=== PATIENT | female | born 1960 | race Caucasian/White ===

== ENCOUNTER 2017-04-28 21:51 | Observation (INO) | payer BC ==
[~2017-04-28 21:51] MED LIST: METH5 PO; PREV15CA20 PO; ST JTAB PO
[2017-04-28 21:52] VITALS: BP 136/74; PULSE 80; RESP 18; TEMP 98.9; O2SAT 97
[2017-04-28] MEDS ORDERED: FLEC1TAB8 PO (22:03)
[2017-04-28] MEDS ORDERED: METH5 PO (22:03)
[2017-04-28] MEDS ORDERED: PREV15CA15 PO (22:03)
[2017-04-28 22:07] VITALS: PULSE 76; RESP 16; O2SAT 98
[2017-04-28] MEDS ORDERED: SODIUM CHLORIDE 0.9% FLUSH 10 ML FLUSH IVF PRN (22:15)
--- NOTE | 2017-04-28 22:29 | PD ---
HPI Chief Complaint: Chest Pain Time Seen by Provider: 22:04 Travel History International Travel<30 days: No Contact w/Intl Traveler<30days: No Traveled to known affect area: No History of Present Illness HPI Patient is a 56-year-old female with a history of palpitations PACs nonsustained V. tach presents the emergency department with evaluation of chest pain in the center of her chest radiating to her back since about 11 AM today. Patient states she has chest pain intermittently and was last stressed approximately 18 months ago. She is followed by Dr. Raymond. Patient states the pain is just aggravating cramping with some mild shortness of breath. She states she has a history of leukemia and breast cancer both of which been in remission since 2001. She denies any long trips history of blood clots. Denies any history of heart attacks. States pain is been fairly constant about 11 AM today. She is tried her flecainide which did not help her pain. PFSH Past Medical History Arthritis: No Heart Rhythm Problems: Yes (Mitral valve prolapse) Cancer: Yes (Breast cancer,Hodgkin Lymphoma) Cardiovascular Problems: Yes High Cholesterol: No Chemotherapy: Yes (2001 hodgkins lymphoma) Chest Pain: Yes (this admit) Congestive Heart Failure: No Cerebrovascular Accident: No Diabetes: No Patient Takes Glucophage: No Diminished Hearing: No Endocrine: Yes Gastrointestinal Disorders: Yes GERD: Yes (GERD) Genitourinary: Yes Hypertension: Yes Musculoskeletal: Yes Neurologic: Yes Psychiatric: No Reproductive: Yes (Total hysterectomy) Respiratory: No Immunizations Current: No Migraines: Yes Radiation Therapy: Yes (1997 breast cx) Seizures: No Sickle Cell Disease: No Thyroid Disease: Yes (Hyperthyroid) Menopausal: Yes Past Surgical History Abdominal Surgery: Yes (Gall bladder removal) AICD: No Appendectomy: Yes Arteriovenous Shunt: No Body Medical Devices: surgical clamps from breast surgery Cardiac Surgery: No Cholecystectomy: Yes Ear Surgery: No Endocrine Surgery: No Eye Surgery: No Gynecologic Surgery: Yes (Total hysterectomy) Hysterectomy: Yes Insulin Pump: No Joint Replacement: No Oral Surgery: No Pacemaker: No Thoracic Surgery: No Tonsillectomy: Yes Other Surgery: Yes (Lumpectomy,tosillectomy) Social History Alcohol Use: No Tobacco Use: No Substance Use: No Allergies-Medications (Allergen,Severity, Reaction): Coded Allergies: Codeine (Unverified Allergy, Intermediate, NASUSEA/VOMITING, 04/28/17) Adhesives (Verified Adverse Reaction, Unknown, RASH, 04/28/17) Reported Meds & Prescriptions Reported Meds & Active Scripts Active Reported Flecainide (Flecainide Acetate) 50 Mg Tab 50 Mg PO BID Tapazole (Methimazole) 5 Mg Tab 2.5 Mg PO DAILY Prevacid (Lansoprazole) 15 Mg Capdr 15 Mg PO DAILY Review of Systems Except as stated in HPI: all other systems reviewed are Neg Physical Exam Narrative GENERAL: Well-developed well-nourished no obvious distress SKIN: Focused skin assessment warm/dry. HEAD: Atraumatic. Normocephalic. EYES: Pupils equal and round. No scleral icterus. No injection or drainage. ENT: No nasal bleeding or discharge. Mucous membranes pink and moist. NECK: Trachea midline. No JVD. CARDIOVASCULAR: Regular rate and rhythm. No murmur appreciated. No gallops no rubs. 2+ bilateral equal pulses in all 4 extremities. RESPIRATORY: No accessory muscle use. Clear to auscultation. Breath sounds equal bilaterally. GASTROINTESTINAL: Abdomen soft, non-tender, nondistended. Hepatic and splenic margins not palpable. MUSCULOSKELETAL: No obvious deformities. No clubbing. No cyanosis. No edema. NEUROLOGICAL: Awake and alert. No obvious cranial nerve deficits. Motor grossly within normal limits. Normal speech. PSYCHIATRIC: Appropriate mood and affect; insight and judgment normal. Data Data Last Documented VS Vital Signs Date Time Temp Pulse Resp B/P Pulse Ox O2 Delivery O2 Flow Rate FiO2 04/28/17 22:59 81 16 116/67 98 Nasal Cannula 2 04/28/17 21:52 98.9 Orders Electrocardiogram (04/28/17 22:05) Ckmb (Isoenzyme) Profile (04/28/17 22:05) Complete Blood Count With Diff (04/28/17 22:05) Comprehensive Metabolic Panel (04/28/17 22:05) Magnesium (Mg) (04/28/17 22:05) Prothrombin Time / Inr (Pt) (04/28/17 22:05) Act Partial Throm Time (Ptt) (04/28/17 22:05) Troponin I (04/28/17 22:05) Chest, Single Ap (04/28/17 22:05) Ecg Monitoring (04/28/17 22:05) Iv Access Insert/Monitor (04/28/17 22:05) Oximetry (04/28/17 22:05) Oxygen Administration (04/28/17 22:05) Sodium Chloride 0.9% Flush (Ns Flush) (04/28/17 22:15) Aspirin Chew (Aspirin Chew) (04/28/17 22:30) Nitroglycerin Sl (Nitrostat Sl) (04/28/17 22:30) Admit Order (Ed Use Only) (04/29/17 ) Activity Bed Rest With Brp (04/29/17 00:26) Vital Signs (Adult) Q4H (04/29/17 00:26) Cardiac Rhythm .As Directed (04/29/17 00:26) Notify Dr: Other .PRN (04/29/17 00:26) Notify Parameters (04/29/17 00:26) Resp Oxygen Nasal Cannula (04/29/17 ) Ckmb (Isoenzyme) Profile (04/29/17 01:00) Ckmb (Isoenzyme) Profile (04/29/17 04:00) Troponin I (04/29/17 01:00) Troponin I (04/29/17 04:00) Electrocardiogram (04/29/17 01:00) Electrocardiogram (04/29/17 04:00) ^ Obtain (04/29/17 00:26) Sodium Chloride 0.9% Flush (Ns Flush) (04/29/17 00:30) Sodium Chloride 0.9% Flush (Ns Flush) (04/29/17 09:00) Mission Systems Engineer / Telemetry [id number].[id number] (04/29/17 00:26) Labs Laboratory Tests Test 04/28/17 22:15 White Blood Count 6.6 TH/MM3 Red Blood Count 4.59 MIL/MM3 Hemoglobin 13.1 GM/DL Hematocrit 39.5 % Mean Corpuscular Volume 86.0 FL Mean Corpuscular Hemoglobin 28.6 PG Mean Corpuscular Hemoglobin 33.3 % Concent Red Cell Distribution Width 12.9 % Platelet Count 178 TH/MM3 Mean Platelet Volume 8.7 FL Neutrophils (%) (Auto) 54.9 % Lymphocytes (%) (Auto) 34.3 % Monocytes (%) (Auto) 7.6 % Eosinophils (%) (Auto) 2.8 % Basophils (%) (Auto) 0.4 % Neutrophils # (Auto) 3.6 TH/MM3 Lymphocytes # (Auto) 2.3 TH/MM3 Monocytes # (Auto) 0.5 TH/MM3 Eosinophils # (Auto) 0.2 TH/MM3 Basophils # (Auto) 0.0 TH/MM3 CBC Comment DIFF FINAL Differential Comment Prothrombin Time 10.2 SEC Prothromb Time International 0.9 RATIO Ratio Activated Partial 28.5 SEC Thromboplast Time Sodium Level 141 MEQ/L Potassium Level 3.4 MEQ/L Chloride Level 105 MEQ/L Carbon Dioxide Level 26.0 MEQ/L Anion Gap 9 MEQ/L Blood Urea Nitrogen 18 MG/DL Creatinine 0.69 MG/DL Estimat Glomerular Filtration 88 ML/MIN Rate Random Glucose 110 MG/DL Calcium Level 8.6 MG/DL Magnesium Level 2.2 MG/DL Total Bilirubin 0.4 MG/DL Aspartate Amino Transf 28 U/L (AST/SGOT) Alanine Aminotransferase 31 U/L (ALT/SGPT) Alkaline Phosphatase 91 U/L Total Creatine Kinase 61 U/L Troponin I LESS THAN 0.02 NG/ML Total Protein 7.7 GM/DL Albumin 3.8 GM/DL MDM Medical Decision Making Medical Screen Exam Complete: Yes Emergency Medical Condition: Yes Interpretation(s) EKG shows normal sinus rhythm normal axis normal R-wave progression. Nonspecific T-wave abnormality in V2 V3. Nondiagnostic for STEMI. This is a borderline EKG. Differential Diagnosis ACS, AMI, palpitations, arrhythmia. Narrative Course Patient roomed in emergency department, she appears well and in no obvious distress. Given nitroglycerin and her chest discomfort was completely relieved. EKG troponin negative. Discussed with the patient that her stress test is out of date as her last one was in December 2015. Recommended observation chest pain center and she is agreeable. Chest pain-free upon admission. Diagnosis Primary Impression: Chest pain Admitting Information Admitting Physician Requests: Observation Condition: Stable Danny Mclain MD Apr 28, 2017 22:29
[2017-04-28 22:30] LABS: AUTOMATED NEUTROPHIL # 3.6 TH/MM3 (1.8-7.7); BASOPHIL % 0.4 % (0.0-2.0); EOSINOPHIL # 0.2 TH/MM3 (0-0.4); EOSINOPHIL % 2.8 % (0.0-4.0); HEMATOCRIT 39.5 % (35.0-46.0); HEMO FLAGS DIFF FINAL; LYMPH % 34.3 % (9.0-44.0); LYMPHOCYTE # 2.3 TH/MM3 (1.0-4.8); MEAN CORPUSCULAR HEMOGLOBIN 28.6 PG (27.0-34.0); MEAN CORPUSCULAR HGB CONC 33.3 % (32.0-36.0); MONO % 7.6 % (0.0-8.0); NEUT % 54.9 % (16.0-70.0); PLATELET COUNT 178 TH/MM3 (150-450); RED BLOOD COUNT 4.59 MIL/MM3 (4.00-5.30); RED CELL DISTRIBUTION WIDTH 12.9 % (11.6-17.2); WHITE BLOOD COUNT 6.6 TH/MM3 (4.0-11.0)
[2017-04-28] MEDS ORDERED: ASPIRIN 81 MG CHEW TAB CHEW ONE (22:30)
[2017-04-28] MEDS: NITROGLYCERIN 0.4 MG SL 25 TABS/BTL SL SCH ×3 (22:35→22:49)
[2017-04-28 22:39] LABS: APTT (PATIENT) 28.5 SEC (24.3-30.1); INTERNATIONAL NORMALIZED RATIO 0.9 RATIO; PROTHROMBIN TIME - PATIENT 10.2 SEC (9.8-11.6)
--- NOTE | 2017-04-28 22:51 | RADRPT ---
EXAM DATE/TIME: 04/28/2017 22:16 [facility] COMPARISON: CHEST SINGLE AP, December 16, 2014, 0:22. INDICATIONS : Chest pain and shortness of breath. MEDICAL HISTORY : Hypertension. Gastroesophageal reflux disease. Mitral Valve Prolapse SURGICAL HISTORY : None. ENCOUNTER: Initial ACUITY: 1 day PAIN SCORE: 6/10 LOCATION: chest FINDINGS: Single AP view of the chest. The lungs are clear. Cardiomediastinal silhouette within normal limits. No evidence of pleural effusion or pneumothorax. CONCLUSION: No acute cardiopulmonary disease identified. Yonatan Thompson MD on April 28, 2017 at 22:49 Board Certified Radiologist. This report was verified electronically.
[2017-04-28 22:59] VITALS: BP 116/67; PULSE 81; RESP 16; O2SAT 98
[2017-04-28 23:07] LABS: CHLORIDE 105 MEQ/L (98-107); POTASSIUM 3.4 MEQ/L (3.5-5.1); SODIUM (NA) 141 MEQ/L (136-145)
[2017-04-28 23:30] LABS: ALKALINE PHOSPHATASE 91 U/L (45-117); ALT (GPT) 31 U/L (10-53); ANION GAP 9 MEQ/L (5-15); AST (GOT) 28 U/L (15-37); BLOOD UREA NITROGEN 18 MG/DL (7-18); CREATINE KINASE 61 U/L (26-192); GLOMERULAR FILTRATION RATE 88 ML/MIN (>89); MAGNESIUM 2.2 MG/DL (1.5-2.5); TOTAL BILIRUBIN ADULT 0.4 MG/DL (0.2-1.0)
[2017-04-29] VITALS (9 sets, daily range): BP systolic 111–117; BP diastolic 62–70; PULSE 13–79; RESP 16–20; TEMP 98.4–98.6; O2SAT 95–96
[2017-04-29] MEDS ORDERED: SODIUM CHLORIDE 0.9% FLUSH 10 ML FLUSH IV FLUSH PRN (00:30)
[2017-04-29 01:53] LABS: CREATINE KINASE 50 U/L (26-192)
[2017-04-29 05:23] LABS: CREATINE KINASE 48 U/L (26-192)
[2017-04-29] MEDS ORDERED: ACETAMINOPHEN 500 MG CPLT PO PRN (07:45)
[2017-04-29] MEDS ORDERED: NITROGLYCERIN 0.4 MG SL 25 TABS/BTL SL PRN (07:45)
[2017-04-29] MEDS ORDERED: ONDANSETRON HCL 4 MG/2 ML VIAL IV PRN (07:45)
--- NOTE | 2017-04-29 08:49 | HHI.HP ---
[facility] Primary Care Physician Berny Sheikh MD Chief Complaint Chest pain and palpitations History of Present Illness 56-year-old female with history of breast cancer, Hodgkin's lymphoma, GERD, hyperthyroidism, and frequent PACs presents to emergency room for further evaluation of chest pain. Onset yesterday 2 PM. Location substernal. Characterized as stabbing and pinching pain. Pain initially intermittent accompanied with palpitations. Throughout the day discomfort and palpations increased in frequency and severity. No radiation of pain. Duration lasted most of yesterday and evening hours. No current chest discomfort. No known precipitating or relieving factors. States aspirin relieved pain "somewhat." Follows with Dr. Raymond and Dr. Feldman since December 2015 for frequent PACs. Recently started on Tambocor 9 days ago for increase in frequency of palpations. Review of Systems General: No fatigue,weakness, fever, chills, or recent illness. Has been in her general state of health. HEENT: Chronic intermittent vertigo due to reported inner ear. Currently following with an ENT as dizziness has returned. No POWER, no vision changes, no nasal congestion or drainage CV: As stated above. Denies any current chest pain, pressure, or palpitations. RESP: No SOB, cough, wheeze, or recent URI. GI: No nausea, vomiting, bowel changes, diarrhea, or constipation. : No dysuria, urgency, frequency. History of frequent UTIs, follows with urologist. EXT: No lower leg edema MS: No discomfort or change in ROM NEURO: No difficulty with balance, LOC, syncopal episodes, motor/sensory deficits. December 2015 near-syncopal event, seen here at [place]. At that time established with Dr. Ramyond, PSYCH: No anxiety, depression, or situational stress. Past Family Social History Allergies: Coded Allergies: Codeine (Unverified Allergy, Intermediate, NASUSEA/VOMITING, 04/28/17) Adhesives (Verified Adverse Reaction, Unknown, RASH, 04/28/17) Past Medical History Breast cancer-in remission since 1997, Hodgkin's lymphomain remission sent 2001 , GERD, mitral valve prolapse, migraines, hyperthyroidism, vertigo, frequent PACs, frequent urinary tract infections Past Surgical History Hysterectomy, appendectomy, cholecystectomy, lumpectomy Reported Medications Active Reported Flecainide (Flecainide Acetate) 50 Mg Tab 50 Mg PO BID Tapazole (Methimazole) 5 Mg Tab 2.5 Mg PO DAILY Omeprazole 20mg PO DAILY Active Ordered Medications Current Medications Medications (Trade) Dose Ordered Sig/Keiko Route Start Time Stop Time Status Last Admin (NS Flush) 2 ml UNSCH PRN IV FLUSH 04/29/17 00:30 (NS Flush) 2 ml BID IV FLUSH 04/29/17 09:00 (Tylenol) 500 mg Q4H PRN PO 04/29/17 07:45 (Zofran Inj) 4 mg Q6H PRN IV 04/29/17 07:45 (Nitrostat Sl) 0.4 mg Q5M PRN SL 04/29/17 07:45 (Aspirin) 325 mg DAILY PO 04/29/17 09:00 (Tambocor) 50 mg BID PO 04/29/17 09:00 (Tapazole) 2.5 mg DAILY PO 04/29/17 09:00 (Protonix) 20 mg DAILY PO 04/29/17 09:00 (Pill Splitter) 1 ea UNSCH PRN OTHER 04/29/17 08:15 Family History Noncontributory for early onset cardiovascular disease. Social History No known hypertension, diabetes, personal coronary artery disease, or hyperlipidemia. Lifelong nonsmoker. Denies any alcohol or illegal drug use. Endorses an active lifestyle. Past cardiac testing 01/12/2016 ETT-negative for stress-induced ischemia. After admission December [address] Raymond. Completed an ECHO and cartotid ultrasounds-reported to both be unremarkable. Drier Feeder is Dr. Raymond. EP blood bank technician is Dr. Feldman. Holter monitor4 months ago, found frequent PACs. Dr. Feldman ordered Tambocor 9 days ago for increasing PACs. Dr. Feldman has requested her to follow up with Dr. Raymond to repeat ECHO and Holter monitor. Seen Dr. Raymond last week and has appointment for repeat echocardiogram this coming Sunday. Physical Exam Vital Signs Vital Signs Date Time Temp Pulse Resp B/P Pulse Ox O2 Delivery O2 Flow Rate FiO2 04/29/17 08:35 98.6 74 16 112/70 96 04/29/17 04:40 13 04/29/17 04:00 98.4 70 20 111/63 96 04/29/17 02:15 73 04/29/17 02:01 98.5 69 18 117/67 96 04/28/17 22:59 81 16 116/67 98 Nasal Cannula 2 04/28/17 22:07 98 Nasal Cannula 2 04/28/17 22:07 76 16 98 Nasal Cannula 2 04/28/17 22:07 76 96 Room Air 04/28/17 21:52 98.9 80 18 136/74 97 Room Air Physical Exam GENERAL: Alert WN, WD, NAD, pleasant, female who appears Jumper than stated age. HEAD: NC, AT NECK: Supple, no masses CV: RRR, without murmur, rub, gallop, no JVD, S1-S2 no S3-S4. No carotid bruits. RESP: Clear lungs throughout bilateral, no crackles, wheeze, rhonchi, symmetrical chest rise, nonlabored, able to speak in full sentences ABD: Soft, NT, ND, no masses, positive bowel tones BACK: No CVAT EXT: Pulses +24, no dependent edema MS: Normal tone 4 extremities, nontender, no obvious deformities, full range of motion NEURO: CN II through CN XII grossly intact, motor strength 5/5 PSYCH: A+O 3, pleasant affect, appropriate speech, appropriate mood and affect , insight and judgment SKIN: Normal turgor, normal texture, no lesions, no rashes, even hair distribution, artificial nails Laboratory Laboratory Tests Test 04/28/17 04/29/17 04/29/17 22:15 01:15 04:10 White Blood Count 6.6 Red Blood Count 4.59 Hemoglobin 13.1 Hematocrit 39.5 Mean Corpuscular Volume 86.0 Mean Corpuscular Hemoglobin 28.6 Mean Corpuscular Hemoglobin 33.3 Concent Red Cell Distribution Width 12.9 Platelet Count 178 Mean Platelet Volume 8.7 Neutrophils (%) (Auto) 54.9 Lymphocytes (%) (Auto) 34.3 Monocytes (%) (Auto) 7.6 Eosinophils (%) (Auto) 2.8 Basophils (%) (Auto) 0.4 Neutrophils # (Auto) 3.6 Lymphocytes # (Auto) 2.3 Monocytes # (Auto) 0.5 Eosinophils # (Auto) 0.2 Basophils # (Auto) 0.0 CBC Comment DIFF FINAL Differential Comment Prothrombin Time 10.2 Prothromb Time International 0.9 Ratio Activated Partial 28.5 Thromboplast Time Sodium Level 141 Potassium Level 3.4 Chloride Level 105 Carbon Dioxide Level 26.0 Anion Gap 9 Blood Urea Nitrogen 18 Creatinine 0.69 Estimat Glomerular Filtration 88 Rate Random Glucose 110 Calcium Level 8.6 Magnesium Level 2.2 Total Bilirubin 0.4 Aspartate Amino Transf 28 (AST/SGOT) Alanine Aminotransferase 31 (ALT/SGPT) Alkaline Phosphatase 91 Total Creatine Kinase 61 50 48 Troponin I LESS THAN 0.02 LESS THAN 0.02 LESS THAN 0.02 Total Protein 7.7 Albumin 3.8 Result Diagram: 04/28/17221404/28/172214 Imaging Last Impressions Chest X-Ray 04/28/172204 Signed Impressions: Service Date/Time: Friday, April 28, 2017 22:16 - CONCLUSION: No acute cardiopulmonary disease identified. Yonatan Thompson MD Course EKG Normal sinus rhythm, normal axis, no ST or T-segment changes Assessment and Plan Assessment and Plan #1 Chest painadmitted to chest pain center. Ruled out with 3 sets of EKGs, cardiac enzymes, and monitored overnight. Will be seen and evaluated by Dr. Andre Cochran. Chest discomfort atypical and most likely will not complete an additional cardiac stress test. This will be determined by Dr. Andre Cochran. Patient agreeable to plan of care. #2 Arrhythmiacontinue cardiac monitoring, no cardiac arrhythmias noted on telemetry, continue Tambocor. #3 GERDcontinue omeprazole #4 Hyperthyroidismcontinue Tapazole 11:00 Seen and evaluated by Dr. Cochran. No further cardiac testing at this time. Instructed to follow up with Dr. Feldman and Dr. Raymond as previously instructed, keeping echocardiogram appointment this Sunday. Jovita Leavitt Apr 29, 2017 08:49
[2017-04-29] MEDS ORDERED: FLECAINIDE ACETATE 100 MG TAB PO SCH (09:00)
[2017-04-29] MEDS ORDERED: METHIMAZOLE 5 MG TAB PO SCH (09:00)
[2017-04-29] MEDS ORDERED: ASPIRIN 325 MG TAB PO SCH (09:00)
[2017-04-29] MEDS ORDERED: PANTOPRAZOLE SOD 20 MG DELAYED RELEASE TAB PO SCH (09:00)
[2017-04-29] MEDS ORDERED: SODIUM CHLORIDE 0.9% FLUSH 10 ML FLUSH IV FLUSH SCH (09:00)
[2017-04-29] MEDS: PILL SPLITTER OTHER PRN ×2 (09:48→11:04)
--- NOTE | 2017-04-29 11:46 | HHI.DCPOC ---
Discharge Care Plan Diagnosis: (1) Atypical chest pain (2) Personal history of cardiac arrhythmia (3) GERD (gastroesophageal reflux disease) Goals to Promote Your Health * To prevent worsening of your condition and complications * To maintain your health at the optimal level Directions to Meet Your Goals Take your medications as prescribed Follow your dietary instruction Follow activity as directed Keep your appointments as scheduled Take your immunizations and boosters as scheduled If your symptoms worsen call your PCP, if no PCP go to Urgent Care Center or Emergency Room Smoking is Dangerous to Your Health. Avoid second hand smoke Call the 24-hour hour crisis hotline for domestic abuse at Jovita Leavitt Apr 29, 2017 11:46
[2017-04-29] MEDS ORDERED: OMEP20TA PO (11:57)
--- NOTE | 2017-04-29 13:20 | EKG ---
Date Performed: 04/29/2017 Time Performed: 04:38:04 PTAGE: 56 years EKG: Sinus rhythm WITH FIRST DEGREE AV BLOCK NONSPECIFIC T-WAVE ABNORMALITY ABNORMAL ECG PREVIOUS TRACING : 04/29/2017 01.14 DOCTOR: Andre Cochran Interpretating Date/Time 04/29/2017 13:18:47
--- NOTE | 2017-04-29 13:24 | EKG ---
Date Performed: 04/29/2017 Time Performed: 01:14:06 PTAGE: 56 years EKG: Sinus rhythm NONSPECIFIC T-WAVE ABNORMALITY BORDERLINE ECG PREVIOUS TRACING : 04/28/2017 21.59 Since previous tracing, no significant change noted DOCTOR: Andre Cochran Interpretating Date/Time 04/29/2017 13:22:49
--- NOTE | 2017-04-29 14:50 | EKG ---
Date Performed: 04/28/2017 Time Performed: 21:59:58 PTAGE: 56 years EKG: Sinus rhythm NONSPECIFIC T-WAVE ABNORMALITY BORDERLINE ECG PREVIOUS TRACING : 01/11/2016 20.24 Since previous tracing, no significant change noted DOCTOR: Andre Cochran Interpretating Date/Time 04/29/2017 14:49:24
== END 2017-04-29 14:46 | disposition home or self-care (01) ==
LOC: NEPC 21:51 → NEDA 04-29 00:29 → NEPFCDU 04-29 02:01
DX: R07.89 Other chest pain (principal); I49.9 Cardiac arrhythmia, unspecified; K21.9 Gastro-esophageal reflux disease without esophagitis; E05.90 Thyrotoxicosis, unspecified without thyrotoxic crisis or storm; R00.2 Palpitations; R42 Dizziness and giddiness; I34.1 Nonrheumatic mitral (valve) prolapse; R06.02 Shortness of breath; I10 Essential (primary) hypertension; I47.2 Ventricular tachycardia; I44.0 Atrioventricular block, first degree; R94.31 Abnormal electrocardiogram [ECG] [EKG]; Z85.3 Personal history of malignant neoplasm of breast; Z85.71 Personal history of Hodgkin lymphoma; Z85.6 Personal history of leukemia; Z87.440 Personal history of urinary (tract) infections
CPT/HCPCS: 71010; 80053; 82550; 83735; 84484; 85025; 85610; 85730; 93005; 99285; G0378

== ENCOUNTER 2017-05-07 06:21 | Observation (INO) | payer BC ==
[~2017-05-07] VITALS: Ht 172.7 cm; Wt 77.0 kg
[2017-05-07] VITALS (10 sets, daily range): BP systolic 98–128; BP diastolic 59–77; PULSE 73–90; RESP 16–20; TEMP 97.6–98.5; O2SAT 95–99
[~2017-05-07 06:21] MED LIST changes: +FLEC1TAB8 PO; +OMEP20TA PO; -PREV15CA20 PO; -ST JTAB PO
[2017-05-07] MEDS ORDERED: IOHEXOL 350 MG/ML 10 ML VIAL (for RAD DIAG) IVCONTRAST ONE (06:22)
--- NOTE | 2017-05-07 07:17 | RADRPT ---
EXAM DATE/TIME: 05/07/2017 07:01 [facility] COMPARISON: CHEST SINGLE AP, April 28, 2017, 22:16. INDICATIONS : Chest pain. MEDICAL HISTORY : Lymphoma. Carcinoma, breast. SURGICAL HISTORY : Appendectomy. Cholecystectomy.Hysterectomy. ENCOUNTER: Initial ACUITY: 2 weeks PAIN SCORE: 7/10 LOCATION: center chest FINDINGS: A single view of the chest demonstrates the lungs to be symmetrically aerated without evidence of mas s, infiltrate or effusion. The cardiomediastinal contours are unremarkable. Osseous structures are intact. Surgical clips in the right axilla CONCLUSION: No acute disease. Cory Lin MD on May 07, 2017 at 7:15 Board Certified Radiologist. This report was verified electronically.
--- NOTE | 2017-05-07 07:48 | EKG ---
Date Performed: 05/07/2017 Time Performed: 06:37:40 PTAGE: 56 years EKG: Sinus rhythm NORMAL ECG PREVIOUS TRACING : 04/29/2017 04.38 No significant change from previous tracing noted. DOCTOR: Aleks De Dios Interpretating Date/Time 05/07/2017 07:46:40
[2017-05-07 08:01] LABS: AUTOMATED NEUTROPHIL # 3.2 TH/MM3 (1.8-7.7); BASOPHIL % 0.2 % (0.0-2.0); EOSINOPHIL # 0.2 TH/MM3 (0-0.4); EOSINOPHIL % 3.3 % (0.0-4.0); HEMATOCRIT 40.4 % (35.0-46.0); HEMO FLAGS DIFF FINAL; LYMPH % 37.8 % (9.0-44.0); LYMPHOCYTE # 2.4 TH/MM3 (1.0-4.8); MEAN CELL VOLUME 86.5 FL (80.0-100.0); MEAN CORPUSCULAR HGB CONC 33.6 % (32.0-36.0); MONO % 7.1 % (0.0-8.0); NEUT % 51.6 % (16.0-70.0); PLATELET COUNT 182 TH/MM3 (150-450); RED BLOOD COUNT 4.67 MIL/MM3 (4.00-5.30); RED CELL DISTRIBUTION WIDTH 13.1 % (11.6-17.2); WHITE BLOOD COUNT 6.2 TH/MM3 (4.0-11.0)
[2017-05-07 08:25] LABS: ANION GAP 8 MEQ/L (5-15); BICARBONATE 25.8 MEQ/L (21.0-32.0); BLOOD UREA NITROGEN 13 MG/DL (7-18); CHLORIDE 104 MEQ/L (98-107); GLOMERULAR FILTRATION RATE 85 ML/MIN (>89); POTASSIUM 3.7 MEQ/L (3.5-5.1); SODIUM (NA) 138 MEQ/L (136-145)
[2017-05-07 08:31] LABS: CREATINE KINASE 52 U/L (26-192)
[2017-05-07] MEDS ORDERED: MORPHINE SULFATE 4 MG/ML INJ IV PUSH ONE (09:00)
--- NOTE | 2017-05-07 10:09 | RADRPT ---
EXAM DATE/TIME: 05/07/2017 09:35 [facility] COMPARISON: No previous studies available for comparison. INDICATIONS : Chest pain with palpitations. IV CONTRAST: 75 cc Omnipaque 350 (iohexol) IV RADIATION DOSE: 7.32 CTDIvol (mGy) MEDICAL HISTORY : Hypertension. Carcinoma, breast. Mitral valve prolapse, Hodgkin's lymphoma SURGICAL HISTORY : Cholecystectomy. Appendectomy. ENCOUNTER: Initial ACUITY: 1 day PAIN SCALE: 0/10 LOCATION: Bilateral chest TECHNIQUE: Volumetric scanning was performed using a multi-row detector CT scanner. The data was post processed with a variety of visualization algorithms including full volume maximum intensity projection, multi -planar sliding thin slab reformation, curved planar reformation, and surface rendering techniques. Using automated exposure control and adjustment of the mA and/or kV according to patient size, radiat ion dose was kept as low as reasonably achievable to obtain optimal diagnostic quality images. DICOM format image data is available electronically for review and comparison. FINDINGS: Thoracic/abdominal aorta: The thoracic and abdominal aorta are normal in caliber and course. No dissection. No surrounding vishnu vinod. In-Flow vessels are patent. The celiac, SMA, JADON, and renal arteries are patent. Heart and mediastinum: The heart is normal in size. No pericardial effusion. No adenopathy. Pulmonary arteries are normal in caliber. Lung parenchyma: The lungs are clear without infiltrate or mass. Bilateral apical pleural thickening is symmetrical. N o appreciable bronchiectasis. Other structures: The gallbladder is surgically absent. The abdominal viscera otherwise unremarkable. CONCLUSION: 1. Aorta is unremarkable. 2. No acute intrathoracic or intra-abdominal abnormality. 3. Prior cholecystectomy. Dequan Quiroz Jr., MD on May 07, 2017 at 10:00 Board Certified Radiologist. This report was verified electronically.
--- NOTE | 2017-05-07 10:17 | PD ---
HPI Chief Complaint: Chest Pain Time Seen by Provider: 07:31 Travel History International Travel<30 days: No Contact w/Intl Traveler<30days: No Traveled to known affect area: No History of Present Illness HPI 56-year-old female came to the emergency room with her with history of left-sided chest pain that radiates to her left shoulder and to her back. Patient says this pain started at 5:30 in the morning. However she has had this pain intermittently for past few weeks. Seen by her senior resident care director Dr. Raymond who did an echocardiogram. Patient is waiting for the test result. Patient has been having frequent PVCs and PACs and was started on flecainide few days ago. She also sees Dr. Feldman who started her on flecanide. Currently her chest pain seems significant and she appeared to be in distress. Vital signs were acceptable. Patient is awake and answering questions appropriately. No aggravating or relieving factors identified. PFSH Past Medical History Narrative Medical List of her past medical, surgical, social and family history is reviewed from the nursing note. Arthritis: No Heart Rhythm Problems: Yes (Mitral valve prolapse) Cancer: Yes (Breast cancer,Hodgkin Lymphoma) Cardiovascular Problems: No High Cholesterol: No Chemotherapy: Yes (2001 hodgkins lymphoma) Chest Pain: Yes (this admit) Congestive Heart Failure: No Cerebrovascular Accident: No Diabetes: No Diminished Hearing: No Endocrine: Yes Gastrointestinal Disorders: Yes GERD: Yes (GERD) Genitourinary: Yes Hypertension: Yes Musculoskeletal: Yes Neurologic: Yes Psychiatric: No Reproductive: Yes (Total hysterectomy) Respiratory: No Immunizations Current: No Migraines: Yes Radiation Therapy: Yes (1997 breast cx right) Seizures: No Sickle Cell Disease: No Thyroid Disease: Yes (Hyperthyroid) Tetanus Vaccination: > 5 Years Influenza Vaccination: Yes Menopausal: Yes Past Surgical History Abdominal Surgery: Yes (Gall bladder removal) AICD: No Appendectomy: Yes Arteriovenous Shunt: No Body Medical Devices: surgical clamps from breast surgery Cardiac Surgery: No Cholecystectomy: Yes Ear Surgery: No Endocrine Surgery: No Eye Surgery: No Gynecologic Surgery: Yes (Total hysterectomy) Hysterectomy: Yes (TOTAL) Insulin Pump: No Joint Replacement: No Oral Surgery: No Pacemaker: No Thoracic Surgery: No Tonsillectomy: Yes (AND ADENOIDS) Other Surgery: Yes (R Lumpectomy with nodes,tosillectomy) Social History Alcohol Use: No Tobacco Use: No Substance Use: No Allergies-Medications (Allergen,Severity, Reaction): Coded Allergies: codeine (Unverified Allergy, Intermediate, NASUSEA/VOMITING, 05/07/17) adhesive (Unverified Adverse Reaction, Unknown, RASH, 05/07/17) Comments List of her allergies reviewed from the nursing note. Reported Meds & Prescriptions Reported Meds & Active Scripts Active Reported Omeprazole 20 Mg Tab 20 Mg PO DAILY Flecainide (Flecainide Acetate) 50 Mg Tab 50 Mg PO BID Tapazole (Methimazole) 5 Mg Tab 2.5 Mg PO DAILY Narrative Medication List of her home medications reviewed from the nursing note. Review of Systems Except as stated in HPI: all other systems reviewed are Neg Physical Exam Narrative GENERAL: Awake, alert, moderate distress SKIN: Focused skin assessment warm/dry. HEAD: Atraumatic. Normocephalic. EYES: Pupils equal and round. No scleral icterus. No injection or drainage. ENT: No nasal bleeding or discharge. Mucous membranes pink and moist. NECK: Trachea midline. No JVD. CARDIOVASCULAR: Regular rate and rhythm. No murmur appreciated. RESPIRATORY: No accessory muscle use. Clear to auscultation. Breath sounds equal bilaterally. GASTROINTESTINAL: Abdomen soft, non-tender, nondistended. Hepatic and splenic margins not palpable. MUSCULOSKELETAL: No obvious deformities. No clubbing. No cyanosis. No edema. NEUROLOGICAL: Awake and alert. No obvious cranial nerve deficits. Motor grossly within normal limits. Normal speech. PSYCHIATRIC: Appropriate mood and affect; insight and judgment normal. Data Data Last Documented VS Vital Signs Date Time Temp Pulse Resp B/P (MAP) Pulse Ox O2 Delivery O2 Flow Rate FiO2 05/07/17 09:33 74 16 98/63 (75) 99 Nasal Cannula 2.00 05/07/17 06:24 98.0 Orders Orders Electrocardiogram (05/07/17 06:44) Complete Blood Count With Diff (05/07/17 06:44) Basic Metabolic Panel (Bmp) (05/07/17 06:44) Ckmb (Isoenzyme) Profile (05/07/17 06:44) Troponin I (05/07/17 06:44) Chest, Single Ap (05/07/17 06:44) Iv Access Insert/Monitor (05/07/17 06:44) Ecg Monitoring (05/07/17 06:44) Oxygen Administration (05/07/17 06:44) Oximetry (05/07/17 06:44) Cta Thor Abd Aorta W Iv C W3d (05/07/17 ) Morphine Inj (Morphine Inj) (05/07/17 09:00) Iohexol 350 Inj (Omnipaque 350 Inj) (05/07/17 06:22) Admit Order (Ed Use Only) (05/07/17 11:27) Labs Laboratory Tests Test 05/07/17 07:15 White Blood Count 6.2 TH/MM3 Red Blood Count 4.67 MIL/MM3 Hemoglobin 13.6 GM/DL Hematocrit 40.4 % Mean Corpuscular Volume 86.5 FL Mean Corpuscular Hemoglobin 29.0 PG Mean Corpuscular Hemoglobin Concent 33.6 % Red Cell Distribution Width 13.1 % Platelet Count 182 TH/MM3 Mean Platelet Volume 9.3 FL Neutrophils (%) (Auto) 51.6 % Lymphocytes (%) (Auto) 37.8 % Monocytes (%) (Auto) 7.1 % Eosinophils (%) (Auto) 3.3 % Basophils (%) (Auto) 0.2 % Neutrophils # (Auto) 3.2 TH/MM3 Lymphocytes # (Auto) 2.4 TH/MM3 Monocytes # (Auto) 0.4 TH/MM3 Eosinophils # (Auto) 0.2 TH/MM3 Basophils # (Auto) 0.0 TH/MM3 CBC Comment DIFF FINAL Differential Comment Blood Urea Nitrogen 13 MG/DL Creatinine 0.71 MG/DL Random Glucose 84 MG/DL Calcium Level 8.6 MG/DL Sodium Level 138 MEQ/L Potassium Level 3.7 MEQ/L Chloride Level 104 MEQ/L Carbon Dioxide Level 25.8 MEQ/L Anion Gap 8 MEQ/L Estimat Glomerular Filtration Rate 85 ML/MIN Total Creatine Kinase 52 U/L Troponin I LESS THAN 0.02 NG/ML MDM Medical Decision Making Medical Screen Exam Complete: Yes Emergency Medical Condition: Yes Medical Record Reviewed: Yes Interpretation(s) Twelve-lead EKG was reviewed by me. Normal sinus rhythm, normal axis, nonspecific ST-T wave changes. Heart rate of 72 bpm. Differential Diagnosis Non-STEMI, ACS, PE, aortic dissection. Narrative Course 10:15 AM blood test results came back and within normal limit. I had ordered 4 mg of IV morphine for the pain but upon reassessment patient said her pain level has come down and she doesn't need it at this point. I discussed the case with her senior resident care director Dr. Raymond who has recommended to admit the patient overnight to medical floor under hospitalist service. I had ordered a CT thoracic aortogram which is negative. Patient will be admitted to hospitalist. Awaiting for the hospitalist to call back. 11:09 AM still awaiting for the hospitalist to call back for admission. Procedures EKG Prior to Arrival: No Physician Communication Physician Communication Dr. Raymond Diagnosis Primary Impression: Chest pain Qualified Codes: R07.9 - Chest pain, unspecified Admitting Information Admitting Physician Requests: Observation Scripts Atorvastatin (Lipitor) 20 Mg Tab 20 MG PO HS for Cholesterol Management, #30 TAB 0 Refills Prov: Arabella Cazares DO 05/08/[address] (Aspirin EC) 81 Mg Tabdr 81 MG PO DAILY for Blood Clot Prevention for 90 Days, #90 TAB 0 Refills Prov: Arabella Cazares DO 05/08/17 Annalise Gamble MD May 07, 2017 10:17
[2017-05-07] MEDS ORDERED: IOHEXOL 350 MG/ML 50 ML BTL (for Cath Lab) OTHER ONE (11:29)
[2017-05-07] MEDS ORDERED: ZOLPIDEM TARTRATE 5 MG TAB PO PRN (11:45)
[2017-05-07] MEDS ORDERED: ONDANSETRON HCL 4 MG/2 ML VIAL IVP PRN (11:45)
[2017-05-07] MEDS ORDERED: MORPHINE SULFATE 4 MG/ML INJ IV PRN ×3 (11:45)
[2017-05-07] MEDS ORDERED: NALOXONE HCL 0.4 MG/ML AMP IV PRN (11:45)
[2017-05-07] MEDS ORDERED: PROCHLORPERAZINE 25 MG SUPP RECTAL PRN (11:45)
[2017-05-07] MEDS ORDERED: BISACODYL 10 MG SUPP RECTAL PRN (11:45)
[2017-05-07] MEDS ORDERED: LACTULOSE SYRUP 20 GM/30 ML CUP PO PRN (11:45)
[2017-05-07] MEDS ORDERED: NITROGLYCERIN 0.4 MG SL 25 TABS/BTL SL PRN (11:45)
[2017-05-07] MEDS ORDERED: MAGNESIUM HYDROXIDE SUSP 30 ML CUP PO PRN (11:45)
[2017-05-07] MEDS ORDERED: SODIUM CHLORIDE 0.9% FLUSH 10 ML FLUSH IV FLUSH PRN ×2 (11:45)
[2017-05-07] MEDS ORDERED: traMADol HCL 50 MG TAB PO PRN ×2 (11:45)
[2017-05-07] MEDS ORDERED: SENNOSIDES 8.6 MG TAB PO PRN (11:45)
[2017-05-07] MEDS ORDERED: ACETAMINOPHEN 325 MG TAB PO PRN ×2 (11:45)
[2017-05-07 12:41] LABS: CREATINE KINASE 42 U/L (26-192)
[2017-05-07] MEDS ORDERED: PILL SPLITTER OTHER PRN (13:30)
[2017-05-07] MEDS ORDERED: ENOXAPARIN SODIUM 40 MG/0.4 ML SYRINGE SQ SCH (14:00)
--- NOTE | 2017-05-07 14:14 | MB ---
cc: ANTONIETA DOYLE M.D. DATE OF CONSULTATION: 05/07/2017 HISTORY OF PRESENT ILLNESS Sol is a very pleasant 56-year-old lady with history of V-tach, placed on flecainide by Dr. Amaro. She said she had a stress test about a year ago. I do not have the results but I recall there was no significant findings. She presents to the ER with complaint of severe chest pain, substernal chest area radiating to the infrascapular area, sharp, occurring at rest. Otherwise, denies any fever, chills, cough, GI or bleeding, PND, orthopnea, syncope or dizziness. She notes her palpitations are improved on flecainide but notes that her chest pain is associated with being on the flecainide. PAST MEDICAL HISTORY Per history of present illness. 1. She has a history of breast cancer. 2. Hodgkin's lymphoma. 3. GERD. 4. Hypertension. 5. Hysterectomy. 6. Hyperthyroidism. 7. Cholecystectomy. 8. Appendectomy. 9. Adenoidectomy. 10. Right lumpectomy. SOCIAL HISTORY Denies tobacco or alcohol use. ALLERGIES CODEINE AND ADHESIVES. MEDICATIONS Prior to admission: 1. Omeprazole 20 daily. 2. Flecainide 50 mg b.i.d. 3. Tapazole 5 mg daily. Medications in the hospital: 1. Tapazole 2.5 daily. 2. Aspirin 325 daily. 3. Flecainide 50 b.i.d. 4. Pantoprazole 20 daily. 5. Lovenox 40 subcu q.24 hours. PHYSICAL EXAMINATION VITAL SIGNS: Blood pressure 109/73, pulse 74, respiratory rate 20, temperature 98.0. GENERAL: She is alert and oriented x 3, in no acute distress. NECK: Supple. No JVD or bruits. CARDIOVASCULAR: Normal, S1, S2. No murmurs, rubs or gallops. LUNGS: Clear to auscultation bilaterally. ABDOMEN: Soft, nontender, nondistended with positive bowel sounds. EXTREMITIES: No lower extremity edema. LABORATORY DATA White count 6.2, hemoglobin 13.6, hematocrit 40.4, platelet count 182, troponin is less than 0.02 x2. Sodium 138, potassium 3.7, chloride 104, bicarb 25.8, BUN 13, creatinine 0.71. IMAGING STUDIES CTA of the chest is unremarkable. No dissection of the aorta. Chest x-ray showed no acute disease. Normal sinus rhythm and is normal. FINAL DIAGNOSES 1. Unstable angina. 2. [place] [employer] class IV angina. 3. History of V-tach. 4. History of lymphoma. 5. History of breast cancer. 6. Suspect she has probably had radiation to the chest. DISCUSSION 1. This patient has severe chest pain at rest which is new onset. Therefore, I do think left heart catheterization is medically necessary due to new onset severe substernal chest pain, [place] [employer] class IV angina, unstable angina, history of V-tach, history of probable radiation to the chest, multiple cardiac risk factors for significant coronary disease. The patient is undecided. I have explained to her the risks of the cath or PCI is 5-10% chance of , stroke, heart attack, bleeding, need for bypass surgery and need for surgery and need for dialysis, need for blood transfusion, bleeding, infection, anaphylaxis and arrhythmia. The patient understands, she also notes that she is not able to lie flat due to vertigo. If this is truly the case would either need to use conscious sedation and/or possibly to perform the procedure while the patient is intubated under general anesthesia, which I have explained to the patient, again she is undecided. We will put her on the schedule, keep her n.p.o. after midnight except for medications. Continue aspirin and flecainide. She is on subcu Lovenox for DVT prophylaxis. MD SONJA Irvin/CHARLIE /1:21 PM /1:51 PM
[2017-05-07] MEDS: SODIUM CHLOR 0.9% 1000 ML INJ 1,000 ML IV SCH ×2 (15:09→21:22)
[2017-05-07] MEDS: PANTOPRAZOLE SOD 20 MG DELAYED RELEASE TAB PO SCH (15:10)
--- NOTE | 2017-05-07 16:42 | HHI.HP ---
[facility] Service [facility] Primary Care Physician Berny Sheikh MD Admission Diagnosis chest pain, rule out ACS Diagnoses: (1) Vertigo, benign positional Diagnosis: Secondary (2) Chest pain Diagnosis: Principal (3) Personal history of cardiac arrhythmia Diagnosis: Secondary (4) Atypical chest pain Diagnosis: Secondary (5) GERD (gastroesophageal reflux disease) Diagnosis: Secondary (6) Hyperthyroidism Diagnosis: Secondary (7) Near syncope Diagnosis: Secondary (8) Headache Diagnosis: Secondary Chief Complaint: chest pain Travel History International Travel<30 Days: No Contact w/Intl Traveler <30 Da: No Traveled to Known Affected Are: No History of Present Illness The patient is a very pleasant 56-year-old lady with history of V-tach, for which she has been placed on flecainide by Dr. Amaro. She said she had a stress test about a year ago. Per chart review there were no significant findings of the stress test. She presents to the ER with complaint of severe chest pain, substernal chest area with radiating to the infrascapular area, sharp, occurring at rest. Otherwise, the patient denies any fever, chills, cough, GI or bleeding, PND, orthopnea, syncope or dizziness. She notes her palpitations are improved on flecainide but notes that her chest pain is associated with being on the flecainide. Patient appears to be quite anxious also at this time. Review of Systems Constitutional: DENIES: Fatigue, Fever, Weight gain, Weight loss, Chills Endocrine: DENIES: Heat/cold intolerance, Polydipsia Eyes: DENIES: Blurred vision, Diplopia, Eye inflammation, Eye pain Ears, nose, mouth, throat: COMPLAINS OF: Vertigo, DENIES: Hearing loss, Nasal discharge, Oral lesions, Throat pain, Hoarseness Respiratory: DENIES: Apneas, Cough, Snoring, Wheezing, Hemoptysis, Sputum production Cardiovascular: COMPLAINS OF: Chest pain, DENIES: Palpitations, Syncope, Dyspnea on Exertion, PND, Lower Extremity Edema Gastrointestinal: DENIES: Abdominal pain, Black stools, Bloody stools, Constipation, Diarrhea, Nausea Genitourinary: DENIES: Abnormal vaginal bleeding Musculoskeletal: DENIES: Joint pain, Muscle aches, Stiffness, Joint Swelling Integumentary: DENIES: Abnormal pigmentation, Pruritus Hematologic/lymphatic: DENIES: Bruising, Lymphadenopathy Immunologic/allergic: DENIES: Eczema, Urticaria Neurologic: DENIES: Abnormal gait, Headache, Localized weakness, Paresthesias, Speech Problems Psychiatric: COMPLAINS OF: Anxiety, DENIES: Confusion, Mood changes, Depression , Hallucinations, Agitation, Suicidal Ideation, Homicidal Ideation Past Family Social History Past Medical History 1. She has a history of breast cancer. 2. Hodgkin's lymphoma. 3. GERD. 4. Hypertension. 5. Hysterectomy. 6. Hyperthyroidism. 7. Cholecystectomy. 8. Appendectomy. 9. Adenoidectomy. 10. Right lumpectomy. Arthritis: No Heart Rhythm Problems: Yes (Mitral valve prolapse) Cancer: Yes (Breast cancer,Hodgkin Lymphoma) Cardiovascular Problems: No High Cholesterol: No Chemotherapy: Yes (2001 hodgkins lymphoma) Chest Pain: Yes (this admit) Congestive Heart Failure: No Cerebrovascular Accident: No Diabetes: No Diminished Hearing: No Endocrine: Yes Gastrointestinal Disorders: Yes GERD: Yes (GERD) Genitourinary: Yes Hypertension: Yes Musculoskeletal: Yes Neurologic: Yes Psychiatric: No Reproductive: Yes (Total hysterectomy) Respiratory: No Immunizations Current: No Migraines: Yes Radiation Therapy: Yes (1997 breast cx right) Seizures: No Sickle Cell Disease: No Thyroid Disease: Yes (Hyperthyroid) Tetanus Vaccination: > 5 Years Influenza Vaccination: Yes Menopausal: Yes Past Surgical History Abdominal Surgery: Yes (Gall bladder removal) AICD: No Appendectomy: Yes Arteriovenous Shunt: No Body Medical Devices: surgical clamps from breast surgery Cardiac Surgery: No Cholecystectomy: Yes Ear Surgery: No Endocrine Surgery: No Eye Surgery: No Gynecologic Surgery: Yes (Total hysterectomy) Hysterectomy: Yes (TOTAL) Insulin Pump: No Joint Replacement: No Oral Surgery: No Pacemaker: No Thoracic Surgery: No Tonsillectomy: Yes (AND ADENOIDS) Other Surgery: Yes (R Lumpectomy with nodes,tosillectomy) 1. She has a history of breast cancer. 2. Hodgkin's lymphoma. 3. GERD. 4. Hypertension. 5. Hysterectomy. 6. Hyperthyroidism. 7. Cholecystectomy. 8. Appendectomy. 9. Adenoidectomy. 10. Right lumpectomy. Reported Medications Reported Meds & Active Scripts Active Reported Omeprazole 20 Mg Tab 20 Mg PO DAILY Flecainide (Flecainide Acetate) 50 Mg Tab 50 Mg PO BID Tapazole (Methimazole) 5 Mg Tab 2.5 Mg PO DAILY Allergies: Coded Allergies: codeine (Unverified Allergy, Intermediate, NASUSEA/VOMITING, 05/07/17) adhesive (Unverified Adverse Reaction, Unknown, RASH, 05/07/17) Active Ordered Medications Current Medications Morphine Sulfate (Morphine Inj) 4 mg ONCE ONCE IV PUSH ; Start 05/07/17 at 09: 00; Stop 05/07/17 at 09:01; Status DC Iohexol (Omnipaque 350 Inj) 75 ml STK-MED ONCE IVCONTRAST Last administered on 05/07/17 06:22; Start 05/07/17 at 06:22; Stop 05/07/17 at 09:50; Status DC Flecainide Acetate (Tambocor) 50 mg BID PO ; Start 05/07/17 at 21:00 Methimazole (Tapazole) 2.5 mg DAILY PO ; Start 05/08/17 at 09:00 Pantoprazole Sodium (Protonix) 20 mg DAILY PO Last administered on 05/07/17 15 :10; Start 05/07/17 at 14:00 Sodium Chloride 1,000 ml @ 100 mls/hr Q10H IV Last administered on 05/07/17 15:09; Start 05/07/17 at 11:33 Sodium Chloride (NS Flush) 2 ml UNSCH PRN IV FLUSH FLUSH AFTER USING IV ACCESS ; Start 05/07/17 at 11:45 Sodium Chloride (NS Flush) 2 ml BID IV FLUSH ; Start 05/07/17 at 21:00 Acetaminophen (Tylenol) 650 mg Q4H PRN PO TEMP > 100.4; Start 05/07/17 at 11:45 Ondansetron HCl (Zofran Inj) 4 mg Q6H PRN IVP NAUSEA OR VOMITING; Start at 11:45 Prochlorperazine (Compazine Supp) 25 mg Q12H PRN RECTAL NAUSEA OR VOMITING; Start 05/07/17 at 11:45 Zolpidem Tartrate (Ambien) 5 mg HS PRN PO INSOMNIA; Start 05/07/17 at 11:45 Enoxaparin Sodium (Lovenox Inj) 40 mg Q24H SQ Last administered on 05/07/17t 15 :10; Start 05/07/17 at 14:00 Acetaminophen (Tylenol) 650 mg Q6H PRN PO PAIN SCALE 1 TO 2; Start 05/07/17 at 11:45 Morphine Sulfate (Morphine Inj) 2 mg Q3H PRN IV Pain 3-5; if unable to take PO ; Start 05/07/17 at 11:45 Morphine Sulfate (Morphine Inj) 4 mg Q3H PRN IV Pain 6-10;if unable to take PO ; Start 05/07/17 at 11:45 Morphine Sulfate (Morphine Inj) 4 mg Q3H PRN IV BREAKTHROUGH PAIN; Start at 11:45 Tramadol HCl (Ultram) 50 mg Q4H PRN PO PAIN SCALE 3 TO 5; Start 05/07/17 at 11: 45 Tramadol HCl (Ultram) 100 mg Q4H PRN PO PAIN SCALE 6 TO 10; Start 05/07/17 at 11:45 Naloxone HCl (Narcan Inj) 0.4 mg UNSCH PRN IV SEE LABEL COMMENTS; Start at 11:45 Senna/Docusate Sodium (Anika-Colace) 1 tab BID PO ; Start 05/07/17 at 21:00 Magnesium Hydroxide (Milk Of Magnesia Liq) 30 ml Q12H PRN PO MILD - MODERATE CONSTIPATION; Start 05/07/17 at 11:45 Sennosides (Senokot) 17.2 mg Q12H PRN PO MODERATE - SEVERE CONSTIPATION; Start 05/07/17 at 11:45 Bisacodyl (Dulcolax Supp) 10 mg DAILY PRN RECTAL SEVERE CONSITIPATION; Start at 11:45 Lactulose (Lactulose Liq) 30 ml DAILY PRN PO SEVERE CONSITIPATION; Start at 11:45 Sodium Chloride (NS Flush) 2 ml BID IV FLUSH ; Start 05/07/17 at 21:00; Status UNV Sodium Chloride (NS Flush) 2 ml UNSCH PRN IV FLUSH FLUSH AFTER USING IV ACCESS ; Start 05/07/17 at 11:45; Status UNV Aspirin (Aspirin) 325 mg DAILY PO ; Start 05/08/17 at 09:00 Nitroglycerin (Nitrostat Sl) 0.4 mg Q5M PRN SL ANGINA; Start 05/07/17 at 11:45 Miscellaneous (Pill Splitter) 1 ea UNSCH PRN OTHER SEE LABEL COMMENTS; Start at 13:30 Family History Some hypertension in the family there is cancers Social History Denies any tobacco alcohol or illicits Physical Exam Vital Signs Vital Signs Date Time Temp Pulse Resp B/P (MAP) Pulse Ox O2 Delivery O2 Flow Rate FiO2 05/07/17 15:57 98.1 74 19 100/63 (75) 96 05/07/17 15:19 05/07/17 14:57 79 18 118/73 (88) 98 Room Air 05/07/17 12:10 74 20 109/73 (85) 98 Room Air 05/07/17 11:53 98 21 05/07/17 09:33 74 16 98/63 (75) 99 Nasal Cannula 2.00 05/07/17 07:24 73 16 115/69 (84) 99 Nasal Cannula 2.00 05/07/17 07:00 100 Nasal Cannula 2.00 05/07/17 06:24 98.0 84 16 128/77 (94) 98 Room Air Physical Exam GENERAL: This is a well-nourished, well-developed patient, in no apparent distress. SKIN: No rashes, ecchymoses or lesions. Cool and dry. HEAD: Atraumatic. Normocephalic. No temporal or scalp tenderness. EYES: Pupils equal round and reactive. Extraocular motions intact. No scleral icterus. No injection or drainage. ENT: Nose without bleeding, purulent drainage or septal hematoma. Throat without erythema, tonsillar hypertrophy or exudate. Uvula midline. Airway patent. Tongue is midline NECK: Trachea midline. No JVD or lymphadenopathy. Supple, nontender, no meningeal signs. CARDIOVASCULAR: Regular rate and rhythm without murmurs, gallops, or rubs. S1- S2 no S3 or S4 no heave or thrill or rub or gallop RESPIRATORY: Clear to auscultation. Breath sounds equal bilaterally. No wheezes , rales, or rhonchi. GASTROINTESTINAL: Abdomen soft, non-tender, nondistended. No hepato-splenomegaly , or palpable masses. No guarding. MUSCULOSKELETAL: Extremities without clubbing, cyanosis, or edema. No joint tenderness, effusion, or edema noted. No calf tenderness. Negative Homans sign bilaterally. NEUROLOGICAL: Awake and alert. Cranial nerves II through XII intact. Motor and sensory grossly within normal limits. Five out of 5 muscle strength in all muscle groups. Normal speech. Insight and judgment are good Mood and behavior appropriate Laboratory Laboratory Tests Test 05/07/17 07:15 05/07/17 12:00 White Blood Count 6.2 Red Blood Count 4.67 Hemoglobin 13.6 Hematocrit 40.4 Mean Corpuscular Volume 86.5 Mean Corpuscular Hemoglobin 29.0 Mean Corpuscular Hemoglobin Concent 33.6 Red Cell Distribution Width 13.1 Platelet Count 182 Mean Platelet Volume 9.3 Neutrophils (%) (Auto) 51.6 Lymphocytes (%) (Auto) 37.8 Monocytes (%) (Auto) 7.1 Eosinophils (%) (Auto) 3.3 Basophils (%) (Auto) 0.2 Neutrophils # (Auto) 3.2 Lymphocytes # (Auto) 2.4 Monocytes # (Auto) 0.4 Eosinophils # (Auto) 0.2 Basophils # (Auto) 0.0 CBC Comment DIFF FINAL Differential Comment Blood Urea Nitrogen 13 Creatinine 0.71 Random Glucose 84 Calcium Level 8.6 Sodium Level 138 Potassium Level 3.7 Chloride Level 104 Carbon Dioxide Level 25.8 Anion Gap 8 Estimat Glomerular Filtration Rate 85 Total Creatine Kinase 52 42 Troponin I LESS THAN 0.02 LESS THAN 0.02 Result Diagram: 05/07/1771405/07/17714 Caprini VTE Risk Assessment Caprini VTE Risk Assessment: Mod/High Risk (score >= 2) Caprini Risk Assessment Model Point Value = 1 Point Value = 2 Point Value = 3 Point Value = 5 Age 41-60 Minor surgery BMI > 25 kg/m2 Swollen legs Varicose veins or History of unexplained or recurrent spontaneous Oral contraceptives or hormone replacement Sepsis (< 1 month) Serious lung disease, including pneumonia (< 1 month) Abnormal pulmonary function Acute myocardial infarction Congestive heart failure (< 1 month) History of inflammatory bowel disease Medical patient at bed rest Age 61-74 Arthroscopic surgery Major open surgery (> 45 min) Laparoscopic surgery (> 45 min) Malignancy Confined to bed (> 72 hours) Immobilizing plaster cast Central venous access Age >= 75 History of VTE Family history of VTE Factor V Leiden Prothrombin [id number] Lupus anticoagulant Anticardiolipin antibodies Elevated serum homocysteine Heparin-induced thrombocytopenia Other congenital or acquired thrombophilia Stroke (< 1 month) Elective arthroplasty Hip, pelvis, or leg fracture Acute spinal cord injury (< 1 month) Prophylaxis Regimen Total Risk Factor Score Risk Level Prophylaxis Regimen 0-1 Low Early ambulation 2 Moderate Order ONE of the following: *Sequential Compression Device (SCD) *Heparin 5000 units SQ BID 3-4 Higher Order ONE of the following medications: *Heparin 5000 units SQ TID *Enoxaparin/Lovenox 40 mg SQ daily (WT < 150 kg, CrCl > 30 mL/min) *Enoxaparin/Lovenox 30 mg SQ daily (WT < 150 kg, CrCl > 10-29 mL/min) *Enoxaparin/Lovenox 30 mg SQ BID (WT < 150 kg, CrCl > 30 mL/min) AND/OR *Sequential Compression Device (SCD) 5 or more Highest Order ONE of the following medications: *Heparin 5000 units SQ TID (Preferred with Epidurals) *Enoxaparin/Lovenox 40 mg SQ daily (WT < 150 kg, CrCl > 30 mL/min) *Enoxaparin/Lovenox 30 mg SQ daily (WT < 150 kg, CrCl > 10-29 mL/min) *Enoxaparin/Lovenox 30 mg SQ BID (WT < 150 kg, CrCl > 30 mL/min) AND *Sequential Compression Device (SCD) Assessment and Plan Problem List: (1) Near syncope ICD Code: R55 - Syncope and collapse Status: Acute (2) Vertigo, benign positional ICD Code: H81.10 - Benign paroxysmal vertigo, unspecified ear (3) Personal history of cardiac arrhythmia ICD Code: Z86.79 - Personal history of other diseases of the circulatory system Status: Acute (4) Atypical chest pain ICD Code: R07.89 - Other chest pain Status: Acute (5) GERD (gastroesophageal reflux disease) ICD Code: K21.9 - Gastro-esophageal reflux disease without esophagitis Status: Chronic (6) Hyperthyroidism ICD Code: E05.90 - Thyrotoxicosis, unspecified without thyrotoxic crisis or storm Status: Chronic (7) Headache ICD Code: R51 - Headache Status: Acute (8) Chest pain ICD Code: R07.9 - Chest pain, unspecified Status: Acute Assessment and Plan 1. Unstable angina. Atypical chest pain trend troponins Lovenox and labs 2. [place] [employer] class IV angina. 3. History of V-tach. 4. History of lymphoma. Stable 5. History of breast cancer. Stable 6. Suspect she has probably had radiation to the chest. Has history of hyperthyroidism on current medications resume that History of GERD on PPI The V. tach flecainide Patient has history of vertigo. Which scares her to lay flat. Patient was scheduled to undergo a cardiac catheterization tomorrow as long as she agrees. Will defer any other decisions after that. Code Status Full code Discussed Condition With ER physician as well as patient and RN Problem Qualifiers (1) Chest pain: Qualified Codes: R07.9 - Chest pain, unspecified Eddie Rao DO May 07, 2017 16:42
[2017-05-07 18:51] LABS: CREATINE KINASE 39 U/L (26-192)
[2017-05-07] MEDS ORDERED: SODIUM CHLORIDE 0.9% FLUSH 10 ML FLUSH IV FLUSH SCH (21:00)
[2017-05-07] MEDS: SODIUM CHLORIDE 0.9% FLUSH 10 ML FLUSH IV FLUSH SCH (21:00)
[2017-05-07] MEDS: DOCUSATE SODIUM 50 MG/SENNA 8.6 MG TAB PO SCH (21:22)
[2017-05-07] MEDS: FLECAINIDE ACETATE 100 MG TAB PO SCH (21:22)
[2017-05-07 22:43] LABS: BACTERIA, URINE RARE /hpf; BLOOD, URINE NEG (NEG); COMMENT (UR) CULTURE INDICATED; CULTURE IF INDICATED CULTURE INDICATED; GLUCOSE,URINE NEG (NEG); KETONE, URINE NEG (NEG); NITRITE,URINE NEG (NEG); SQUAMOUS EPITHELIAL CELL URINE 7 /hpf (0-5); TRANSITIONAL EPI CELLS, URINE 2 /hpf; URINE COLOR YELLOW (YELLW/STRAW)
[2017-05-08] VITALS: PULSE 72
[2017-05-08 00:54] LABS: MAGNESIUM 2.2 MG/DL (1.5-2.5)
[2017-05-08 01:01] LABS: CREATINE KINASE 43 U/L (26-192)
[2017-05-08 03:31] VITALS: BP 121/88; PULSE 80; RESP 18; TEMP 99; O2SAT 96
[2017-05-08 04:00] VITALS: PULSE 72
[2017-05-08] MEDS: SODIUM CHLOR 0.9% 1000 ML INJ 1,000 ML IV SCH (06:30)
[2017-05-08 07:45] LABS: PROTHROMBIN TIME - PATIENT 10.7 SEC (9.8-11.6)
[2017-05-08 07:49] LABS: AUTOMATED NEUTROPHIL # 2.5 TH/MM3 (1.8-7.7); BASOPHIL % 0.3 % (0.0-2.0); EOSINOPHIL # 0.1 TH/MM3 (0-0.4); HEMATOCRIT 36.9 % (35.0-46.0); HEMO FLAGS DIFF FINAL; LYMPH % 38.8 % (9.0-44.0); LYMPHOCYTE # 1.9 TH/MM3 (1.0-4.8); MEAN CORPUSCULAR HEMOGLOBIN 28.6 PG (27.0-34.0); MEAN CORPUSCULAR HGB CONC 33.3 % (32.0-36.0); MONO % 6.8 % (0.0-8.0); NEUT % 52.1 % (16.0-70.0); PLATELET COUNT 173 TH/MM3 (150-450); RED BLOOD COUNT 4.29 MIL/MM3 (4.00-5.30); RED CELL DISTRIBUTION WIDTH 12.9 % (11.6-17.2); WHITE BLOOD COUNT 4.8 TH/MM3 (4.0-11.0)
[2017-05-08 07:52] VITALS: BP 113/63; PULSE 74; RESP 20; TEMP 98.2; O2SAT 95
[2017-05-08 08:01] LABS: ALT (GPT) 27 U/L (10-53); ANION GAP 7 MEQ/L (5-15); AST (GOT) 24 U/L (15-37); BICARBONATE 25.7 MEQ/L (21.0-32.0); BLOOD UREA NITROGEN 13 MG/DL (7-18); CHLORIDE 109 MEQ/L (98-107); GLOMERULAR FILTRATION RATE 85 ML/MIN (>89); MAGNESIUM 2.1 MG/DL (1.5-2.5); POTASSIUM 3.8 MEQ/L (3.5-5.1); SODIUM (NA) 142 MEQ/L (136-145)
[2017-05-08 08:10] LABS: ALKALINE PHOSPHATASE 82 U/L (45-117); FREE T4 1.19 NG/DL (0.76-1.46); HDL CHOLESTEROL 36.9 MG/DL (40.0-60.0); LDL CHOLESTEROL 104 MG/DL (0-99); TOTAL BILIRUBIN ADULT 0.5 MG/DL (0.2-1.0)
[2017-05-08] MEDS: FLECAINIDE ACETATE 100 MG TAB PO SCH (09:00)
[2017-05-08] MEDS ORDERED: METHIMAZOLE 5 MG TAB PO SCH (09:00)
[2017-05-08] MEDS ORDERED: ASPIRIN 325 MG TAB PO SCH (09:00)
[2017-05-08] MEDS: SODIUM CHLORIDE 0.9% FLUSH 10 ML FLUSH IV FLUSH SCH (09:00)
[2017-05-08] MEDS: DOCUSATE SODIUM 50 MG/SENNA 8.6 MG TAB PO SCH (09:00)
[2017-05-08] MEDS: PANTOPRAZOLE SOD 20 MG DELAYED RELEASE TAB PO SCH (09:52)
[2017-05-08] MEDS ORDERED: HEPARIN-NS/PF INJ 1,000 ML ONE (11:17)
--- NOTE | 2017-05-08 12:06 | CATHPROC ---
[facility] Report Study Information Study Number Admission Scheduled Start Study Start [id number] May 07 2017 11:28AM 05/08/2017 May 08 2017 10:54AM [facility] Cardiac Catheterization Admit Source Facility Department Other [facility] Physician and Clinical Staff Initial Charli Brooks Refrigerator Tester Renuka Wetzel,RN Recorder Renuka Shelyb,RT(R) Scrub Christian Kemp RCIS(BS) Procedures Performed Procedure Location (Site) Vessel Name Coronary Angiograms LCA Left Coronary Coronary Angiograms RCA Right Coronary L Heart Cath Wire insertion Fem Art (right) Femoral Art Equipment Time Scientist Electronics Description Size Mfg Part Number Used/Scraped TRANSDUCER, TRUWAVE [id number] 11:17 COBB DUCKWORTH * Used W/STOCKCOCK *[id number] *[id number] *[id number] 11:17 MEDLINE INDUSTRIES PACK, CCL CUSTOM * Used *[id number] 11:17 AM Analytics PACER PEN, SKIN DUAL W/ RULER * Used *[id number] 11:17 Life360 WIRE, 3MMJ .035 180CM 180CM Used *[id number] 11:17 NAMIC MANIFOLD, 4 PORT * Used *[id number] 11:17 NYCOMED OMNIPAQUE, 350 MG, 150ML 150ML [id number] 11:17 ARELLANO MEDICAL BLANKET,WARM AIR CCL * Used *[id number] 11:17 TERUMO MEDICAL SHEATH, FR4 TERUMO (10CM) FR 4 Used *[id number] History: Current Medications Medication Dosage/Unit Route Frequency Last Date/Time Taken ASA LOVENOX Prilosec History: Allergies Allergy Reaction Adhesives RASH codeine NASUSEA/VOMITING adhesive RASH History: Risk Factors Family History of Hypertension Dyslipidemia Previous [place] Previous Heart Failure Premature CAD Yes Yes No No No Prior Valve Prior PCI Prior CABG Surgery No No No Cerebrovascular Peripheral Artery Chronic Lung On Dialysis Diabetes Disease Disease Disease No No No No No History: Symptoms/Diagnosis Selection Items Angina-unstable Chest pain History: Stress Tests Stress or Imaging Studies Performed No History: Arrhythmias Selection Items Non-sustained VT History: Other Disease Selection Items Cancer Gerd HTN History: Other Current Smoker No Labs Hgb (g/dl) Hct (%) RBC (MIL/MM3) WBC (l/cumm) Platelets (thousands) 11.60-17.00 35.00-51.00 4.00-5.90 4.00-11.00 150.00-450.00 13.6 40.4 4.6 6.2 182 Glucose (mg/dl) BUN (mg/dl) Creatinine (mg/dl) BUN:Creatinine (1:x) 74.00-106.00 7.00-18.00 0.50-1.30 10.00-20.00 84 13 0.7 18.6 Na (meq/l) K (meq/l) Cl (meq/l) CO2 (mmol/L) Ca (mg/dl) 136.00-145.00 3.50-5.10 98.00-107.00 21.00-32.00 8.50-10.10 138 3.8 104 25.8 8.6 PT (sec) INR (PTT:PT) 9.80-11.60 0.90-1.10 10.7 1 Troponin I (ng/ml) CPK (u/l) CPK-MB (ng/ML) 0.02-0.05 26.00-308.00 0.50-3.60 0.02 43 Not Drawn Medication Medication Total Dose (Bolus/Oral) Medication Total Dosage/Unit 1% XYLOCAINE 20 mL Medications (Bolus/Oral) Medication Time Given Dosage/Unit Administered By Reason 1% XYLOCAINE 05/08/2017 11:48:43 AM 20 mL Charli Raymond 20 mL 1% XYLOCAINE given in lab by Charli Raymond in Right Groin via Subcutaneous. Ordered by Charli Henley. Medication (Drip) Medication Time Given Dosage/Unit Concentration/Unit Diluent (ml) Solution IV Solutions 05/08/2017 11:14:55 AM 0 mL (IV) 500 NaCl .9 Patient arrived on IV Solutions given by Charli Raymond in Left Antecubital via Peripheral IV. Pump /Drip Flow = 100 ml/hr using NaCl .9. Ordered by Charli Raymond. Initial Case Assessment Cardiovascular HR Rhythm NIBP Chest Pain 84 sr 147/86 0 Edema Present Skin color Skin None Normal Warm Dry Circulatory - Right Pulses Dorsalis Pedis Femoral 2 3 Scale (0,1,2,3,4,d) Circulatory - Left Pulses Dorsalis Pedis Femoral 2 3 Scale (0,1,2,3,4,d) Neurological State Oriented to time-place- Alert Moves all extremities person Respiration - General Respiration Rate SpO2 (%) O2 (lpm) (B/min) 18 99 0 Final Case Assessment Cardiovascular HR Rhythm NIBP Chest Pain 85 reg 150/92 0 Edema Present Skin color Skin None Normal Warm Circulatory - Right Pulses Dorsalis Pedis Femoral 2 3 Scale (0,1,2,3,4,d) Circulatory - Left Pulses Dorsalis Pedis Femoral 2 3 Scale (0,1,2,3,4,d) Circulatory - Lower Extremities Color Lower Right Color Lower Left Normal Normal Neurological State Oriented to time-place- Alert Moves all extremities person Respiration - General Respiration Rate SpO2 (%) (B/min) 15 98 Chronological Log Time Study Chronological Log 11:14:36 Patient arrived via Bed. 11:14:37 Patient Name, D.O.B, / Armband Verified By R.N. 11:14:38 Consent signed by the physician and the patient and verified by the [employer] staff. 11:14:38 Pre-op and post- op instructions given; patient acknowledges understanding of instructions. 11:14:39 Verbal Stimulation=2 Physical Stimulation=2 Airway=2 Respiration=2 TOTAL=8. (0=absent, 1=li mited, 2=present) 11:14:47 Patient has been NPO for Less than 6Hrs. 11:14:48 Skin Breakdown-none present per patient. 11:14:49 Patient Warmer Placed on the Table. 11:14:54 A # 20 IV was noted in the Antecubital (left). Grade = 0 Patient arrived on IV Solutions given by Charli Raymond in Left Antecubital via Peripheral IV . Pump/Drip Flow = 100 11:14:55 ml/hr using NaCl .9. Ordered by Charli Raymond. 11:14:56 History and physical on the chart or being dictated. Assessment: Initial Case, HR=84 BPM, Rhythm=sr, VGRK=847/86 mmhg, Chest Pain=0, Edema=None, Col or=Normal, Skin = Warm, Dry Right Pulses: Antonio Ped=2, Femoral=3 11:14:57 Left Pulses: Antonio Ped=2, Femoral=3 Neurological: State=Alert, Ox3, [place] Respiration: Resp=18 B/min, SpO2=99 %, O2=0 lpm Vitals capture started with the following parameters, Patient=Adult, Interval=5 min, Initial Pr ojkcqj=682 mmHg, 11:18:25 Deflation Rate=5 mmHg, Cuff placed on Left Leg 11:18:57 HR=80 bpm, IWWW=504/86 mmhg, SpO2=99.0 %, Resp=13 B/min, Gan=2 11:20:50 Right groin prepped with 2% chlorhexidine, and with a 3 min. waiting time. 11:23:54 HR=92 bpm, BLIU=449/97 mmhg, SpO2=98.0 %, Resp=19 B/min, Gan=2 11:28:50 MD paged 11:28:59 HR=87 bpm, LUID=028/77 mmhg, SpO2=99.0 %, Resp=24 B/min, Pain=0, Wilner=10, Gan=2 11:29:33 Pressure channel 1 zeroed. 11:32:06 Reference ECG taken 11:33:56 HR=80 bpm, LHLQ=666/89 mmhg, SpO2=98.0 %, Resp=18 B/min, Pain=0, Wilner=10, Gan=2 11:38:55 HR=83 bpm, JEGC=617/92 mmhg, Resp=6 B/min, Pain=0, Wilner=10, Gan=2 11:43:56 HR=79 bpm, RLLB=285/88 mmhg, SpO2=96.0 %, Resp=14 B/min, Pain=0, Wilner=10, Gan=2 11:44:58 MD arrived. Time Out. Correct patient, correct procedure,correct physician, power injector not loaded with contrast with surgical 11:48:11 team present. Time Out Concurred by MD, individual staff in procedure 11:48:41 Case Start 20 mL 1% XYLOCAINE given in lab by Charli Raymond in Right Groin via Subcutaneous. Ordered by Mandi, 11:48:43 Charli. 11:48:55 HR=89 bpm, ZWGJ=794/92 mmhg, SpO2=98.0 %, Resp=19 B/min, Pain=0, Wilner=10, Gan=2 11:54:00 Access site was Right Femoral Artery. 11:54:01 HR=85 bpm, KLQH=109/91 mmhg, SpO2=97.0 %, Resp=13 B/min, Pain=0, Wilner=10, Gan=2 11:54:03 A wire was inserted via Fem Art (right). 11:54:28 A SHEATH, FR4 TERUMO (10CM) FR 4 was advanced into the Fem Art (right) using the Percutaneo us technique. A JR 4.0 INFINITI CATHETER FR 4 was advanced over a wire. OMNIPAQUE, 350 MG, 150ML 150ML was us ed for 11:55:09 injections. Recorded Pressure: LV, HR=86, Condition=Condition 1 11:55:54 (Left Ventricle) LV 158/2/8 Recorded Pressure: LV, Ao, HR=88, Condition=Condition 1 11:56:16 (Left Ventricle) LV 152/3/7, (Aorta) Ao 148/81/111 11:56:35 The RCA was injected and visualized at various angles. OMNIPAQUE, 350 MG, 150ML 150ML used . Recorded Pressure: Ao, HR=88, Condition=Condition 1 11:56:44 (Aorta) Ao 146/86/111 11:56:56 Catheter was removed A JL 4.0 INFINITI CATHETER FR 4 was advanced over a wire. OMNIPAQUE, 350 MG, 150ML 150ML was us ed for 11:57:11 injections. 11:58:18 The LCA was injected and visualized at various angles. OMNIPAQUE, 350 MG, 150ML 150ML used . 11:59:02 HR=88 bpm, JOKK=317/92 mmhg, SpO2=97.0 %, Resp=16 B/min, Pain=0, Wilner=10, Gan=2 11:59:53 Case End Assessment: Final Case, HR=85 BPM, Rhythm=reg, XLQX=270/92 mmhg, Chest Pain=0, Edema=None, Col or=Normal, Skin = Warm Right Pulses: Antonio Ped=2, Femoral=3 Left Pulses: Antonio Ped=2, Femoral=3 12:01:48 Lower Right Extremities: Color=Normal Lower Left Extremities: Color=Normal Neurological: State=Alert, Ox3, [place] Respiration: Resp=15 B/min, SpO2=98 % 12:02:20 Catheter(s) removed without difficulty 12:02:23 Sheath(s) left in place, will be removed in Holding Area 12:02:26 Sterile dressing applied to site 12:02:26 No case complications noted. 12:02:28 Cine recording checked. 12:02:30 Bedside Report will be given. 12:02:33 Contrast Scanned 12:02:35 A Left Heart Cath was performed. 12:02:36 Patient moved to stretcher 12:02:42 Clinical correlaton risk stratification. 12:04:48 HR=79 bpm, TRPK=008/84 mmhg, SpO2=96.0 %, Resp=14 B/min, Pain=0, Wilner=10, Gan=2 End Study - Contrast Media Used In Study Contrast Total Opened (mL) Total Used (mL) Total Wasted (mL) Omnipaque 40 40 0 End Study - Maximum Contrast Load Max Contrast Load (mL) 550.0 End Study - Radiation Exposure Fluoro Time (minutes) 1.2 End Study - Patient Disposition Complications Transferred To No Outpatient Bed
--- NOTE | 2017-05-08 12:06 | HHI.PR ---
Subjective Remarks Patient seen at 0745hrs. NOT FINISHED. Objective Vitals Vital Signs Date Time Temp Pulse Resp B/P (MAP) Pulse Ox O2 Delivery O2 Flow Rate FiO2 05/08/17 07:52 98.2 74 20 113/63 (80) 95 05/08/17 04:00 72 05/08/17 03:31 99.0 80 18 121/88 (99) 96 05/08/17 00:00 72 05/07/17 23:47 98.5 80 18 106/59 (75) 95 05/07/17 21:53 97.6 80 18 119/71 (87) 96 05/07/17 20:00 90 05/07/17 15:57 98.1 74 19 100/63 (75) 96 05/07/17 15:19 05/07/17 14:57 79 18 118/73 (88) 98 Room Air 05/07/17 12:10 74 20 109/73 (85) 98 Room Air I/O 05/07/17 05/07/17 05/07/17 05/08/17 05/08/17 05/08/17 07:00 15:00 23:00 07:00 15:00 23:00 Intake Total 300 ml 700 ml Balance 300 ml 700 ml Intake Oral 300 ml 100 ml IV Total 600 ml # Voids 1 Result Diagram: 05/08/17 0640 05/08/17 0640 A/P Problem List: (1) Near syncope ICD Code: R55 - Syncope and collapse Status: Acute (2) Vertigo, benign positional ICD Code: H81.10 - Benign paroxysmal vertigo, unspecified ear (3) Personal history of cardiac arrhythmia ICD Code: Z86.79 - Personal history of other diseases of the circulatory system Status: Acute (4) Atypical chest pain ICD Code: R07.89 - Other chest pain Status: Acute (5) GERD (gastroesophageal reflux disease) ICD Code: K21.9 - Gastro-esophageal reflux disease without esophagitis Status: Chronic (6) Hyperthyroidism ICD Code: E05.90 - Thyrotoxicosis, unspecified without thyrotoxic crisis or storm Status: Chronic (7) Headache ICD Code: R51 - Headache Status: Acute (8) Chest pain ICD Code: R07.9 - Chest pain, unspecified Status: Acute Problem Qualifiers (1) Chest pain: Qualified Codes: R07.9 - Chest pain, unspecified Charity Banegas PA-C May 08, 2017 12:05 pm
[2017-05-08] MEDS ORDERED: MISC INFORMATION XX ONE (12:15)
[2017-05-08] MEDS ORDERED: SODIUM CHLORIDE 0.9% FLUSH 10 ML FLUSH PRN (12:15)
--- NOTE | 2017-05-08 12:26 | MA ---
cc: ANTONIETA DOYLE M.D. DATE 05/08/2017 PROCEDURE PERFORMED Left heart catheterization, left ventriculography, coronary angiography. INDICATIONS Unstable angina, [place] [employer] class IV angina, history of V-tach on flecainide followed by Dr. Feldman. No prior cardiac catheterization. Admitted to the ER yesterday due to [place] [employer] Class IV angina. PROCEDURAL STATEMENT The patient was brought to the cardiac catheterization laboratory, prepped and draped in the usual sterile fashion. 10 cc's of 1% lidocaine was used to locally anesthetize the right common femoral artery. A 4[place] sheath placed in the right common femoral artery. A 4[place] JR-4, JL-4 catheter was used to perform left and right coronary angiogram and left ventriculography. FINDINGS LV pressure is 160/3=7, EF of 60%. The right coronary artery is dominant with no significant disease angiographically. The left main coronary artery has no significant disease angiographically. The left circumflex vessel has no significant disease angiographically. The first obtuse marginal vessel is a medium to large size vessel, tortuous and bifurcates distally with no significant obstructive disease. The LAD is transapical. There is no significant obstructive disease. The first diagonal artery is a small vessel with a 20% stenosis in the proximal segment. LAD is transapical. CONCLUSION 1. Angiographically mild one-vessel coronary disease in a right-dominant system as detailed above. 2. Normal LV systolic function with ejection fraction of 65%. 3. History of V-tach. 4. Recommend follow up with Dr. Feldman for further evaluation and management of arrhythmia. 5. MD SONJA Irvin/SANDRA /12:02 PM /12:16 PM
[2017-05-08] MEDS ORDERED: BACITRACIN OINT 0.9 GM PKT TOP ONE (12:30)
[2017-05-08] MEDS ORDERED: ASPI81TA11 PO (13:04)
--- NOTE | 2017-05-08 13:09 | HHI.PR ---
Subjective Remarks Follow up for chest pain. Patient underwent cardiac cath. No significant CAD except mild one vessel disease. Cardiology cleared for discharge. Objective Vitals Vital Signs Date Time Temp Pulse Resp B/P (MAP) Pulse Ox O2 Delivery O2 Flow Rate FiO2 05/08/17 12:19 100 Room Air 05/08/17 07:52 98.2 74 20 113/63 (80) 95 05/08/17 04:00 72 05/08/17 03:31 99.0 80 18 121/88 (99) 96 05/08/17 00:00 72 05/07/17 23:47 98.5 80 18 106/59 (75) 95 05/07/17 21:53 97.6 80 18 119/71 (87) 96 05/07/17 20:00 90 05/07/17 15:57 98.1 74 19 100/63 (75) 96 05/07/17 15:19 05/07/17 14:57 79 18 118/73 (88) 98 Room Air I/O 05/07/17 05/07/17 05/07/17 05/08/17 05/08/17 05/08/17 07:00 15:00 23:00 07:00 15:00 23:00 Intake Total 300 ml 700 ml Balance 300 ml 700 ml Intake Oral 300 ml 100 ml IV Total 600 ml # Voids 1 Result Diagram: 05/08/17 0640 05/08/17 0640 Imaging Last Impressions Chest X-Ray 05/07/17 0644 Signed Impressions: Service Date/Time: Sunday, May 07, 2017 07:01 - CONCLUSION: No acute disease. Cory Lin MD Aorta CTA 05/07/17 0000 Signed Impressions: Service Date/Time: Sunday, May 07, 2017 09:35 - CONCLUSION: 1. Aorta is unremarkable. 2. No acute intrathoracic or intra-abdominal abnormality. 3. Prior cholecystectomy. Dequan Quiroz Jr., MD Objective Remarks GENERAL: AOX3, NAD. SKIN: Warm and dry. HEAD: Normocephalic. EYES: No scleral icterus. No injection or drainage. NECK: Supple, trachea midline. No JVD or lymphadenopathy. CARDIOVASCULAR: Regular rate and rhythm without murmurs, gallops, or rubs. RESPIRATORY: Breath sounds equal bilaterally. No accessory muscle use. GASTROINTESTINAL: Abdomen soft, non-tender, nondistended. MUSCULOSKELETAL: No cyanosis, or edema. BACK: Nontender without obvious deformity. No CVA tenderness. Procedures cardiac cath 05/08/2017 1. Angiographically mild one-vessel coronary disease in a right-dominant system as detailed above. 2. Normal LV systolic function with ejection fraction of 65%. 3. History of V-tach. 4. Recommend follow up with Dr. Feldman for further evaluation and management of arrhythmia. A/P Problem List: (1) Near syncope ICD Code: R55 - Syncope and collapse Status: Acute (2) Vertigo, benign positional ICD Code: H81.10 - Benign paroxysmal vertigo, unspecified ear (3) Personal history of cardiac arrhythmia ICD Code: Z86.79 - Personal history of other diseases of the circulatory system Status: Acute (4) Atypical chest pain ICD Code: R07.89 - Other chest pain Status: Acute (5) GERD (gastroesophageal reflux disease) ICD Code: K21.9 - Gastro-esophageal reflux disease without esophagitis Status: Chronic (6) Hyperthyroidism ICD Code: E05.90 - Thyrotoxicosis, unspecified without thyrotoxic crisis or storm Status: Chronic (7) Headache ICD Code: R51 - Headache Status: Acute (8) Chest pain ICD Code: R07.9 - Chest pain, unspecified Status: Acute Assessment and Plan Ms. Izaguirre is a pleasant 56 year old female with a history of PVC, PACs currently on Flecainide by Dr. Feldman who was admitted to the hospital on 2016 due to chest pain radiating to her back. CTA did not show any evidence of aortic dissection. Patient underwent cardiac cath on 05/08/2017. Cath was largely unremarkable. Patient was cleared for discharge by cardiology. - History of Breast cancer s/p radiation - History of Hodgkin's lymphoma - History of PVC/PAC - Chest pain - substernal with radiation to the back. CTA negative for Aortic dissection. - s/p cath. No significant CAD. - Discussed with patient regarding Aspirin and Lipitor. - Encouraged patient to discuss with Dr. Feldman regarding Flecainide and possibly an EP study in near future. - Will discharge patient. Discharge patient to home Condition on discharge: Improved Heart healthy Diet as tolerated Ad Patsy activity Rx written: - Aspirin 81mg Qday. - Lipitor 20mg QHS. Follow-up with primary care physician within 1-2 weeks and Cardiology (Dr. Feldman ) within one week. Problem Qualifiers (1) Chest pain: Qualified Codes: R07.9 - Chest pain, unspecified Arabella Cazares DO May 08, 2017 13:09
[2017-05-08] MEDS ORDERED: LIPI20TA PO (13:24)
--- NOTE | 2017-05-08 13:40 | EKG ---
Date Performed: 05/07/2017 Time Performed: 11:57:19 PTAGE: 56 years EKG: Sinus rhythm NORMAL ECG Compared to prior tracing no significant change PREVIOUS TRACING DOCTOR: Michaelle Pryor Interpretating Date/Time 05/08/2017 13:38:13
--- NOTE | 2017-05-08 13:41 | EKG ---
Date Performed: 05/07/2017 Time Performed: 17:46:11 PTAGE: 56 years EKG: Sinus rhythm NORMAL ECG Compared to prior tracing no significant change PREVIOUS TRACING : 05/07/2017 11.57 DOCTOR: Michaelle Pryor Interpretating Date/Time 05/08/2017 13:38:24
--- NOTE | 2017-05-08 13:41 | EKG ---
Date Performed: 05/07/2017 Time Performed: 23:40:28 PTAGE: 56 years EKG: Sinus rhythm NONSPECIFIC T-WAVE ABNORMALITY BORDERLINE ECG Compared to prior tracing no significant change PREVIOUS TRACING : 05/07/2017 17.46 DOCTOR: Michaelle Pryor Interpretating Date/Time 05/08/2017 13:38:33
--- NOTE | 2017-05-08 13:54 | OTSOAPIP ---
PATIENT UNDERGOING CARDIAC CATHETER PROCEDURE. Therapist: Greta Leonard OTR/L Signature on file
[2017-05-08 17:22] LABS: HEMOGLOBIN A1b 1.6 %; HEMOGLOBIN Ao 85.5 %; HEMOGLOBIN LA1C 1.8 %; HEMOGLOBIN P3 3.8 %
[2017-05-08] MEDS ORDERED: SODIUM CHLORIDE 0.9% FLUSH 10 ML FLUSH SCH (21:00)
== END 2017-05-08 16:15 | disposition home or self-care (01) ==
LOC: NEPC 06:21 → NEDA 11:28 → NEPHCDU 15:34 → HCIS 05-08 11:36 → OBSVTOIN 05-08 12:07 → INTOOBSV 05-08 12:07
PROVIDERS: ADMIT Hospitalist; ATTEND Hospitalist
DX: I25.110 Atherosclerotic heart disease of native coronary artery with unstable angina pectoris (principal); R55 Syncope and collapse; H81.10 Benign paroxysmal vertigo, unspecified ear; I10 Essential (primary) hypertension; E05.90 Thyrotoxicosis, unspecified without thyrotoxic crisis or storm; I34.1 Nonrheumatic mitral (valve) prolapse; K21.9 Gastro-esophageal reflux disease without esophagitis; Z79.82 Long term (current) use of aspirin; Z79.899 Other long term (current) drug therapy; Z85.71 Personal history of Hodgkin lymphoma; Z86.79 Personal history of other diseases of the circulatory system; Z92.3 Personal history of irradiation; Z85.3 Personal history of malignant neoplasm of breast
CPT/HCPCS: 71010; 71275; 74174; 80048; 80053; 80061; 81001; 82550; 83036; 83735; 84100; 84439; 84443; 84484; 85025; 85610; 87086; 93005; 93454; 96360; 96361; 96372; 99285; C1769; C1893; G0378; J1644; J1650; J7030; Q9967

== ENCOUNTER 2017-05-21 04:43 | Observation (INO) | payer BC ==
[~2017-05-21] VITALS: Ht 180.3 cm; Wt 75.0 kg
[2017-05-21] VITALS (9 sets, daily range): BP systolic 108–119; BP diastolic 58–68; PULSE 75–86; RESP 15–20; TEMP 98.3–98.8; O2SAT 96–97
[~2017-05-21 04:43] MED LIST changes: +ASPI81TA11 PO; +LIPI20TA PO
--- NOTE | 2017-05-21 05:27 | PD ---
HPI Chief Complaint: Cardiac Complaint Time Seen by Provider: 05:13 Travel History International Travel<30 days: No Contact w/Intl Traveler<30days: No Traveled to known affect area: No History of Present Illness HPI The patient is a 56 year old female who presents to the [facility] emergency department with a history of awakening from sound sleep between 1 and 2 AM with the sensation that her heart was beating fast and hard. She reports that she had a sensation of something being in her throat. She reports that she had a pulling sensation down her chest. She reports that her pulse was as high as 104. She reports that she has been diagnosed with PACs and PVCs on a 3 week long playground monitor that was done by her plastics production machine operator, Dr. Raymond. She reports that she also recently underwent cardiac catheterization on May 07 to rule out coronary artery disease. She reports that no significant blockages were noted. The patient reports that she is taking a baby aspirin daily. She reports that she does have a history of hyperthyroid disorder, however she is on methimazole and her last thyroid laboratory study was reportedly normal. She reports that 2 months ago when she continued to have recurrences of palpitation she was started on flecainide by her plastics production machine operator. She reports having associated lightheaded sensation. She reports that she had been on a beta rena, however she was not able to tolerate this well as she normally has a blood pressure that is a systolic in the low 100s. She denies having any chest pain. She denies having any recent fevers, cough, congestion. She denies having any neck pain, shortness of breath, abdominal pain, vomiting, diarrhea, urinary symptoms, or neurologic symptoms. [facility] Past Medical History Narrative Medical The patient's past medical history is significant for right breast cancer status post lumpectomy followed by chemotherapy and radiation therapy, history of non-Hodgkin's lymphoma status post chemotherapy in 2001, history of hyperthyroid disorder, PVCs and PACs, acid reflux, mitral valve prolapse. Arthritis: No Heart Rhythm Problems: Yes (HX OF VTACH) Cancer: Yes (BREAST CANCER 1997, HODGKINS LYMPHOMA 2001) Cardiac Catheterization: Yes (2016) Cardiovascular Problems: Yes (PAC, MITRAL VALVE PROLASPE) High Cholesterol: No Chemotherapy: Yes Chest Pain: Yes (CHEST PAIN) Congestive Heart Failure: No Cerebrovascular Accident: No Diabetes: No Diminished Hearing: No Endocrine: Yes Gastrointestinal Disorders: Yes GERD: Yes (GERD) Genitourinary: Yes Headaches: No Hypertension: No Musculoskeletal: Yes (BAD BACK, LEFT KNEE SURGERY ) Neurologic: No Psychiatric: No Reproductive: Yes (TOTAL HYSTERECTOMY) Respiratory: No Immunizations Current: No Migraines: Yes Radiation Therapy: Yes Seizures: No Sickle Cell Disease: No Thyroid Disease: Yes (HYPERTHYROID) Menopausal: Yes Past Surgical History Narrative Surgical The patient's past surgical history is significant for a right breast lumpectomy , left knee arthroscopy, hysterectomy, cholecystectomy, appendectomy, tonsillectomy. Abdominal Surgery: Yes (Gall bladder removal) AICD: No Appendectomy: Yes Arteriovenous Shunt: No Body Medical Devices: surgical clamps from breast surgery Cardiac Surgery: No Cholecystectomy: Yes Ear Surgery: No Endocrine Surgery: No Eye Surgery: No Gynecologic Surgery: Yes (Total hysterectomy) Hysterectomy: Yes (TOTAL) Insulin Pump: No Joint Replacement: No Oral Surgery: No Pacemaker: No Thoracic Surgery: No Tonsillectomy: Yes (AND ADENOIDS) Other Surgery: Yes (R Lumpectomy with nodes,tosillectomy) Social History Alcohol Use: No Tobacco Use: No Substance Use: No Allergies-Medications (Allergen,Severity, Reaction): Coded Allergies: codeine (Unverified Allergy, Intermediate, NASUSEA/VOMITING, 05/21/17) adhesive (Unverified Adverse Reaction, Unknown, RASH, 05/21/17) Reported Meds & Prescriptions Reported Meds & Active Scripts Active Aspirin EC (Aspirin) 81 Mg Tabdr 81 Mg PO DAILY 90 Days Reported Omeprazole 20 Mg Tab 20 Mg PO DAILY Flecainide (Flecainide Acetate) 50 Mg Tab 50 Mg PO BID Tapazole (Methimazole) 5 Mg Tab 2.5 Mg PO DAILY Review of Systems Except as stated in HPI: all other systems reviewed are Neg General / Constitutional: No: Fever Eyes: No: Visual changes HENT: No: Headaches Cardiovascular: Positive: Palpitations, Tachycardia, No: Chest Pain or Discomfort Respiratory: No: Shortness of Breath Gastrointestinal: No: Abdominal Pain Genitourinary: No: Dysuria Musculoskeletal: No: Pain Skin: No Rash Neurologic: No: Weakness Psychiatric: No: Depression Endocrine: No: Polydipsia Hematologic/Lymphatic: No: Easy Bruising Physical Exam Narrative General: The patient is a well-developed well-nourished female in no acute distress. Head and Neck exam: Head is normocephalic atraumatic. Eyes: EOMI, pupils are equal round and reactive to light. Nose: Midline septum with pink mucous membranes Mouth: Dentition unremarkable. Moist mucus membranes. Posterior oropharynx is not erythematous. No tonsillar hypertrophy. Uvula midline. Airway patent. Neck: No palpable lymphadenopathy. No nuchal rigidity. No thyromegaly. Cardiovascular: Regular rate and rhythm without murmurs, gallops, or rubs. No pulse deficit to the extremities and simultaneous auscultation and palpation of her radial artery. Lungs: Clear to auscultation bilaterally. No wheezes, rhonchi, or rales. Abdomen: Soft, without tenderness to palpation in all 4 quadrants of the abdomen. No guarding, rebound, or rigidity. Normal bowel sounds are audible. No tenderness on palpation of McBurney's point. Extremities: No clubbing, cyanosis, or edema. 2+ pulses in all 4 extremities. No calf tenderness on palpation. Back: No costovertebral angle tenderness to palpation. Neurologic Exam: Grossly nonfocal. Skin Exam: No rash noted. Intact skin that is warm and dry. Data Data Last Documented VS Vital Signs Date Time Temp Pulse Resp B/P (MAP) Pulse Ox O2 Delivery O2 Flow Rate FiO2 05/21/17 07:12 83 15 118/68 (85) 96 Room Air 05/21/17 05:22 2.00 Orders Orders Electrocardiogram (05/21/17 05:18) Complete Blood Count With Diff (05/21/17 05:18) Comprehensive Metabolic Panel (05/21/17 05:18) Creatine Kinase (Cpk) (05/21/17 05:18) Ckmb (Isoenzyme) Profile (05/21/17 05:18) Troponin I (05/21/17 05:18) B-Type Natriuretic Peptide (05/21/17 05:18) Prothrombin Time / Inr (Pt) (05/21/17 05:18) Act Partial Throm Time (Ptt) (05/21/17 05:18) Lipase (05/21/17 05:18) Urinalysis - C+S If Indicated (05/21/17 05:18) Magnesium (Mg) (05/21/17 05:18) Thyroid Stimulating Hormone (05/21/17 05:18) Chest, Single Ap (05/21/17 05:18) Iv Access Insert/Monitor (05/21/17 05:18) Ecg Monitoring (05/21/17 05:18) Oximetry (05/21/17 05:18) Sodium Chlorid 0.9% 500 Ml Inj (Ns 500 M (05/21/17 05:30) Consult Cardiology (05/21/17 ) Admit Order (Ed Use Only) (05/21/17 07:22) Labs Laboratory Tests Test 05/21/17 05:31 White Blood Count 5.6 TH/MM3 Red Blood Count 4.29 MIL/MM3 Hemoglobin 12.3 GM/DL Hematocrit 36.9 % Mean Corpuscular Volume 86.0 FL Mean Corpuscular Hemoglobin 28.6 PG Mean Corpuscular Hemoglobin Concent 33.3 % Red Cell Distribution Width 13.1 % Platelet Count 184 TH/MM3 Mean Platelet Volume 9.6 FL Neutrophils (%) (Auto) 45.2 % Lymphocytes (%) (Auto) 42.0 % Monocytes (%) (Auto) 8.4 % Eosinophils (%) (Auto) 4.1 % Basophils (%) (Auto) 0.3 % Neutrophils # (Auto) 2.5 TH/MM3 Lymphocytes # (Auto) 2.3 TH/MM3 Monocytes # (Auto) 0.5 TH/MM3 Eosinophils # (Auto) 0.2 TH/MM3 Basophils # (Auto) 0.0 TH/MM3 CBC Comment DIFF FINAL Differential Comment Prothrombin Time 10.2 SEC Prothromb Time International Ratio 0.9 RATIO Activated Partial Thromboplast Time 27.9 SEC Blood Urea Nitrogen 20 MG/DL Creatinine 0.88 MG/DL Random Glucose 98 MG/DL Total Protein 7.6 GM/DL Albumin 3.7 GM/DL Calcium Level 8.8 MG/DL Magnesium Level 2.1 MG/DL Alkaline Phosphatase 93 U/L Aspartate Amino Transf (AST/SGOT) 23 U/L Alanine Aminotransferase (ALT/SGPT) 30 U/L Total Bilirubin 0.3 MG/DL Sodium Level 140 MEQ/L Potassium Level 3.5 MEQ/L Chloride Level 106 MEQ/L Carbon Dioxide Level 26.4 MEQ/L Anion Gap 8 MEQ/L Estimat Glomerular Filtration Rate 66 ML/MIN Total Creatine Kinase 87 U/L Troponin I LESS THAN 0.02 NG/ML B-Type Natriuretic Peptide 4 PG/ML Lipase 294 U/L Thyroid Stimulating Hormone 3rd Gen 3.290 uIU/ML MDM Medical Decision Making Medical Screen Exam Complete: Yes Emergency Medical Condition: Yes Medical Record Reviewed: Yes Interpretation(s) Last Impressions Chest X-Ray 05/21/17 0518 Signed Impressions: Service Date/Time: Sunday, May 21, 2017 05:52 - CONCLUSION: No evidence of acute cardiopulmonary disease. Michael Escalona MD Differential Diagnosis Cardiac arrhythmia such as ventricular tachycardia, versus SVT, versus atrial fibrillation, versus atrial flutter Narrative Course During the course of the patients emergency department visit, the patients history, examination, and differential diagnosis were reviewed with the patient. The patient had IV access obtained and blood work sent for analysis. The patient is on a playground monitor with oximetry and blood pressure monitoring. An ECG was done. The patient's ECG shows a sinus rhythm, heart rate is 82, QRS duration is 91 ms, QTC [address] segment elevation or depression. The patient was initially provided normal saline a 5 normal liter bolus times one. The patients laboratory studies were reviewed and remarkable for a magnesium within normal limits, TSH within normal limits. CBC, CMP unremarkable. Her initial of cardiac enzymes are within normal limits, BNP within normal limits. Radiology studies were reviewed and remarkable for a chest x-ray that shows no acute cardiopulmonary disease. According to Dr. Raymond's previous notes, the patient has had a history of ventricular tachycardia. The patient's case was discussed with Dr. Raymond, the patient's plastics production machine operator at 6:55 AM. He did request that the patient be admitted to the hospitalist service and not a consultation be placed to him. The patients results were discussed with the patient, including the plan of care. I explained that further testing and/ or monitoring is indicated based on the patients history, examination, and/ or laboratory findings. Therefore, I recommended admission for additional evaluation. The patient expressed understanding and was agreeable with this plan. The patient was admitted to the hospital in stable condition and [facility] Physician Communication Physician Communication The patient's case was discussed with Dr. Raymond as mentioned above in the ED course. The patient's case was discussed with Dr. Castro who did agree to [facility] and [facility]. Diagnosis Primary Impression: Palpitations Additional Impression: History of ventricular tachycardia Admitting Information Admitting Physician Requests: Observation Nia Hassan MD May 21, 2017 05:27
[2017-05-21] MEDS ORDERED: SODIUM CHLORID 0.9% 500 ML INJ 500 ML IV ONE (05:30)
[2017-05-21 05:49] LABS: AUTOMATED NEUTROPHIL # 2.5 TH/MM3 (1.8-7.7); BASOPHIL % 0.3 % (0.0-2.0); EOSINOPHIL # 0.2 TH/MM3 (0-0.4); EOSINOPHIL % 4.1 % (0.0-4.0); HEMATOCRIT 36.9 % (35.0-46.0); HEMO FLAGS DIFF FINAL; LYMPHOCYTE # 2.3 TH/MM3 (1.0-4.8); MEAN CORPUSCULAR HEMOGLOBIN 28.6 PG (27.0-34.0); MEAN CORPUSCULAR HGB CONC 33.3 % (32.0-36.0); MONO % 8.4 % (0.0-8.0); NEUT % 45.2 % (16.0-70.0); PLATELET COUNT 184 TH/MM3 (150-450); RED BLOOD COUNT 4.29 MIL/MM3 (4.00-5.30); RED CELL DISTRIBUTION WIDTH 13.1 % (11.6-17.2); WHITE BLOOD COUNT 5.6 TH/MM3 (4.0-11.0)
--- NOTE | 2017-05-21 05:56 | RADRPT ---
EXAM DATE/TIME: 05/21/2017 05:52 [facility] COMPARISON: CHEST SINGLE AP, May 07, 2017, 7:01. INDICATIONS : Shortness of breath. MEDICAL HISTORY : None. SURGICAL HISTORY : Heart cath ENCOUNTER: Initial ACUITY: 1 day PAIN SCORE: 0/10 LOCATION: Bilateral chest FINDINGS: A single view of the chest demonstrates the lungs to be symmetrically aerated without evidence of mas s, infiltrate or effusion. Mild scarring again seen at the apices. The cardiomediastinal contours are unremarkable. Osseous structures are intact. CONCLUSION: No evidence of acute cardiopulmonary disease. Michael Escalona MD on May 21, 2017 at 5:54 Board Certified Radiologist. This report was verified electronically.
[2017-05-21 05:57] LABS: APTT (PATIENT) 27.9 SEC (24.3-30.1); INTERNATIONAL NORMALIZED RATIO 0.9 RATIO; PROTHROMBIN TIME - PATIENT 10.2 SEC (9.8-11.6)
[2017-05-21 06:18] LABS: ALT (GPT) 30 U/L (10-53); ANION GAP 8 MEQ/L (5-15); AST (GOT) 23 U/L (15-37); BICARBONATE 26.4 MEQ/L (21.0-32.0); BLOOD UREA NITROGEN 20 MG/DL (7-18); CHLORIDE 106 MEQ/L (98-107); GLOMERULAR FILTRATION RATE 66 ML/MIN (>89); MAGNESIUM 2.1 MG/DL (1.5-2.5); POTASSIUM 3.5 MEQ/L (3.5-5.1); SODIUM (NA) 140 MEQ/L (136-145)
[2017-05-21 06:28] LABS: ALKALINE PHOSPHATASE 93 U/L (45-117); TOTAL BILIRUBIN ADULT 0.3 MG/DL (0.2-1.0)
[2017-05-21 06:29] LABS: CREATINE KINASE 87 U/L (26-192)
[2017-05-21] MEDS ORDERED: SODIUM CHLORIDE 0.9% FLUSH 10 ML FLUSH IV FLUSH PRN (07:45)
[2017-05-21] MEDS ORDERED: LACTULOSE SYRUP 20 GM/30 ML CUP PO PRN (07:45)
[2017-05-21] MEDS ORDERED: NALOXONE HCL 0.4 MG/ML AMP IV PRN (07:45)
[2017-05-21] MEDS ORDERED: SENNOSIDES 8.6 MG TAB PO PRN (07:45)
[2017-05-21] MEDS ORDERED: MAGNESIUM HYDROXIDE SUSP 30 ML CUP PO PRN (07:45)
[2017-05-21] MEDS ORDERED: BISACODYL 10 MG SUPP RECTAL PRN (07:45)
[2017-05-21 08:00] LABS: BACTERIA, URINE MOD /hpf; BLOOD, URINE NEG (NEG); COMMENT (UR) CULTURE INDICATED; CULTURE IF INDICATED CULTURE INDICATED; GLUCOSE,URINE NEG (NEG); KETONE, URINE NEG (NEG); NITRITE,URINE NEG (NEG); PH, URINE 6.5 (5.0-8.5); SQUAMOUS EPITHELIAL CELL URINE 4 /hpf (0-5); URINE COLOR LIGHT-YELLOW (YELLW/STRAW)
[2017-05-21] MEDS ORDERED: PILL SPLITTER OTHER PRN (08:00)
[2017-05-21] MEDS: SODIUM CHLORIDE 0.9% FLUSH 10 ML FLUSH IV FLUSH SCH ×2 (09:00→20:38)
[2017-05-21] MEDS: DOCUSATE SODIUM 50 MG/SENNA 8.6 MG TAB PO SCH ×2 (09:00→20:38)
--- NOTE | 2017-05-21 09:06 | HHI.HP ---
HPI Service [facility] Primary Care Physician Berny Sheikh MD Admission Diagnosis Palpitations, h/o V tach Diagnoses: Travel History International Travel<30 Days: No Contact w/Intl Traveler <30 Da: No Traveled to Known Affected Are: No History of Present Illness 56-year-old female with mild coronary artery disease with catheterization , history of palpitations, PVCs, PACs, GERD, who presents with acute onset "pulling" chest discomfort around 2 AM, with palpitations, lightheadedness. This resolved upon presentation to the ER, however she is still very concerned about chest pain. She denies any additional associated symptoms. She reports feeling fine yesterday. Denies any nausea, vomiting, night sweats, weight loss. She reports that her GERD is well controlled. She denies any difficulty swallowing. Review of Systems Except as stated in HPI: all other systems reviewed are Neg Past Family Social History Past Medical History History of breast cancer with chemotherapy, radiation to right breast. Hodgkin's lymphoma in 2000 GERD Hypertension Hypothyroidism Mitral valve prolapse History of PACs and PVCs. Treated with flecainide. CAD. Cardiac catheterization 05/08/17 with mild one-vessel coronary artery disease in right dominant system. Normal ejection fraction 65% at that time. Past Surgical History Hysterectomy Appendectomy Adenoidectomy Cholecystectomy Right breast lumpectomy Reported Medications Reported Meds & Active Scripts Active Aspirin EC (Aspirin) 81 Mg Tabdr 81 Mg PO DAILY 90 Days Reported Omeprazole 20 Mg Tab 20 Mg PO DAILY Flecainide (Flecainide Acetate) 50 Mg Tab 50 Mg PO BID Tapazole (Methimazole) 5 Mg Tab 2.5 Mg PO DAILY Allergies: Coded Allergies: codeine (Unverified Allergy, Intermediate, NASUSEA/VOMITING, 05/21/17) adhesive (Unverified Adverse Reaction, Unknown, RASH, 05/21/17) Family History Mother from pancreatic cancer at age 70. Father with hypertension. Social History Nonsmoker. Nondrinker. Denies any illicit drugs. Physical Exam Vital Signs Vital Signs Date Time Temp Pulse Resp B/P (MAP) Pulse Ox O2 Delivery O2 Flow Rate FiO2 05/21/17 07:12 83 15 118/68 (85) 96 Room Air 05/21/17 05:22 96 Nasal Cannula 2.00 Physical Exam GENERAL: This is a well-nourished, well-developed patient, in no apparent distress. SKIN: No rashes, ecchymoses or lesions. Cool and dry. HEAD: Atraumatic. Normocephalic. No temporal or scalp tenderness. EYES: Pupils equal round and reactive. Extraocular motions intact. No scleral icterus. No injection or drainage. ENT: Nose without bleeding, purulent drainage or septal hematoma. Throat without erythema, tonsillar hypertrophy or exudate. Uvula midline. Airway patent. NECK: Trachea midline. No JVD or lymphadenopathy. Supple, nontender, no meningeal signs. CARDIOVASCULAR: Regular rate and rhythm without murmurs, gallops, or rubs. RESPIRATORY: Clear to auscultation. Breath sounds equal bilaterally. No wheezes , rales, or rhonchi. GASTROINTESTINAL: Abdomen soft, non-tender, nondistended. No hepato-splenomegaly , or palpable masses. No guarding. MUSCULOSKELETAL: Extremities without clubbing, cyanosis, or edema. No joint tenderness, effusion, or edema noted. No calf tenderness. Negative Homans sign bilaterally. NEUROLOGICAL: Awake and alert. Cranial nerves II through XII intact. Motor and sensory grossly within normal limits. Five out of 5 muscle strength in all muscle groups. Normal speech. Laboratory Laboratory Tests Test 05/21/17 05:31 05/21/17 07:30 White Blood Count 5.6 Red Blood Count 4.29 Hemoglobin 12.3 Hematocrit 36.9 Mean Corpuscular Volume 86.0 Mean Corpuscular Hemoglobin 28.6 Mean Corpuscular Hemoglobin Concent 33.3 Red Cell Distribution Width 13.1 Platelet Count 184 Mean Platelet Volume 9.6 Neutrophils (%) (Auto) 45.2 Lymphocytes (%) (Auto) 42.0 Monocytes (%) (Auto) 8.4 Eosinophils (%) (Auto) 4.1 Basophils (%) (Auto) 0.3 Neutrophils # (Auto) 2.5 Lymphocytes # (Auto) 2.3 Monocytes # (Auto) 0.5 Eosinophils # (Auto) 0.2 Basophils # (Auto) 0.0 CBC Comment DIFF FINAL Differential Comment Prothrombin Time 10.2 Prothromb Time International Ratio 0.9 Activated Partial Thromboplast Time 27.9 Blood Urea Nitrogen 20 Creatinine 0.88 Random Glucose 98 Total Protein 7.6 Albumin 3.7 Calcium Level 8.8 Magnesium Level 2.1 Alkaline Phosphatase 93 Aspartate Amino Transf (AST/SGOT) 23 Alanine Aminotransferase (ALT/SGPT) 30 Total Bilirubin 0.3 Sodium Level 140 Potassium Level 3.5 Chloride Level 106 Carbon Dioxide Level 26.4 Anion Gap 8 Estimat Glomerular Filtration Rate 66 Total Creatine Kinase 87 Troponin I LESS THAN 0.02 B-Type Natriuretic Peptide 4 Lipase 294 Thyroid Stimulating Hormone 3rd Gen 3.290 Urine Color LIGHT-YELLOW Urine Turbidity HAZY Urine pH 6.5 Urine Specific Plessis 1.011 Urine Protein NEG Urine Glucose (UA) NEG Urine Ketones NEG Urine Occult Blood NEG Urine Nitrite NEG Urine Bilirubin NEG Urine Urobilinogen LESS THAN 2.0 Urine Leukocyte Esterase LARGE Urine RBC 1 Urine WBC 35 Urine Squamous Epithelial Cells 4 Urine Bacteria MOD Microscopic Urinalysis Comment CULTURE INDICATED Date/Time Source Procedure Growth Status 05/21/17 07:30 Urine Clean Catch Urine Culture Pending Received Result Diagram: 05/21/17 0531 05/21/17 0531 Caprini VTE Risk Assessment Caprini VTE Risk Assessment: No/Low Risk (score <= 1) Caprini Risk Assessment Model Point Value = 1 Point Value = 2 Point Value = 3 Point Value = 5 Age 41-60 Minor surgery BMI > 25 kg/m2 Swollen legs Varicose veins or History of unexplained or recurrent spontaneous Oral contraceptives or hormone replacement Sepsis (< 1 month) Serious lung disease, including pneumonia (< 1 month) Abnormal pulmonary function Acute myocardial infarction Congestive heart failure (< 1 month) History of inflammatory bowel disease Medical patient at bed rest Age 61-74 Arthroscopic surgery Major open surgery (> 45 min) Laparoscopic surgery (> 45 min) Malignancy Confined to bed (> 72 hours) Immobilizing plaster cast Central venous access Age >= 75 History of VTE Family history of VTE Factor V Leiden Prothrombin [id number] Lupus anticoagulant Anticardiolipin antibodies Elevated serum homocysteine Heparin-induced thrombocytopenia Other congenital or acquired thrombophilia Stroke (< 1 month) Elective arthroplasty Hip, pelvis, or leg fracture Acute spinal cord injury (< 1 month) Prophylaxis Regimen Total Risk Factor Score Risk Level Prophylaxis Regimen 0-1 Low Early ambulation 2 Moderate Order ONE of the following: *Sequential Compression Device (SCD) *Heparin 5000 units SQ BID 3-4 Higher Order ONE of the following medications: *Heparin 5000 units SQ TID *Enoxaparin/Lovenox 40 mg SQ daily (WT < 150 kg, CrCl > 30 mL/min) *Enoxaparin/Lovenox 30 mg SQ daily (WT < 150 kg, CrCl > 10-29 mL/min) *Enoxaparin/Lovenox 30 mg SQ BID (WT < 150 kg, CrCl > 30 mL/min) AND/OR *Sequential Compression Device (SCD) 5 or more Highest Order ONE of the following medications: *Heparin 5000 units SQ TID (Preferred with Epidurals) *Enoxaparin/Lovenox 40 mg SQ daily (WT < 150 kg, CrCl > 30 mL/min) *Enoxaparin/Lovenox 30 mg SQ daily (WT < 150 kg, CrCl > 10-29 mL/min) *Enoxaparin/Lovenox 30 mg SQ BID (WT < 150 kg, CrCl > 30 mL/min) AND *Sequential Compression Device (SCD) Assessment and Plan Assessment and Plan //Chest pain //Cardiac arrhythmia //Mild CAD -Admit to observation. Magnesium 2.1. Calcium 8.8. Potassium 3.5. -Place on telemetry. -Trend EKGs and troponins. -Chest x-ray personally interpreted on admission with no acute abnormalities. -Continue aspirin. Continue flecainide. -Cardiology consulted. //Possible sleep apnea. Waking up with chest pain and tachycardia in the middle night. After all this is over, patient should have workup for sleep apnea as an outpatient. //History of ventricular tachycardia, PVCs. //GERD. Chronic. Continue PPI. -Patient has follow-up scheduled with gastric urology as outpatient to rule out esophageal cause of atypical chest pain. //Hypertension. Chronic. Blood pressure acceptable on admission. Continue to monitor. //Hypothyroidism. Chronic. TSH reviewed 3.29. Continue methimazole. //History of lymphoma, breast cancer stable. //DVT prophylaxis. Low risk. Patient is ambulatory. Discussed Condition With Patient, nurse, ED physician. Sunny Castro MD May 21, 2017 09:06
[2017-05-21] MEDS: ASPIRIN EC 81 MG TABEC PO SCH (10:39)
[2017-05-21] MEDS: FLECAINIDE ACETATE 100 MG TAB PO SCH ×2 (10:39→20:38)
[2017-05-21] MEDS: METHIMAZOLE 5 MG TAB PO SCH (10:39)
[2017-05-21] MEDS: PANTOPRAZOLE SOD 20 MG DELAYED RELEASE TAB PO SCH (10:39)
[2017-05-21 12:20] LABS: CREATINE KINASE 75 U/L (26-192)
[2017-05-21 15:19] LABS: FREE T4 1.27 NG/DL (0.76-1.46)
[2017-05-21 15:24] LABS: CREATINE KINASE 74 U/L (26-192)
--- NOTE | 2017-05-21 20:02 | EKG ---
Date Performed: 05/21/2017 Time Performed: 04:50:59 PTAGE: 56 years EKG: Sinus rhythm WITH FIRST DEGREE AV BLOCK NONSPECIFIC T-WAVE ABNORMALITY ABNORMAL ECG PREVIOUS TRACING : 05/07/2017 23.40 DOCTOR: Claudia Baldwin Interpretating Date/Time 05/21/2017 19:59:36
[2017-05-22 00:10] VITALS: BP 122/66; PULSE 70; RESP 18; TEMP 98.6; O2SAT 97
[2017-05-22 03:59] VITALS: BP 125/67; PULSE 68; RESP 17; TEMP 98.5; O2SAT 97
[2017-05-22 06:41] LABS: AUTOMATED NEUTROPHIL # 3.1 TH/MM3 (1.8-7.7); BASOPHIL % 0.3 % (0.0-2.0); EOSINOPHIL # 0.2 TH/MM3 (0-0.4); EOSINOPHIL % 3.2 % (0.0-4.0); HEMATOCRIT 37.7 % (35.0-46.0); HEMO FLAGS DIFF FINAL; LYMPH % 37.9 % (9.0-44.0); LYMPHOCYTE # 2.3 TH/MM3 (1.0-4.8); MEAN CELL VOLUME 86.6 FL (80.0-100.0); MEAN CORPUSCULAR HEMOGLOBIN 29.1 PG (27.0-34.0); MEAN CORPUSCULAR HGB CONC 33.6 % (32.0-36.0); MONO % 7.1 % (0.0-8.0); NEUT % 51.5 % (16.0-70.0); PLATELET COUNT 177 TH/MM3 (150-450); RED BLOOD COUNT 4.35 MIL/MM3 (4.00-5.30); RED CELL DISTRIBUTION WIDTH 13.2 % (11.6-17.2)
[2017-05-22 07:13] LABS: BICARBONATE 27.6 MEQ/L (21.0-32.0); POTASSIUM 3.9 MEQ/L (3.5-5.1)
[2017-05-22 07:28] VITALS: PULSE 67
[2017-05-22 08:05] VITALS: BP 111/63; PULSE 75; RESP 16; TEMP 97.9; O2SAT 95
[2017-05-22] MEDS: ASPIRIN EC 81 MG TABEC PO SCH (08:20)
[2017-05-22] MEDS: SODIUM CHLORIDE 0.9% FLUSH 10 ML FLUSH IV FLUSH SCH (08:22)
[2017-05-22] MEDS: PANTOPRAZOLE SOD 20 MG DELAYED RELEASE TAB PO SCH (08:22)
[2017-05-22] MEDS: DOCUSATE SODIUM 50 MG/SENNA 8.6 MG TAB PO SCH (08:22)
[2017-05-22] MEDS: FLECAINIDE ACETATE 100 MG TAB PO SCH (08:22)
[2017-05-22] MEDS: METHIMAZOLE 5 MG TAB PO SCH (09:13)
[2017-05-22 11:30] VITALS: PULSE 80
[2017-05-22 11:46] VITALS: BP 109/60; PULSE 80; RESP 16; TEMP 98; O2SAT 96
--- NOTE | 2017-05-22 13:44 | EKG ---
Date Performed: 05/21/2017 Time Performed: 14:03:08 PTAGE: 56 years EKG: Sinus rhythm NONSPECIFIC T-WAVE ABNORMALITY BORDERLINE ECG Compared to prior tracing no significant change PREVIOUS TRACING : 05/21/2017 04.50 DOCTOR: Albaro Erwin Interpretating Date/Time 05/22/2017 13:43:33
--- NOTE | 2017-05-22 15:56 | PD.CARD.PN ---
Subjective Subjective Remarks alert in nad Objective Vital Signs / I&O Vital Signs Date Time Temp Pulse Resp B/P (MAP) Pulse Ox O2 Delivery O2 Flow Rate FiO2 05/22/17 11:46 98.0 80 16 109/60 (76) 96 05/22/17 11:30 80 05/22/17 08:05 97.9 75 16 111/63 (79) 95 05/22/17 07:28 67 05/22/17 03:59 98.5 68 17 125/67 (86) 97 05/22/17 00:10 98.6 70 18 122/66 (84) 97 05/21/17 23:00 81 05/21/17 20:05 98.8 76 18 112/60 (77) 96 05/21/17 16:09 80 I/O 05/21/17 05/21/17 05/21/17 05/22/17 05/22/17 05/22/17 06:59 14:59 22:59 06:59 14:59 22:59 Intake Total 500 ml Balance 500 ml Intake IV Total 500 ml Laboratory GENERAL: SKIN: Warm and dry. HEAD: Normocephalic. EYES: No scleral icterus. No injection or drainage. NECK: Supple, trachea midline. No JVD or lymphadenopathy. CARDIOVASCULAR: Regular rate and rhythm without murmurs, gallops, or rubs. RESPIRATORY: Breath sounds equal bilaterally. No accessory muscle use. GASTROINTESTINAL: Abdomen soft, non-tender, nondistended. MUSCULOSKELETAL: No cyanosis, or edema. BACK: Nontender without obvious deformity. No CVA tenderness. Laboratory Tests Test 05/22/17 05:40 White Blood Count 6.0 TH/MM3 Red Blood Count 4.35 MIL/MM3 Hemoglobin 12.7 GM/DL Hematocrit 37.7 % Mean Corpuscular Volume 86.6 FL Mean Corpuscular Hemoglobin 29.1 PG Mean Corpuscular Hemoglobin Concent 33.6 % Red Cell Distribution Width 13.2 % Platelet Count 177 TH/MM3 Mean Platelet Volume 8.7 FL Neutrophils (%) (Auto) 51.5 % Lymphocytes (%) (Auto) 37.9 % Monocytes (%) (Auto) 7.1 % Eosinophils (%) (Auto) 3.2 % Basophils (%) (Auto) 0.3 % Neutrophils # (Auto) 3.1 TH/MM3 Lymphocytes # (Auto) 2.3 TH/MM3 Monocytes # (Auto) 0.4 TH/MM3 Eosinophils # (Auto) 0.2 TH/MM3 Basophils # (Auto) 0.0 TH/MM3 CBC Comment DIFF FINAL Differential Comment Blood Urea Nitrogen 12 MG/DL Creatinine 0.72 MG/DL Random Glucose 89 MG/DL Calcium Level 8.8 MG/DL Sodium Level 139 MEQ/L Potassium Level 3.9 MEQ/L Chloride Level 104 MEQ/L Carbon Dioxide Level 27.6 MEQ/L Anion Gap 7 MEQ/L Estimat Glomerular Filtration Rate 84 ML/MIN Assessment and Plan Problem List: (1) Palpitations ICD Codes: R00.2 - Palpitations Status: Acute (2) History of ventricular tachycardia ICD Codes: Z86.79 - Personal history of other diseases of the circulatory system Status: Acute (3) Near syncope ICD Codes: R55 - Syncope and collapse Status: Acute Assessment and Plan 1.) Palpitations - f/u rec Dr Feldman, continue flecainide per Charli Rodriguez MD May 22, 2017 15:56
--- NOTE | 2017-05-31 13:05 | MB ---
cc: CHARLI DOYLE M.D. DATE OF CONSULTATION 05/21/2017 HISTORY Sol is a very pleasant 61-year-old lady with history of mild coronary artery disease by recent cath, a history of V-tach followed by Dr. Feldman on flecainide who presents with chief complaint of palpitations that woke her up around 3 or 4 o'clock this morning. It lasted about a half hour. Currently she is resting in no acute distress. Denies any fevers, chills, cough, GI or bleeding, paroxysmal nocturnal dyspnea, orthopnea, syncope or dizziness although she did feel lightheaded with palpitations. The palpitations lasted for about a half an hour. PAST MEDICAL HISTORY Is per the history of present illness. 1. History of breast cancer in 1997. 2. Hodgkin's lymphoma 2001. 3. Mitral valve prolapse. 4. History of chest pain. 5. Gastroesophageal reflux disease. 6. Left knee surgery. 7. Total hysterectomy. 8. Hypothyroidism. 9. Cholecystectomy. 10. Appendectomy. 11. Tonsillectomy. 12. Adenoidectomy. SOCIAL HISTORY She denies tobacco or alcohol use. ALLERGIES CODEINE AND ADHESIVES. MEDICATIONS Prior to admission: 1. Aspirin 81 mg daily. 2. Omeprazole. 3. Flecainide. 4. Tapazole. Medications in the hospital: 1. Aspirin 81 mg daily. 2. Flecainide 50 milligrams twice a day. 3. Tapazole 2.5 milligrams daily. 4. Pantoprazole 20 milligrams daily. PHYSICAL EXAMINATION VITAL SIGNS: Blood pressure 110/67, respiratory rate 18, pulse 80, temperature 98.3, sats 97% on room air. GENERAL: She is alert and oriented times three in no acute distress. NECK: Supple. No JVD or bruit. CARDIOVASCULAR: Normal S1-S2. No murmurs, rubs, or gallops. LUNGS: Clear to auscultation bilaterally. ABDOMEN: Soft, nontender, nondistended with positive bowel sounds. EXTREMITIES: No lower extremity edema. LABORATORY DATA White count 5.6, hemoglobin 12.3, hematocrit 36.9, platelet count 184. Troponin is less than 0.2 x2. Sodium 140, potassium 3.5, chloride 106, bicarbonate 26.4, BUN 28, creatinine 0.88. LFTs normal. TSH is 3.90. INR is 0.9. IMAGING Chest x-ray no evidence of acute cardiopulmonary disease. EKG normal sinus rhythm at 82 beats per minute. The corrected QT interval is 440 milliseconds. There are nonspecific ST-T wave changes mostly due to baseline moderate artifact. She has a first-degree A-V block. She has the following diagnoses. DIAGNOSES 1. History V-tach. 2. Palpitations. 3. Near-syncope. 4. Coronary disease. DISCUSSION At this point in time I am going to consult Dr. Feldman to review possible readjustment of her antiarrhythmic medication. Continue aspirin 81 mg a day. Continue telemetry monitoring. Replete electrolytes p.r.n. Charli Doyle MD AWC/genesis /12:51 PM /12:56 PM
== END 2017-05-22 16:00 | disposition home or self-care (01) ==
LOC: NEPE 04:43 → NEDA 07:23 → NEPFCDU 08:28
PROVIDERS: ADMIT Internal Medicine; ATTEND Internal Medicine
DX: R00.2 Palpitations (principal); R55 Syncope and collapse; I25.10 Atherosclerotic heart disease of native coronary artery without angina pectoris; I10 Essential (primary) hypertension; E03.9 Hypothyroidism, unspecified; I34.1 Nonrheumatic mitral (valve) prolapse; I49.3 Ventricular premature depolarization; K21.9 Gastro-esophageal reflux disease without esophagitis; Z79.82 Long term (current) use of aspirin; Z86.79 Personal history of other diseases of the circulatory system; Z85.71 Personal history of Hodgkin lymphoma; Z85.3 Personal history of malignant neoplasm of breast; Z92.21 Personal history of antineoplastic chemotherapy
CPT/HCPCS: 71010; 80048; 80053; 81001; 82550; 83690; 83735; 83880; 84439; 84443; 84480; 84484; 85025; 85610; 85730; 87086; 93005; 99285; G0378; J7040

== ENCOUNTER 2017-10-11 23:34 | Emergency (ER) | payer BC ==
[~2017-10-11] VITALS: Ht 180.3 cm; Wt 70.0 kg
[~2017-10-11 23:34] MED LIST changes: -ASPI81TA11 PO; +ASPI81TA23 PO; -LIPI20TA PO; -OMEP20TA PO; +OMEP20TA93 PO
[2017-10-11 23:43] VITALS: BP 107/63; PULSE 82; RESP 16; TEMP 98.4; O2SAT 98
[2017-10-11] MEDS ORDERED: ATOR20TA15 PO (23:50)
[2017-10-11] MEDS ORDERED: SODIUM CHLOR 0.9% 1000 ML INJ 1,000 ML IV SCH (23:58)
[2017-10-12] MEDS ORDERED: HYDROmorphone HCL PF 1 MG/ML VIAL IVS ONE
[2017-10-12] MEDS ORDERED: FAMOTIDINE 20 MG/2 ML VIAL IV PUSH ONE
[2017-10-12] MEDS ORDERED: SODIUM CHLORIDE 0.9% FLUSH 10 ML FLUSH IV FLUSH PRN
[2017-10-12] MEDS ORDERED: ONDANSETRON HCL 4 MG/2 ML VIAL IVP ONE
[2017-10-12] MEDS ORDERED: HYDROmorphone HCL PF 2 MG/ML VIAL IV PUSH ONE ×2 (00:15→02:00)
[2017-10-12 00:34] LABS: AUTOMATED NEUTROPHIL # 3.9 TH/MM3 (1.8-7.7); BASOPHIL % 0.2 % (0.0-2.0); EOSINOPHIL % 0.1 % (0.0-4.0); HEMATOCRIT 39.7 % (35.0-46.0); HEMOGLOBIN 13.8 GM/DL (11.6-15.3); LYMPH % 20.2 % (9.0-44.0); LYMPHOCYTE # 1.1 TH/MM3 (1.0-4.8); MEAN CELL VOLUME 83.5 FL (80.0-100.0); MEAN CORPUSCULAR HGB CONC 34.7 % (32.0-36.0); MEAN PLATELET VOLUME 9.3 FL (7.0-11.0); MONO % 6.9 % (0.0-8.0); MONOCYTE # 0.4 TH/MM3 (0-0.9); NEUT % 72.6 % (16.0-70.0); PLATELET COUNT 158 TH/MM3 (150-450); RED BLOOD COUNT 4.75 MIL/MM3 (4.00-5.30); RED CELL DISTRIBUTION WIDTH 13.2 % (11.6-17.2); WHITE BLOOD COUNT 5.3 TH/MM3 (4.0-11.0)
[2017-10-12 01:07] LABS: ALBUMIN 3.7 GM/DL (3.4-5.0); ALT (GPT) 46 U/L (10-53); AST (GOT) 99 U/L (15-37); BICARBONATE 24.8 MEQ/L (21.0-32.0); BLOOD UREA NITROGEN 20 MG/DL (7-18); CALCIUM 8.5 MG/DL (8.5-10.1); CHLORIDE 106 MEQ/L (98-107); CREATININE 0.67 MG/DL (0.50-1.00); GLOMERULAR FILTRATION RATE 91 ML/MIN (>89); GLUCOSE,RANDOM 104 MG/DL (74-106); LIPASE 145 U/L (73-393); SODIUM (NA) 138 MEQ/L (136-145)
[2017-10-12 01:09] LABS: ALKALINE PHOSPHATASE 110 U/L (45-117); TOTAL BILIRUBIN ADULT 0.9 MG/DL (0.2-1.0); TOTAL PROTEIN 7.7 GM/DL (6.4-8.2)
[2017-10-12] MEDS ORDERED: IOHEXOL 350 MG/ML 10 ML VIAL (for RAD DIAG) IVCONTRAST ONE (01:37)
--- NOTE | 2017-10-12 02:10 | RADRPT ---
EXAM DATE/TIME: 10/12/2017 01:30 [facility] COMPARISON: CT ABDOMEN & PELVIS W CONTRAST, August 18, 2015, 21:32. INDICATIONS : Abdominal pain with nausea. IV CONTRAST: 100 cc Omnipaque 350 (iohexol) IV ORAL CONTRAST: No oral contrast ingested. RADIATION DOSE: 6.64 CTDIvol (mGy) MEDICAL HISTORY : Gastroesophageal reflux disease. Carcinoma, breast. Lymphoma. SURGICAL HISTORY : Hysterectomy. Cholecystectomy. ENCOUNTER: Initial ACUITY: 1 day PAIN SCALE: 8/10 LOCATION: abdomen TECHNIQUE: Volumetric scanning of the abdomen and pelvis was performed. Using automated exposure control and ad justment of the mA and/or kV according to patient size, radiation dose was kept as low as reasonably achievable to obtain optimal diagnostic quality images. DICOM format image data is available electro nically for review and comparison. FINDINGS: LOWER CHEST: The visualized lower lungs are clear. There appears to be postoperative change in the medial right br east. LIVER: There is intrahepatic and extrahepatic biliary duct dilatation with the common bile that measuring up to 1 cm. The patient is status post cholecystectomy. SPLEEN: Normal size without lesion. PANCREAS: There is persistent mild dilatation of the pancreatic duct. KIDNEYS: Normal in size and shape. There is no mass, stone or hydronephrosis. ADRENAL GLANDS: Within normal limits. VASCULAR: There is no aortic aneurysm. BOWEL/MESENTERY: There is persistent hazy density seen in the mesentery. There are some prominent lymph nodes in the l eft mid abdomen mesentery measuring up to 1.5 cm. This appears slightly more prominent on the current exam. ABDOMINAL WALL: Within normal limits. RETROPERITONEUM: There is no lymphadenopathy. BLADDER: No wall thickening or mass. REPRODUCTIVE: The patient is status post hysterectomy. INGUINAL: There is no lymphadenopathy or hernia. MUSCULOSKELETAL: There is a stable small focal sclerosis at the inferior right ilium likely related to bone island giv en the stability. CONCLUSION: 1. Biliary duct dilatation likely secondary to a reservoir from on cholecystectomy. 2. Minimal hazy density in the mesentery with some prominent lymph nodes in the left mid abdomen. The most prominent lymph node is slightly larger on the current exam. Michael Jara MD on October 12, 2017 at 2:02 Board Certified Radiologist. This report was verified electronically.
[2017-10-12 03:00] VITALS: BP 102/59; PULSE 100; RESP 14; O2SAT 96
[2017-10-12] MEDS ORDERED: POTASSIUM CHLORIDE 20 MEQ CONTROLLED RELEASE TAB PO ONE (03:15)
[2017-10-12] MEDS ORDERED: PROT40TA PO (03:21)
[2017-10-12] MEDS ORDERED: CARA1TAB6 PO (03:21)
[2017-10-12] MEDS ORDERED: TRAM50 PO (03:21)
--- NOTE | 2017-10-12 03:21 | PD ---
HPI . Abdominal pain Chief Complaint: Abdominal Pain Time Seen by Provider: 23:57 Travel History International Travel<30 days: No Contact w/Intl Traveler<30days: No Traveled to known affect area: No History of Present Illness HPI 57-year-old female with a history of chronic recurrent pancreatitis, brought in by ambulance complaining of epigastric pain consistent with prior exacerbation of pancreatitis. Patient notes pain is sharp, with a dull underlying component , does not radiate into the back. Patient notes worsening of pain upon palpation of epigastrium. Patient denies any devyn chest pain, shortness of breath, or change in exercise tolerance lately. Patient denies fever chills sweats, notes nausea but denies vomiting, has no diarrhea or stearrhea. No significant travel history, no idiosyncratic food intake. 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) Cancer: Yes (BREAST CANCER 1997, HODGKINS LYMPHOMA 2001) Cardiac Catheterization: Yes (2016) Cardiovascular Problems: Yes (PVC, Mitral Valve Prolapse) High Cholesterol: No Chemotherapy: Yes (2001) Chest Pain: Yes (CHEST PAIN) Congestive Heart Failure: No Cerebrovascular Accident: No Diabetes: No Diminished Hearing: No Endocrine: Yes Gastrointestinal Disorders: Yes GERD: Yes (GERD) Genitourinary: Yes Headaches: No Hypertension: No Musculoskeletal: Yes (BAD BACK, LEFT KNEE SURGERY ) Neurologic: No Psychiatric: No Reproductive: Yes (TOTAL HYSTERECTOMY) Respiratory: No Immunizations Current: No Migraines: Yes Radiation Therapy: Yes Seizures: No Sickle Cell Disease: No Thyroid Disease: Yes (HYPERTHYROID) Tetanus Vaccination: < 5 Years Influenza Vaccination: No ?: Not Menopausal: Yes Past Surgical History Abdominal Surgery: Yes (Gall bladder removal) AICD: No Appendectomy: Yes Arteriovenous Shunt: No Body Medical Devices: surgical clamps from breast surgery Cardiac Surgery: No Cholecystectomy: Yes Ear Surgery: No Endocrine Surgery: No Eye Surgery: No Gynecologic Surgery: Yes (Total hysterectomy) Hysterectomy: Yes Insulin Pump: No Joint Replacement: No Oral Surgery: No Pacemaker: No Thoracic Surgery: No Tonsillectomy: Yes (AND ADENOIDS) Other Surgery: Yes (Lumpectomy with nodes) Social History Alcohol Use: No Tobacco Use: No Substance Use: No Allergies-Medications (Allergen,Severity, Reaction): Coded Allergies: codeine (Unverified Allergy, Intermediate, NASUSEA/VOMITING, 05/21/17) adhesive (Unverified Adverse Reaction, Unknown, RASH, 05/21/17) Reported Meds & Prescriptions Reported Meds & Active Scripts Active Aspirin EC (Aspirin) 81 Mg Tabdr 81 Mg PO DAILY 90 Days Reported Atorvastatin (Atorvastatin Calcium) 20 Mg Tab 20 Mg PO HS Omeprazole 20 Mg Tab 20 Mg PO DAILY Flecainide (Flecainide Acetate) 50 Mg Tab 50 Mg PO BID Tapazole (Methimazole) 5 Mg Tab 2.5 Mg PO DAILY Narrative Medication Allergies and medications reviewed Review of Systems Except as stated in HPI: all other systems reviewed are Neg General / Constitutional: No: Fever Eyes: No: Visual changes HENT: No: Headaches Cardiovascular: No: Chest Pain or Discomfort Respiratory: No: Shortness of Breath Gastrointestinal: Positive: Nausea, Abdominal Pain, No: Vomiting, Diarrhea, Hematemesis, Hematochezia, Constipation Genitourinary: No: Dysuria Musculoskeletal: No: Pain Skin: No Rash Neurologic: No: Weakness Psychiatric: No: Depression Endocrine: No: Polydipsia Hematologic/Lymphatic: No: Easy Bruising Physical Exam Narrative GENERAL: Awake and alert oriented 3 uncomfortable appearing no acute distress SKIN: Warm and dry. Color is sallow, no diaphoresis cyanosis or pallor HEAD: Atraumatic. Normocephalic. EYES: Pupils equal and round. No scleral icterus. No injection or drainage. ENT: No nasal bleeding or discharge. Mucous membranes pink and moist. NECK: Trachea midline. No JVD. Supple full range of motion CARDIOVASCULAR: Regular rate and rhythm. S1-S2 no murmurs rubs or gallops RESPIRATORY: No accessory muscle use. Clear to auscultation. Breath sounds equal bilaterally. GASTROINTESTINAL: Abdomen soft, tender mid epigastrium, no rebound or guarding no organomegaly appreciated, nondistended. Hepatic and splenic margins not palpable. MUSCULOSKELETAL: Extremities without clubbing, cyanosis, or edema. No obvious deformities. NEUROLOGICAL: Awake and alert. No obvious cranial nerve deficits. Motor grossly within normal limits. Five out of 5 muscle strength in the arms and legs. Normal speech. PSYCHIATRIC: Appropriate mood and affect; insight and judgment normal. Data Data Last Documented VS Vital Signs Date Time Temp Pulse Resp B/P (MAP) Pulse Ox O2 Delivery O2 Flow Rate FiO2 1/26/18 03:00 100 14 102/59 (73) 96 Room Air 10/11/17 23:43 98.4 Orders Orders Complete Blood Count With Diff (10/11/17 23:58) Comprehensive Metabolic Panel (10/11/17 23:58) Lipase (10/11/17 23:58) Lactic Acid (10/11/17 23:58) Urinalysis - C+S If Indicated (10/11/17 23:58) Ct Abd/Pel W Iv Contrast(Rout) (10/11/17 23:58) Iv Access Insert/Monitor (10/11/17 23:58) Ecg Monitoring (10/11/17 23:58) Oximetry (10/11/17 23:58) Ondansetron Inj (Zofran Inj) (10/12/17 00:00) Sodium Chlor 0.9% 1000 Ml Inj (Ns 1000 M (10/11/17 23:58) Sodium Chloride 0.9% Flush (Ns Flush) (10/12/17 00:00) Famotidine Inj (Pepcid Inj) (10/12/17 00:00) Hydromorphone Pf Inj (Dilaudid Pf Inj) (10/12/17 00:15) Iohexol 350 Inj (Omnipaque 350 Inj) (10/12/17 01:37) Hydromorphone Pf Inj (Dilaudid Pf Inj) (10/12/17 02:00) Potassium Chloride (Kcl) (10/12/17 03:15) Magnesium (Mg) (10/12/17 03:08) Labs Laboratory Tests Test 10/12/17 00:05 10/12/17 00:20 White Blood Count 5.3 TH/MM3 Red Blood Count 4.75 MIL/MM3 Hemoglobin 13.8 GM/DL Hematocrit 39.7 % Mean Corpuscular Volume 83.5 FL Mean Corpuscular Hemoglobin 29.0 PG Mean Corpuscular Hemoglobin Concent 34.7 % Red Cell Distribution Width 13.2 % Platelet Count 158 TH/MM3 Mean Platelet Volume 9.3 FL Neutrophils (%) (Auto) 72.6 % Lymphocytes (%) (Auto) 20.2 % Monocytes (%) (Auto) 6.9 % Eosinophils (%) (Auto) 0.1 % Basophils (%) (Auto) 0.2 % Neutrophils # (Auto) 3.9 TH/MM3 Lymphocytes # (Auto) 1.1 TH/MM3 Monocytes # (Auto) 0.4 TH/MM3 Eosinophils # (Auto) 0.0 TH/MM3 Basophils # (Auto) 0.0 TH/MM3 CBC Comment DIFF FINAL Differential Comment Blood Urea Nitrogen 20 MG/DL Creatinine 0.67 MG/DL Random Glucose 104 MG/DL Total Protein 7.7 GM/DL Albumin 3.7 GM/DL Calcium Level 8.5 MG/DL Alkaline Phosphatase 110 U/L Aspartate Amino Transf (AST/SGOT) 99 U/L Alanine Aminotransferase (ALT/SGPT) 46 U/L Total Bilirubin 0.9 MG/DL Sodium Level 138 MEQ/L Potassium Level 3.4 MEQ/L Chloride Level 106 MEQ/L Carbon Dioxide Level 24.8 MEQ/L Anion Gap 7 MEQ/L Estimat Glomerular Filtration Rate 91 ML/MIN Lipase 145 U/L Lactic Acid Level 0.7 mmol/L MDM Medical Decision Making Medical Screen Exam Complete: Yes Emergency Medical Condition: Yes Medical Record Reviewed: Yes Differential Diagnosis Pancreatitis, duodenitis, gastritis, choledocholithiasis Narrative Course Patient's laboratory examinations reviewed, no significant abnormalities CT abdomen and pelvis reviewed, patient has slight duodenal thickening, slight inflammation about head of pancreas/distal duodenum, as well as mesentery at the omentum superior to the tail of the pancreas. Chronically dilated common bile duct status post cholecystectomy as well as a dilated pancreatic duct seen on prior examination. Patient received pain medications, H2 blockers, and IV fluids. Patient interval improvement Care plan developed, patient to be discharged with pain medications, clear liquid diet, follow-up with PMD and gastroenterology. Diagnosis Primary Impression: Abdominal pain Qualified Codes: R10.13 - Epigastric pain Additional Impression: Duodenitis Patient Instructions: Abdominal Pain (ED), Duodenitis (ED), General Instructions Additional Instructions: Protonix 40 mg daily. Carafate 1 g orally 4 times daily. Ultram 50 mg every 8 hours as needed for pain. Follow-up with your doctor, recommend gastroenterology referral for possible upper endoscopy. Return for worsening Scripts Tramadol (Ultram) 50 Mg Tab 50 MG PO Q8H Y for PAIN, #30 TAB 0 Refills Prov: Jose Manuel Borja MD 10/12/17 Sucralfate (Carafate) 1 Gram Tab 1 GM PO QID for Ulcer Prevention, #120 TAB 0 Refills On empty stomach Prov: Jose Manuel Borja MD 10/12/17 Pantoprazole (Protonix) 40 Mg Tab 40 MG PO DAILY for Ulcer Prevention, #30 TAB 0 Refills Prov: Jose Manuel Borja MD 10/12/17 Disposition: 01 DISCHARGE HOME Condition: Stable Jose Manuel Borja MD Oct 12, 2017 03:21
[2017-10-12 03:24] LABS: MAGNESIUM 1.8 MG/DL (1.5-2.5)
== END 2017-10-12 04:01 | disposition home or self-care (01) ==
LOC: NEPE 23:34
DX: K86.1 Other chronic pancreatitis (principal); K29.80 Duodenitis without bleeding; K21.9 Gastro-esophageal reflux disease without esophagitis; E05.90 Thyrotoxicosis, unspecified without thyrotoxic crisis or storm; Z85.3 Personal history of malignant neoplasm of breast; Z85.71 Personal history of Hodgkin lymphoma; Z88.5 Allergy status to narcotic agent; Z90.49 Acquired absence of other specified parts of digestive tract; Z90.710 Acquired absence of both cervix and uterus
CPT/HCPCS: 74177; 80053; 83605; 83690; 83735; 85025; 96361; 96374; 96375; 96376; 99285; J1170; J2405; J7030; Q9967

== ENCOUNTER 2017-11-08 22:19 | Observation (INO) | payer BC ==
[~2017-11-08] VITALS: Ht 180.3 cm; Wt 69.0 kg
[2017-11-08 22:19] VITALS: BP 134/70; PULSE 94; RESP 16; TEMP 98.7; O2SAT 97
[~2017-11-08 22:19] MED LIST changes: +ATOR20TA15 PO; +CARA1TAB6 PO; +PROT40TA PO; +TRAM50 PO
[2017-11-08] MEDS ORDERED: ALPR0.5T3 PO (22:37)
--- NOTE | 2017-11-08 22:44 | PD ---
HPI Chief Complaint: Chest Pain Time Seen by Provider: 22:30 Travel History International Travel<30 days: No Contact w/Intl Traveler<30days: No Traveled to known affect area: No History of Present Illness HPI 57-year-old female who reports a history of hypothyroidism presents for evaluation of chest pain. Symptoms started at 3 PM when she was standing in the garage. She describes it as a pressure in the left side of her chest that radiates into the back, left shoulder and neck. Pain is worse with deep inspiration. She reports that she has had dyspnea for months but denies any acute dyspnea today. Denies any diaphoresis, nausea or vomiting, cough or congestion, abdominal pain, fevers or chills. She does report that she had a cardiac ablation performed at [facility] by Dr. melendez 3 weeks ago. She reports that her vp software support is Dr. Raymond. She reports that she had a cardiac catheterization in [address] Raymond. She took a baby aspirin today. She has no other complaints at this time. 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) Cancer: Yes (BREAST CANCER 1997, HODGKINS LYMPHOMA 2001) Cardiac Catheterization: Yes (APR 2017, ABLATION SEP 2017) Cardiovascular Problems: Yes (PVC, Mitral Valve Prolapse) High Cholesterol: No Chemotherapy: Yes (2001) Chest Pain: Yes (CHEST PAIN) Congestive Heart Failure: No Cerebrovascular Accident: No Diabetes: No Diminished Hearing: No Endocrine: Yes Gastrointestinal Disorders: Yes GERD: Yes (GERD) Genitourinary: Yes Headaches: No Hypertension: No Musculoskeletal: Yes (BAD BACK, LEFT KNEE SURGERY ) Neurologic: No Psychiatric: No Reproductive: Yes (TOTAL HYSTERECTOMY) Respiratory: No Immunizations Current: Yes Migraines: Yes Radiation Therapy: Yes Seizures: No Sickle Cell Disease: No Thyroid Disease: Yes (HYPERTHYROID) Menopausal: Yes Past Surgical History Abdominal Surgery: Yes (Gall bladder removal) AICD: No Appendectomy: Yes Arteriovenous Shunt: No Body Medical Devices: surgical clamps from breast surgery Cardiac Surgery: No Cholecystectomy: Yes Ear Surgery: No Endocrine Surgery: No Eye Surgery: No Gynecologic Surgery: Yes (Total hysterectomy) Hysterectomy: Yes Insulin Pump: No Joint Replacement: No Oral Surgery: No Pacemaker: No Thoracic Surgery: No Tonsillectomy: Yes (AND ADENOIDS) Other Surgery: Yes (Lumpectomy with nodes) Social History Alcohol Use: No Tobacco Use: No Substance Use: No Allergies-Medications (Allergen,Severity, Reaction): Coded Allergies: codeine (Unverified Allergy, Intermediate, NASUSEA/VOMITING, 11/08/17) adhesive (Unverified Adverse Reaction, Unknown, RASH, 11/08/17) Reported Meds & Prescriptions Reported Meds & Active Scripts Active Ultram (Tramadol HCl) 50 Mg Tab 50 Mg PO Q8H PRN Protonix (Pantoprazole Sodium) 40 Mg Tab 40 Mg PO DAILY Aspirin EC (Aspirin) 81 Mg Tabdr 81 Mg PO DAILY 90 Days Reported Alprazolam 0.5 Mg Tab 0.5 Mg PO Q6H PRN Flecainide (Flecainide Acetate) 50 Mg Tab 50 Mg PO BID Tapazole (Methimazole) 5 Mg Tab 2.5 Mg PO DAILY Review of Systems Except as stated in HPI: all other systems reviewed are Neg Physical Exam Narrative GENERAL: Pleasant well-developed well-nourished female in no acute distress SKIN: Warm and dry. HEAD: Atraumatic. Normocephalic. EYES: Pupils equal and round. No scleral icterus. No injection or drainage. ENT: No nasal bleeding or discharge. Mucous membranes pink and moist. NECK: Trachea midline. No JVD. CARDIOVASCULAR: Regular rate and rhythm. No murmur appreciated. RESPIRATORY: No accessory muscle use. Clear to auscultation. Breath sounds equal bilaterally. GASTROINTESTINAL: Abdomen soft, non-tender, nondistended. Hepatic and splenic margins not palpable. MUSCULOSKELETAL: No obvious deformities. No clubbing. No cyanosis. No edema. NEUROLOGICAL: Awake and alert. No obvious cranial nerve deficits. Motor grossly within normal limits. Normal speech. PSYCHIATRIC: Appropriate mood and affect; insight and judgment normal. Data Data Last Documented VS Vital Signs Date Time Temp Pulse Resp B/P (MAP) Pulse Ox O2 Delivery O2 Flow Rate FiO2 11/09/17 00:30 72 18 93/57 (69) 97 Room Air 11/08/17 22:19 98.7 Orders Orders Electrocardiogram (11/08/17 22:37) Basic Metabolic Panel (Bmp) (11/08/17 22:37) Ckmb (Isoenzyme) Profile (11/08/17 22:37) Complete Blood Count With Diff (11/08/17 22:37) D-Dimer (11/08/17 22:37) Magnesium (Mg) (11/08/17 22:37) Prothrombin Time / Inr (Pt) (11/08/17 22:37) Act Partial Throm Time (Ptt) (11/08/17 22:37) Troponin I (11/08/17 22:37) Chest, Single Ap (11/08/17 22:37) Ecg Monitoring (11/08/17 22:37) Bilateral Bp Monitoring (11/08/17 22:37) Iv Access Insert/Monitor (11/08/17 22:37) Oximetry (11/08/17 22:37) Oxygen Administration (11/08/17 22:37) Aspirin Chew (Aspirin Chew) (11/08/17 22:45) Sodium Chloride 0.9% Flush (Ns Flush) (11/08/17 22:45) Nitroglycerin Sl (Nitrostat Sl) (11/08/17 22:45) Lorazepam Inj (Ativan Inj) (11/08/17 23:00) Troponin I (11/09/17 01:30) Admit Order (Ed Use Only) (11/09/17 02:13) Labs Laboratory Tests Test 11/08/17 22:41 11/09/17 01:35 White Blood Count 6.8 TH/MM3 Red Blood Count 4.30 MIL/MM3 Hemoglobin 12.5 GM/DL Hematocrit 37.0 % Mean Corpuscular Volume 86.1 FL Mean Corpuscular Hemoglobin 29.1 PG Mean Corpuscular Hemoglobin Concent 33.9 % Red Cell Distribution Width 13.8 % Platelet Count 170 TH/MM3 Mean Platelet Volume 8.6 FL Neutrophils (%) (Auto) 58.0 % Lymphocytes (%) (Auto) 32.1 % Monocytes (%) (Auto) 7.0 % Eosinophils (%) (Auto) 2.6 % Basophils (%) (Auto) 0.3 % Neutrophils # (Auto) 3.9 TH/MM3 Lymphocytes # (Auto) 2.2 TH/MM3 Monocytes # (Auto) 0.5 TH/MM3 Eosinophils # (Auto) 0.2 TH/MM3 Basophils # (Auto) 0.0 TH/MM3 CBC Comment DIFF FINAL Differential Comment Prothrombin Time 10.3 SEC Prothromb Time International Ratio 1.0 RATIO Activated Partial Thromboplast Time 26.8 SEC D-Dimer Quantitative (PE/DVT) 0.29 MG/L FEU Blood Urea Nitrogen 16 MG/DL Creatinine 0.73 MG/DL Random Glucose 107 MG/DL Calcium Level 8.9 MG/DL Magnesium Level 2.1 MG/DL Sodium Level 140 MEQ/L Potassium Level 4.1 MEQ/L Chloride Level 107 MEQ/L Carbon Dioxide Level 28.0 MEQ/L Anion Gap 5 MEQ/L Estimat Glomerular Filtration Rate 82 ML/MIN Total Creatine Kinase 77 U/L Troponin I LESS THAN 0.02 NG/ML LESS THAN 0.02 NG/ML MDM Medical Decision Making Medical Screen Exam Complete: Yes Emergency Medical Condition: Yes Medical Record Reviewed: Yes Differential Diagnosis Angina, acute coronary syndrome, pneumothorax, pulmonary embolism, pericarditis , myocarditis Narrative Course The patient was placed on ECG monitoring pulse oximetry. Twelve-lead EKG was obtained revealing sinus rhythm. The patient be given 243 mg of aspirin. She will be given sublingual nitroglycerin. Lab work, chest x-ray has been ordered. At the end of My shift the patient was signed out To Dr. Fernández pending lab work and imaging studies. Toro Ibarra Nov 08, 2017 22:44
[2017-11-08] MEDS ORDERED: SODIUM CHLORIDE 0.9% FLUSH 10 ML FLUSH IVF PRN (22:45)
[2017-11-08] MEDS ORDERED: ASPIRIN 81 MG CHEW TAB PO ONE (22:45)
[2017-11-08 22:46] VITALS: RESP 18; O2SAT 97
[2017-11-08 22:47] VITALS: BP 126/79; PULSE 86; RESP 18; O2SAT 97
[2017-11-08] MEDS: NITROGLYCERIN 0.4 MG SL 25 TABS/BTL SL SCH ×3 (22:48→23:02)
[2017-11-08 22:56] LABS: AUTOMATED NEUTROPHIL # 3.9 TH/MM3 (1.8-7.7); BASOPHIL % 0.3 % (0.0-2.0); EOSINOPHIL # 0.2 TH/MM3 (0-0.4); EOSINOPHIL % 2.6 % (0.0-4.0); HEMOGLOBIN 12.5 GM/DL (11.6-15.3); LYMPH % 32.1 % (9.0-44.0); LYMPHOCYTE # 2.2 TH/MM3 (1.0-4.8); MEAN CELL VOLUME 86.1 FL (80.0-100.0); MEAN CORPUSCULAR HEMOGLOBIN 29.1 PG (27.0-34.0); MEAN CORPUSCULAR HGB CONC 33.9 % (32.0-36.0); MEAN PLATELET VOLUME 8.6 FL (7.0-11.0); MONOCYTE # 0.5 TH/MM3 (0-0.9); PLATELET COUNT 170 TH/MM3 (150-450); RED CELL DISTRIBUTION WIDTH 13.8 % (11.6-17.2); WHITE BLOOD COUNT 6.8 TH/MM3 (4.0-11.0)
--- NOTE | 2017-11-08 22:57 | RADRPT ---
EXAM DATE/TIME: 11/08/2017 22:39 [facility] COMPARISON: CHEST SINGLE AP, May 21, 2017, 5:52. INDICATIONS : Upper anterior chest, neck and left arm MEDICAL HISTORY : Gastroesophageal reflux disease. Carcinoma, breast. Lymphoma. SURGICAL HISTORY : Cholecystectomy. Hysterectomy. ENCOUNTER: Initial ACUITY: 1 day PAIN SCORE: 10/10 LOCATION: chest FINDINGS: No new focal pleural or parenchymal opacities. The cardiomediastinal contours are unremarkable. Osse ous structures are intact. CONCLUSION: 1. No acute abnormality or significant interval change. Spenser Antonio MD on November 08, 2017 at 22:55 Board Certified Radiologist. This report was verified electronically.
[2017-11-08] MEDS ORDERED: LORazepam 2 MG/ML VIAL IV PUSH ONE (23:00)
[2017-11-08 23:16] LABS: PROTHROMBIN TIME - PATIENT 10.3 SEC (9.8-11.6)
[2017-11-08 23:19] LABS: D-DIMER 0.29 MG/L FEU (0.00-0.50)
[2017-11-08 23:30] VITALS: BP 88/52; PULSE 82; RESP 18; O2SAT 97
[2017-11-08 23:41] LABS: BLOOD UREA NITROGEN 16 MG/DL (7-18); CALCIUM 8.9 MG/DL (8.5-10.1); CHLORIDE 107 MEQ/L (98-107); CREATININE 0.73 MG/DL (0.50-1.00); GLOMERULAR FILTRATION RATE 82 ML/MIN (>89); GLUCOSE,RANDOM 107 MG/DL (74-106); SODIUM (NA) 140 MEQ/L (136-145)
[2017-11-08 23:49] LABS: MAGNESIUM 2.1 MG/DL (1.5-2.5); TROPONIN I LESS THAN 0.02 NG/ML (0.02-0.05)
[2017-11-09] VITALS (8 sets, daily range): BP systolic 93–119; BP diastolic 57–70; PULSE 70–94; RESP 18–20; TEMP 97.8–97.9; O2SAT 96–99
[2017-11-09] MEDS ORDERED: SODIUM CHLORIDE 0.9% FLUSH 10 ML FLUSH IV FLUSH PRN (02:15)
[2017-11-09 05:26] LABS: TROPONIN I LESS THAN 0.02 NG/ML (0.02-0.05)
[2017-11-09] MEDS ORDERED: MORPHINE SULFATE 2 MG/ML INJ IV PUSH ONE (06:30)
[2017-11-09] MEDS ORDERED: ONDANSETRON HCL 4 MG/2 ML VIAL IV PUSH PRN (07:45)
[2017-11-09] MEDS ORDERED: ACETAMINOPHEN 500 MG CPLT PO PRN (07:45)
[2017-11-09] MEDS ORDERED: NITROGLYCERIN 0.4 MG SL 25 TABS/BTL SL PRN (07:45)
--- NOTE | 2017-11-09 08:42 | HHI.HP ---
[facility] Primary Care Physician Berny Sheikh MD Chief Complaint Chest pain History of Present Illness 57 year old female with history of recent ablation 10/17/[address] Feldman present to ER for further evaluation of chest pain. Onset 3 PM, nonexertional. Location generalized. Characterized pressure. Radiation left shoulder. Associated symptoms include hurt with Inspiration. Denied nausea, vomiting or diaphoresis. Duration constant. No known precipitating or relieving factors. Denies similar pain in the past. Endorses recent cardiac ablation 10/17/[address] Feldman. Reporting ablation completed due to continued frequent PACs. Awaiting a referral to an EP specializist in [place], [place] for additional cardiac ablation. Continues to have chest discomfort as stated, however also reports epigastric pain immediately after receiving morphine. Reports discomfort reminds her of discomfort she felt when having pancreatitis. Review of Systems General: No fatigue,weakness, fever, chills, recent illness in the past 4-6 weeks. Recent cardiac ablation. HEENT: No POWER, no vision changes, no nasal congestion or drainage, no dysphasia CV: Continues to have chest pain as stated above, made worse with inspiration. Denied any feelings of palpitations or dizziness during onset of chest discomfort. RESP: No SOB, cough, wheeze, or recent URI. Deep breaths makes pain worse. GI: Epigastric pain after receiving morphine. Pain constant. No nausea, vomiting , bowel changes, diarrhea, constipation, or distention. Endorses 20 pounds weight loss since April 2017, reports "poor appetite since heart problems began." Appetite improving since cardiac ablation 3 weeks ago. : No dysuria, urgency, frequency EXT: No lower leg edema, no paraesthesias MS: No discomfort or change in ROM NEURO: No difficulty with balance, LOC, motor/sensory deficits PSYCH: History anxiety, xanax prn reports rarely uses. No depression SKIN: No rashes, no concerning lesions Past Family Social History Allergies: Coded Allergies: codeine (Unverified Allergy, Intermediate, NASUSEA/VOMITING, 11/08/17) adhesive (Unverified Adverse Reaction, Unknown, RASH, 11/08/17) Past Medical History Breast cancer (remission since 1997), Hodgkin's lymphoma (remission 2001), mitral valve prolapse, GERD, hyperthyroidism, chronic back pain, migraines, vertigo Past Surgical History Hysterectomy, cholecystectomy and appendectomy, lumpectomy Reported Medications Reported Meds & Active Scripts Active Ultram (Tramadol HCl) 50 Mg Tab 50 Mg PO Q8H PRN Protonix (Pantoprazole Sodium) 40 Mg Tab 40 Mg PO DAILY Aspirin EC (Aspirin) 81 Mg Tabdr 81 Mg PO DAILY 90 Days Alprazolam 0.5 Mg Tab 0.5 Mg PO Q6H PRN Flecainide (Flecainide Acetate) 50 Mg Tab 50 Mg PO BID Tapazole (Methimazole) 5 Mg Tab 2.5 Mg PO DAILY Active Ordered Medications Current Medications Medications (Trade) Dose Ordered Sig/Keiko Route Start Time Stop Time Status Last Admin (NS Flush) 2 ml UNSCH PRN IV FLUSH 11/09/17 02:15 (NS Flush) 2 ml BID IV FLUSH 11/09/17 09:00 (Tylenol) 500 mg Q4H PRN PO 11/09/17 07:45 (Zofran Inj) 4 mg Q6H PRN IV PUSH 11/09/17 07:45 (Nitrostat Sl) 0.4 mg Q5M PRN SL 11/09/17 07:45 (Aspirin) 325 mg DAILY PO 11/09/17 09:00 Family History Noncontributory for early onset cardiovascular disease Social History No known hypertension, hyperlipidemia, or diabetes. Known mild coronary artery disease and one. Placed on statin therapy, recently instructed by Dr. Feldman to hold therapy at this time. Lifelong nonsmoker. Denies any alcohol use. . Endorses sedentary lifestyle. Past cardiac testing 05/08/2017 Cardiac catheterization (Dr. Raymond) Conclusions 1. Angiographically mild one-vessel coronary disease and right dominant system as detailed above. 2. Normal LV systolic function with ejection fraction 65%. 3. History of V. tach. 4. Recommend follow-up with Dr. Feldman for further evaluation and management of arrhythmia. Follows with Dr. Raymond and Dr. Feldman. Physical Exam Vital Signs Vital Signs Date Time Temp Pulse Resp B/P (MAP) Pulse Ox O2 Delivery O2 Flow Rate FiO2 11/09/17 07:50 97.8 94 20 119/65 (83) 99 11/09/17 06:48 115/70 (85) 11/09/17 03:34 70 11/09/17 03:26 98 11/09/17 03:03 97.9 73 18 101/61 (74) 96 11/09/17 02:58 11/09/17 02:30 72 18 98/58 (71) 98 Room Air 11/09/17 00:30 72 18 93/57 (69) 97 Room Air 11/08/17 23:30 82 18 88/52 (64) 97 Room Air 11/08/17 22:47 86 18 126/79 (95) 97 Room Air 11/08/17 22:46 18 97 Room Air 11/08/17 22:46 97 Room Air 11/08/17 22:19 98.7 94 16 134/70 (91) 97 Physical Exam GENERAL: Alert WN, WD, NAD, pleasant, female HEAD: NC, AT CV: RRR, without murmur, rub, gallop, no JVD, S1-S2 no S3-S4. Chest wall nontender with palpation. RESP: Clear lungs throughout bilateral, no crackles, wheeze, rhonchi, symmetrical chest rise, nonlabored, able to speak in full sentences ABD: Soft, NT, ND, no masses, positive bowel tones, epigastric point tenderness with palpation EXT: Pulses +24, no dependent edema MS: Normal tone 4 extremities, no obvious deformities, full range of motion NEURO: CN II through CN XII grossly intact, motor strength 5/5 PSYCH: A+O 3, flat affect, appropriate speech, mood, insight and judgment SKIN: Normal turgor, normal texture, no lesions, no rashes, brisk cap refill, even hair distribution Laboratory Laboratory Tests Test 11/08/17 22:41 11/09/17 01:35 11/09/17 04:40 White Blood Count 6.8 Red Blood Count 4.30 Hemoglobin 12.5 Hematocrit 37.0 Mean Corpuscular Volume 86.1 Mean Corpuscular Hemoglobin 29.1 Mean Corpuscular Hemoglobin Concent 33.9 Red Cell Distribution Width 13.8 Platelet Count 170 Mean Platelet Volume 8.6 Neutrophils (%) (Auto) 58.0 Lymphocytes (%) (Auto) 32.1 Monocytes (%) (Auto) 7.0 Eosinophils (%) (Auto) 2.6 Basophils (%) (Auto) 0.3 Neutrophils # (Auto) 3.9 Lymphocytes # (Auto) 2.2 Monocytes # (Auto) 0.5 Eosinophils # (Auto) 0.2 Basophils # (Auto) 0.0 CBC Comment DIFF FINAL Differential Comment Prothrombin Time 10.3 Prothromb Time International Ratio 1.0 Activated Partial Thromboplast Time 26.8 D-Dimer Quantitative (PE/DVT) 0.29 Blood Urea Nitrogen 16 Creatinine 0.73 Random Glucose 107 Calcium Level 8.9 Magnesium Level 2.1 Sodium Level 140 Potassium Level 4.1 Chloride Level 107 Carbon Dioxide Level 28.0 Anion Gap 5 Estimat Glomerular Filtration Rate 82 Total Creatine Kinase 77 34 Troponin I LESS THAN 0.02 LESS THAN 0.02 LESS THAN 0.02 Result Diagram: 11/08/17224011/08/172240 Imaging Last 48 hours Impressions Chest X-Ray 11/08/172236 Signed Impressions: Service Date/Time: October 22:39 - CONCLUSION: 1. No acute abnormality or significant interval change. Spenser Antonio MD Course EKG 1st AVB, nonspecific t waves Caprini VTE Risk Assessment Caprini VTE Risk Assessment: No/Low Risk (score <= 1) Caprini Risk Assessment Model Point Value = 1 Point Value = 2 Point Value = 3 Point Value = 5 Age 41-60 Minor surgery BMI > 25 kg/m2 Swollen legs Varicose veins or History of unexplained or recurrent spontaneous Oral contraceptives or hormone replacement Sepsis (< 1 month) Serious lung disease, including pneumonia (< 1 month) Abnormal pulmonary function Acute myocardial infarction Congestive heart failure (< 1 month) History of inflammatory bowel disease Medical patient at bed rest Age 61-74 Arthroscopic surgery Major open surgery (> 45 min) Laparoscopic surgery (> 45 min) Malignancy Confined to bed (> 72 hours) Immobilizing plaster cast Central venous access Age >= 75 History of VTE Family history of VTE Factor V Leiden Prothrombin [id number] Lupus anticoagulant Anticardiolipin antibodies Elevated serum homocysteine Heparin-induced thrombocytopenia Other congenital or acquired thrombophilia Stroke (< 1 month) Elective arthroplasty Hip, pelvis, or leg fracture Acute spinal cord injury (< 1 month) Prophylaxis Regimen Total Risk Factor Score Risk Level Prophylaxis Regimen 0-1 Low Early ambulation 2 Moderate Order ONE of the following: *Sequential Compression Device (SCD) *Heparin 5000 units SQ BID 3-4 Higher Order ONE of the following medications: *Heparin 5000 units SQ TID *Enoxaparin/Lovenox 40 mg SQ daily (WT < 150 kg, CrCl > 30 mL/min) *Enoxaparin/Lovenox 30 mg SQ daily (WT < 150 kg, CrCl > 10-29 mL/min) *Enoxaparin/Lovenox 30 mg SQ BID (WT < 150 kg, CrCl > 30 mL/min) AND/OR *Sequential Compression Device (SCD) 5 or more Highest Order ONE of the following medications: *Heparin 5000 units SQ TID (Preferred with Epidurals) *Enoxaparin/Lovenox 40 mg SQ daily (WT < 150 kg, CrCl > 30 mL/min) *Enoxaparin/Lovenox 30 mg SQ daily (WT < 150 kg, CrCl > 10-29 mL/min) *Enoxaparin/Lovenox 30 mg SQ BID (WT < 150 kg, CrCl > 30 mL/min) AND *Sequential Compression Device (SCD) Assessment and Plan Assessment and Plan #1 Atypical chest pain-admitted chest pain center. Ruled out with 3 sets of EKGs, cardiac enzymes, monitor on telemetry overnight. Will be seen and evaluated by Dr. Albaro Erwin. Discussed likely no further cardiac testing, due to recent cardiac catheterization April 2017 one-vessel mild coronary artery disease. D-dimer normal. #2 History of cardiac arrhythmia-continue flecainide #3 History of anxiety-continue Xanax #4 History of GERD-continue Protonix [address] Dr Feldman's office received. Dr. Feldman made aware of patient arrival to chest pain center, seen and evaluated by Dr. Erwin, and has been ruled out with 3 sets of EKG and cardiac enzymes. Dr. Feldman okay with discharge as planned. Jovita Leavitt Nov 09, 2017 08:42
[2017-11-09] MEDS ORDERED: ALPRAZolam 0.5 MG TAB PO PRN (08:45)
[2017-11-09] MEDS ORDERED: FLECAINIDE ACETATE 100 MG TAB PO SCH (09:00)
[2017-11-09] MEDS ORDERED: PILL SPLITTER OTHER PRN (09:00)
[2017-11-09] MEDS ORDERED: ASPIRIN 325 MG TAB PO SCH (09:00)
[2017-11-09] MEDS ORDERED: ASPIRIN EC 81 MG TABEC PO SCH (09:00)
[2017-11-09] MEDS ORDERED: PANTOPRAZOLE SOD 40 MG DELAYED RELEASE TAB PO SCH (09:00)
[2017-11-09] MEDS ORDERED: SODIUM CHLORIDE 0.9% FLUSH 10 ML FLUSH IV FLUSH SCH (09:00)
[2017-11-09] MEDS ORDERED: METHIMAZOLE 5 MG TAB PO SCH (09:00)
--- NOTE | 2017-11-09 09:58 | PD.CARD.PN ---
Subjective Subjective Remarks Patient was seen by nurse practitioner and then discussed. I then reviewed history and physical examination with the patient. I am in agreement with the documentation as entered by nurse practitioner She has a complex history including lymphoma non-Hodgkin's type, breast cancer, recurring episodes of ventricular tachycardia and PACs having undergone ablation therapy with Dr. Zuniga. She also had a catheterization in 2017 which showed no significant coronary disease. She is being referred to a physician in the [place] area for further ablation. Her current chest pain started rather suddenly was diffuse in the upper chest and associated with a sense of shortness of breath but no cough. The pain is now present only with deep inspiration but remains relatively severe. She has a negative d-dimer at the time of this exam Objective Medications Current Medications Medications (Trade) Dose Ordered Sig/Keiko Route Start Time Stop Time Status Last Admin (NS Flush) 2 ml UNSCH PRN IV FLUSH 11/09/17 02:15 (NS Flush) 2 ml BID IV FLUSH 11/09/17 09:00 11/09/17 09:28 (Tylenol) 500 mg Q4H PRN PO 11/09/17 07:45 (Zofran Inj) 4 mg Q6H PRN IV PUSH 11/09/17 07:45 (Nitrostat Sl) 0.4 mg Q5M PRN SL 11/09/17 07:45 (Xanax) 0.5 mg Q6H PRN PO 11/09/17 08:45 11/09/17 09:27 (Ecotrin Ec) 81 mg DAILY PO 11/09/17 09:00 11/09/17 09:27 (Tambocor) 50 mg BID PO 11/09/17 09:00 11/09/17 09:27 (Tapazole) 2.5 mg DAILY PO 11/09/17 09:00 11/09/17 09:28 (Protonix) 40 mg DAILY PO 11/09/17 09:00 11/09/17 09:27 (Pill Splitter) 1 ea UNSCH PRN OTHER 11/09/17 09:00 11/09/17 09:28 Vital Signs / I&O Vital Signs Date Time Temp Pulse Resp B/P (MAP) Pulse Ox O2 Delivery O2 Flow Rate FiO2 11/09/17 07:50 97.8 94 20 119/65 (83) 99 11/09/17 06:48 115/70 (85) 11/09/17 03:34 70 11/09/17 03:26 98 11/09/17 03:03 97.9 73 18 101/61 (74) 96 11/09/17 02:58 11/09/17 02:30 72 18 98/58 (71) 98 Room Air 11/09/17 00:30 72 18 93/57 (69) 97 Room Air 11/08/17 23:30 82 18 88/52 (64) 97 Room Air 11/08/17 22:47 86 18 126/79 (95) 97 Room Air 11/08/17 22:46 18 97 Room Air 11/08/17 22:46 97 Room Air 11/08/17 22:19 98.7 94 16 134/70 (91) 97 Physical Exam Well-nourished well-developed lady who does seem to be somewhat anxious. Skin is warm and dry Chest shows some scarring from previous interventions there is no tenderness breath sounds are intact and no rales wheezes or rhonchi Cardiac exam reveals a regular rhythm and no rubs or murmurs are appreciated Laboratory Laboratory Tests Test 11/08/17 22:41 11/09/17 01:35 11/09/17 04:40 White Blood Count 6.8 TH/MM3 Red Blood Count 4.30 MIL/MM3 Hemoglobin 12.5 GM/DL Hematocrit 37.0 % Mean Corpuscular Volume 86.1 FL Mean Corpuscular Hemoglobin 29.1 PG Mean Corpuscular Hemoglobin Concent 33.9 % Red Cell Distribution Width 13.8 % Platelet Count 170 TH/MM3 Mean Platelet Volume 8.6 FL Neutrophils (%) (Auto) 58.0 % Lymphocytes (%) (Auto) 32.1 % Monocytes (%) (Auto) 7.0 % Eosinophils (%) (Auto) 2.6 % Basophils (%) (Auto) 0.3 % Neutrophils # (Auto) 3.9 TH/MM3 Lymphocytes # (Auto) 2.2 TH/MM3 Monocytes # (Auto) 0.5 TH/MM3 Eosinophils # (Auto) 0.2 TH/MM3 Basophils # (Auto) 0.0 TH/MM3 CBC Comment DIFF FINAL Differential Comment Prothrombin Time 10.3 SEC Prothromb Time International Ratio 1.0 RATIO Activated Partial Thromboplast Time 26.8 SEC D-Dimer Quantitative (PE/DVT) 0.29 MG/L FEU Blood Urea Nitrogen 16 MG/DL Creatinine 0.73 MG/DL Random Glucose 107 MG/DL Calcium Level 8.9 MG/DL Magnesium Level 2.1 MG/DL Sodium Level 140 MEQ/L Potassium Level 4.1 MEQ/L Chloride Level 107 MEQ/L Carbon Dioxide Level 28.0 MEQ/L Anion Gap 5 MEQ/L Estimat Glomerular Filtration Rate 82 ML/MIN Total Creatine Kinase 77 U/L 34 U/L Troponin I LESS THAN 0.02 NG/ML LESS THAN 0.02 NG/ML LESS THAN 0.02 NG/ML Imaging Last 24 hours Impressions Chest X-Ray 11/08/17 9913 Signed Impressions: Service Date/Time: October 22:39 - CONCLUSION: 1. No acute abnormality or significant interval change. Spenser Antonio MD Assessment and Plan Problem List: (1) Chest pain ICD Codes: R07.9 - Chest pain, unspecified Status: Acute Plan: We will rule out ACS with standard chest pain protocol. We will also attempt to contact Dr. Feldman to make him aware of the patient's current problems and determine how he would prefer to manage. (2) Personal history of cardiac arrhythmia ICD Codes: Z86.79 - Personal history of other diseases of the circulatory system Status: Acute Albaro Erwin MD Nov 09, 2017 09:58
--- NOTE | 2017-11-09 11:02 | HHI.DCPOC ---
Discharge Care Plan Diagnosis: (1) Atypical chest pain Goals to Promote Your Health * To prevent worsening of your condition and complications * To maintain your health at the optimal level Directions to Meet Your Goals Take your medications as prescribed Follow your dietary instruction Follow activity as directed Keep your appointments as scheduled Take your immunizations and boosters as scheduled If your symptoms worsen call your PCP, if no PCP go to Urgent Care Center or Emergency Room Smoking is Dangerous to Your Health. Avoid second hand smoke Call the 24-hour hour crisis hotline for domestic abuse at Jovita Leavitt Nov 09, 2017 11:01
--- NOTE | 2017-11-09 17:43 | EKG ---
Date Performed: 11/09/2017 Time Performed: 01:33:11 PTAGE: 57 years EKG: Sinus rhythm NONSPECIFIC T-WAVE ABNORMALITY BORDERLINE ECG NO SIG CHANGE PREVIOUS TRACING : 11/08/2017 22.40 DOCTOR: Albaro Erwin Interpretating Date/Time 11/09/2017 17:41:43
--- NOTE | 2017-11-09 17:43 | EKG ---
Date Performed: 11/09/2017 Time Performed: 05:10:20 PTAGE: 57 years EKG: Sinus rhythm WITH FIRST DEGREE AV BLOCK NONSPECIFIC T-WAVE ABNORMALITY ABNORMAL ECG PREVIOUS TRACING : 11/09/2017 05.08 DOCTOR: Albaro Erwin Interpretating Date/Time 11/12/2017 07:00:17
--- NOTE | 2017-11-09 17:44 | EKG ---
Date Performed: 11/08/2017 Time Performed: 22:40:49 PTAGE: 57 years EKG: Sinus rhythm NONSPECIFIC T-WAVE ABNORMALITY BORDERLINE ECG NO CHANGE PREVIOUS TRACING : 11/08/2017 22.31 DOCTOR: Albaro Erwin Interpretating Date/Time 11/09/2017 17:42:35
== END 2017-11-09 11:49 | disposition home or self-care (01) ==
LOC: NEPC 22:19 → NEDA 11-09 02:15 → NEPFCDU 11-09 02:48
PROVIDERS: ADMIT Internal Medicine Interventional Cardiology; ATTEND Internal Medicine Interventional Cardiology
DX: R07.89 Other chest pain (principal); R06.02 Shortness of breath; I49.9 Cardiac arrhythmia, unspecified; I44.0 Atrioventricular block, first degree; R94.31 Abnormal electrocardiogram [ECG] [EKG]; R10.13 Epigastric pain; I25.10 Atherosclerotic heart disease of native coronary artery without angina pectoris; E03.9 Hypothyroidism, unspecified; I34.1 Nonrheumatic mitral (valve) prolapse; K21.9 Gastro-esophageal reflux disease without esophagitis; F41.9 Anxiety disorder, unspecified; Z85.3 Personal history of malignant neoplasm of breast; Z85.71 Personal history of Hodgkin lymphoma; Z79.899 Other long term (current) drug therapy; Z79.82 Long term (current) use of aspirin
CPT/HCPCS: 71045; 80048; 82550; 83735; 84484; 85025; 85379; 85610; 85730; 93005; 96374; 99285; G0378; J2270

== ENCOUNTER 2018-01-19 18:25 | Emergency (ER) | payer BC ==
[2018-01-19 18:25] VITALS: BP 115/74; PULSE 84; RESP 14; TEMP 98.7; O2SAT 98
[~2018-01-19 18:25] MED LIST changes: +ALPR0.5T3 PO; -ATOR20TA15 PO; -CARA1TAB6 PO; -OMEP20TA93 PO
[2018-01-19 18:30] VITALS: O2SAT 98
--- NOTE | 2018-01-19 18:32 | PD ---
HPI Chief Complaint: Chest pain, dizziness Time Seen by Provider: 18:32 Travel History International Travel<30 days: No Contact w/Intl Traveler<30days: No Traveled to known affect area: No History of Present Illness HPI 57-year-old female came to the emergency room with history of lightheadedness, dizziness, chest pain radiating down her left arm for past 2-3 days. Patient says that she has history of PVCs and cardiac arrhythmia for which she has required cardiac ablation as well as cardiac catheterization April 2017. The cardiac catheterization did not show any significant blockage. Her corporate sales representative have been Dr. Raymond, Dr. Moreno and Dr. Feldman. Patient is on flecainide. She gets PVCs on a frequent basis but the flecainide helps. However since the symptoms started for past 2 days she has been concerned and hence came to the emergency room. She did not tell her corporate sales representative about this. Vital signs are otherwise stable. No history of syncopal episode. No aggravating or relieving factors identified. She describes the chest pain all across her chest and then radiating down her left arm. Currently it is 2 out of 10. [facility] Past Medical History Narrative Medical List of her past medical, surgical, social and family history reviewed from the nursing note Hx Anticoagulant Therapy: Yes (Aspirin) Arthritis: No Heart Rhythm Problems: Yes (HX OF VTACH) Cancer: Yes (BREAST CANCER 1997, HODGKINS LYMPHOMA 2001) Cardiac Catheterization: Yes (APR 2017, ABLATION SEP 2017) Cardiovascular Problems: Yes (PVC, Mitral Valve Prolapse) High Cholesterol: No Chemotherapy: Yes (2001) Chest Pain: Yes (CHEST PAIN) Congestive Heart Failure: No Cerebrovascular Accident: No Diabetes: No Diminished Hearing: No Endocrine: Yes Gastrointestinal Disorders: Yes GERD: Yes (GERD) Genitourinary: Yes Headaches: No Hypertension: No Musculoskeletal: Yes (BAD BACK, LEFT KNEE SURGERY ) Neurologic: No Psychiatric: No Reproductive: Yes (TOTAL HYSTERECTOMY) Respiratory: No Immunizations Current: Yes Migraines: Yes Radiation Therapy: Yes Seizures: No Sickle Cell Disease: No Thyroid Disease: Yes (HYPERTHYROID) Menopausal: Yes Past Surgical History Abdominal Surgery: Yes (Gall bladder removal) AICD: No Appendectomy: Yes Arteriovenous Shunt: No Body Medical Devices: surgical clamps from breast surgery Cardiac Surgery: No Cholecystectomy: Yes Ear Surgery: No Endocrine Surgery: No Eye Surgery: No Gynecologic Surgery: Yes (Total hysterectomy) Hysterectomy: Yes Insulin Pump: No Joint Replacement: No Oral Surgery: No Pacemaker: No Thoracic Surgery: No Tonsillectomy: Yes (AND ADENOIDS) Other Surgery: Yes (Lumpectomy with nodes) Social History Alcohol Use: No Tobacco Use: No Substance Use: No Allergies-Medications (Allergen,Severity, Reaction): Coded Allergies: codeine (Unverified Allergy, Intermediate, NASUSEA/VOMITING, 11/08/17) adhesive (Unverified Adverse Reaction, Unknown, RASH, 11/08/17) Comments List of her allergies reviewed from the nursing note Reported Meds & Prescriptions Reported Meds & Active Scripts Active Aspirin EC (Aspirin) 81 Mg Tabdr 81 Mg PO DAILY 90 Days Reported Omeprazole 20 Mg Tab 20 Mg PO EVERY OTHER DAY Atorvastatin (Atorvastatin Calcium) 20 Mg Tab 20 Mg PO HS Alprazolam 0.5 Mg Tab 0.5 Tab PO Q6H PRN Flecainide (Flecainide Acetate) 50 Mg Tab 100 Mg PO BID Tapazole (Methimazole) 5 Mg Tab 5 Mg PO DAILY Narrative Medication List of her home medications reviewed from the nursing note Review of Systems Except as stated in HPI: all other systems reviewed are Neg Cardiovascular: Positive: Chest Pain or Discomfort, Palpitations Neurologic: Positive: Dizziness Physical Exam Narrative GENERAL: Awake, alert, anxious, mild distress SKIN: Focused skin assessment warm/dry. HEAD: Atraumatic. Normocephalic. EYES: Pupils equal and round. No scleral icterus. No injection or drainage. ENT: No nasal bleeding or discharge. Mucous membranes pink and moist. NECK: Trachea midline. No JVD. CARDIOVASCULAR: Regular rate and rhythm. No murmur appreciated. RESPIRATORY: No accessory muscle use. Clear to auscultation. Breath sounds equal bilaterally. GASTROINTESTINAL: Abdomen soft, non-tender, nondistended. Hepatic and splenic margins not palpable. MUSCULOSKELETAL: No obvious deformities. No clubbing. No cyanosis. No edema. NEUROLOGICAL: Awake and alert. No obvious cranial nerve deficits. Motor grossly within normal limits. Normal speech. PSYCHIATRIC: Appropriate mood and affect; insight and judgment normal. Data Data Last Documented VS Orders Orders Electrocardiogram (01/19/18 18:38) Basic Metabolic Panel (Bmp) (01/19/18 18:38) B-Type Natriuretic Peptide (01/19/18 18:38) Complete Blood Count With Diff (01/19/18 18:38) Magnesium (Mg) (01/19/18 18:38) Prothrombin Time / Inr (Pt) (01/19/18 18:38) Troponin I (01/19/18 18:38) Chest, Single Ap (01/19/18 18:38) Ecg Monitoring (01/19/18 18:38) Bilateral Bp Monitoring (01/19/18 18:38) Iv Access Insert/Monitor (01/19/18 18:38) Oximetry (01/19/18 18:38) Oxygen Administration (01/19/18 18:38) Sodium Chloride 0.9% Flush (Ns Flush) (01/19/18 18:45) Ed Discharge Order (01/19/18 19:35) Labs Laboratory Tests Test 01/19/18 18:40 White Blood Count 6.0 TH/MM3 Red Blood Count 4.78 MIL/MM3 Hemoglobin 13.6 GM/DL Hematocrit 40.9 % Mean Corpuscular Volume 85.5 FL Mean Corpuscular Hemoglobin 28.4 PG Mean Corpuscular Hemoglobin Concent 33.3 % Red Cell Distribution Width 12.5 % Platelet Count 210 TH/MM3 Mean Platelet Volume 9.3 FL Neutrophils (%) (Auto) 62.2 % Lymphocytes (%) (Auto) 27.8 % Monocytes (%) (Auto) 7.2 % Eosinophils (%) (Auto) 2.3 % Basophils (%) (Auto) 0.5 % Neutrophils # (Auto) 3.8 TH/MM3 Lymphocytes # (Auto) 1.7 TH/MM3 Monocytes # (Auto) 0.4 TH/MM3 Eosinophils # (Auto) 0.1 TH/MM3 Basophils # (Auto) 0.0 TH/MM3 CBC Comment DIFF FINAL Differential Comment Prothrombin Time 10.0 SEC Prothromb Time International Ratio 1.0 RATIO Blood Urea Nitrogen 19 MG/DL Creatinine 0.70 MG/DL Random Glucose 112 MG/DL Calcium Level 9.2 MG/DL Magnesium Level 2.4 MG/DL Sodium Level 141 MEQ/L Potassium Level 3.6 MEQ/L Chloride Level 107 MEQ/L Carbon Dioxide Level 28.7 MEQ/L Anion Gap 5 MEQ/L Estimat Glomerular Filtration Rate 86 ML/MIN Troponin I LESS THAN 0.02 NG/ML B-Type Natriuretic Peptide 15 PG/ML MDM Medical Decision Making Medical Screen Exam Complete: Yes Emergency Medical Condition: Yes Medical Record Reviewed: Yes Interpretation(s) Twelve-lead EKG was reviewed by me. Normal sinus rhythm, normal axis, nonspecific ST-T wave changes. Heart rate of 78 bpm. Differential Diagnosis Electrolyte abnormality, cardiac arrhythmia Narrative Course 6:42 PM blood test has been ordered. Awaiting for the blood test result. Case will be signed over to the oncoming ER physician. Procedures EKG Prior to Arrival: Annalise Hayes MD January 19, 2018 18:32
[2018-01-19] MEDS ORDERED: OMEP20TA93 PO (18:44)
[2018-01-19] MEDS ORDERED: ATOR20TA15 PO (18:44)
[2018-01-19] MEDS ORDERED: SODIUM CHLORIDE 0.9% FLUSH 10 ML FLUSH IVF PRN (18:45)
[2018-01-19 18:52] LABS: AUTOMATED NEUTROPHIL # 3.8 TH/MM3 (1.8-7.7); BASOPHIL % 0.5 % (0.0-2.0); EOSINOPHIL # 0.1 TH/MM3 (0-0.4); EOSINOPHIL % 2.3 % (0.0-4.0); HEMATOCRIT 40.9 % (35.0-46.0); HEMOGLOBIN 13.6 GM/DL (11.6-15.3); LYMPH % 27.8 % (9.0-44.0); LYMPHOCYTE # 1.7 TH/MM3 (1.0-4.8); MEAN CELL VOLUME 85.5 FL (80.0-100.0); MEAN CORPUSCULAR HEMOGLOBIN 28.4 PG (27.0-34.0); MEAN CORPUSCULAR HGB CONC 33.3 % (32.0-36.0); MEAN PLATELET VOLUME 9.3 FL (7.0-11.0); MONO % 7.2 % (0.0-8.0); MONOCYTE # 0.4 TH/MM3 (0-0.9); NEUT % 62.2 % (16.0-70.0); PLATELET COUNT 210 TH/MM3 (150-450); RED BLOOD COUNT 4.78 MIL/MM3 (4.00-5.30); RED CELL DISTRIBUTION WIDTH 12.5 % (11.6-17.2)
[2018-01-19 19:00] LABS: CHLORIDE 107 MEQ/L (98-107); SODIUM (NA) 141 MEQ/L (136-145)
[2018-01-19 19:02] LABS: CALCIUM 9.2 MG/DL (8.5-10.1)
[2018-01-19 19:03] LABS: BICARBONATE 28.7 MEQ/L (21.0-32.0); BLOOD UREA NITROGEN 19 MG/DL (7-18); GLUCOSE,RANDOM 112 MG/DL (74-106); MAGNESIUM 2.4 MG/DL (1.5-2.5)
--- NOTE | 2018-01-19 19:05 | RADRPT ---
EXAM DATE/TIME: 01/19/2018 18:41 [facility] COMPARISON: CHEST SINGLE AP, November 08, 2017, 22:39. INDICATIONS : Chest pain. MEDICAL HISTORY : Gastroesophageal reflux disease. Carcinoma, breast. Lymphoma. Arrythmia. SURGICAL HISTORY : Cholecystectomy. Hysterectomy. Cardiac ablation. ENCOUNTER: Initial ACUITY: 2 days PAIN SCORE: 2/10 LOCATION: Bilateral chest FINDINGS: A single view of the chest demonstrates the lungs to be symmetrically aerated without evidence of mas s, infiltrate or effusion. Chronic biapical scarring is noted. The cardiomediastinal contours are un remarkable. Osseous structures are intact. CONCLUSION: No acute cardiopulmonary disease. Danny Cerna MD on January 19, 2018 at 19:02 Board Certified Radiologist. This report was verified electronically.
[2018-01-19 19:06] LABS: GLOMERULAR FILTRATION RATE 86 ML/MIN (>89)
[2018-01-19 19:11] LABS: TROPONIN I LESS THAN 0.02 NG/ML (0.02-0.05)
[2018-01-19 19:29] VITALS: BP 118/65; PULSE 75; RESP 16; O2SAT 100
--- NOTE | 2018-01-19 19:34 | PD ---
Physical Exam Time Seen by Provider: 19:[address] Burton left this patient with me to check the results of the laboratory and likely discharge. Data Data Last Documented VS Vital Signs Date Time Temp Pulse Resp B/P (MAP) Pulse Ox O2 Delivery O2 Flow Rate FiO2 01/19/18 18:35 84 01/19/18 18:30 98 Room Air 01/19/18 18:25 98.7 14 115/74 (88) Orders Orders Electrocardiogram (01/19/18 18:38) Basic Metabolic Panel (Bmp) (01/19/18 18:38) B-Type Natriuretic Peptide (01/19/18 18:38) Complete Blood Count With Diff (01/19/18 18:38) Magnesium (Mg) (01/19/18 18:38) Prothrombin Time / Inr (Pt) (01/19/18 18:38) Troponin I (01/19/18 18:38) Chest, Single Ap (01/19/18 18:38) Ecg Monitoring (01/19/18 18:38) Bilateral Bp Monitoring (01/19/18 18:38) Iv Access Insert/Monitor (01/19/18 18:38) Oximetry (01/19/18 18:38) Oxygen Administration (01/19/18 18:38) Sodium Chloride 0.9% Flush (Ns Flush) (01/19/18 18:45) Labs Laboratory Tests Test 01/19/18 18:40 White Blood Count 6.0 TH/MM3 Red Blood Count 4.78 MIL/MM3 Hemoglobin 13.6 GM/DL Hematocrit 40.9 % Mean Corpuscular Volume 85.5 FL Mean Corpuscular Hemoglobin 28.4 PG Mean Corpuscular Hemoglobin Concent 33.3 % Red Cell Distribution Width 12.5 % Platelet Count 210 TH/MM3 Mean Platelet Volume 9.3 FL Neutrophils (%) (Auto) 62.2 % Lymphocytes (%) (Auto) 27.8 % Monocytes (%) (Auto) 7.2 % Eosinophils (%) (Auto) 2.3 % Basophils (%) (Auto) 0.5 % Neutrophils # (Auto) 3.8 TH/MM3 Lymphocytes # (Auto) 1.7 TH/MM3 Monocytes # (Auto) 0.4 TH/MM3 Eosinophils # (Auto) 0.1 TH/MM3 Basophils # (Auto) 0.0 TH/MM3 CBC Comment DIFF FINAL Differential Comment Prothrombin Time 10.0 SEC Prothromb Time International Ratio 1.0 RATIO Blood Urea Nitrogen 19 MG/DL Creatinine 0.70 MG/DL Random Glucose 112 MG/DL Calcium Level 9.2 MG/DL Magnesium Level 2.4 MG/DL Sodium Level 141 MEQ/L Potassium Level 3.6 MEQ/L Chloride Level 107 MEQ/L Carbon Dioxide Level 28.7 MEQ/L Anion Gap 5 MEQ/L Estimat Glomerular Filtration Rate 86 ML/MIN Troponin I LESS THAN 0.02 NG/ML B-Type Natriuretic Peptide 15 PG/ML [facility] Medical Record Reviewed: Yes Supervised Visit with CUATE: Yes Interpretation(s) The EKG shows sinus rhythm with a ventricular rate of [address] elevation or depression. The BUN is 19 and the GFR is 86 but the rest of the basic metabolic profile is normal. The magnesium is normal and the troponin I is normal. The BNP is normal. The CBC is normal. The coagulation profile is normal and the chest x-ray shows no acute cardiopulmonary disease. Differential Diagnosis Chest pain etiology undetermined, vertigo, atypical chest pain, acute coronary syndrome-unlikely, electrolyte disorder, esophageal pain, gastrointestinal pain , pleuritic pain, chest wall pain Narrative Course The patient has chest pain etiology undetermined. She had a fairly recent coronary angiogram which was basically normal-only 20% blockage. 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 She is going to take Phenergan for the occasional nausea and take meclizine, 25 mg 3 times daily. Diagnosis Primary Impression: Atypical chest pain Additional Impression: Vertigo, benign positional Additional Instruction: As we discussed, follow-up with your primary care physician as well as your shuttle bus driver next week. Med/Other Pt SpecificInfo: No Change to Meds Disposition: 01 DISCHARGE HOME Condition: Stable Jona Jordan MD January 19, 2018 19:34
--- NOTE | 2018-01-20 12:23 | EKG ---
Date Performed: 01/19/2018 Time Performed: 18:29:15 PTAGE: 57 years EKG: Sinus rhythm NONSPECIFIC T-WAVE ABNORMALITY BORDERLINE ECG PREVIOUS TRACING : 11/09/2017 05.10 Since the previous tracing, no significant change noted DOCTOR: Francisco Balderas Interpretating Date/Time 01/20/2018 12:22:09
== END 2018-01-19 19:49 | disposition home or self-care (01) ==
LOC: PHED 18:25
DX: R07.89 Other chest pain (principal); H81.10 Benign paroxysmal vertigo, unspecified ear; R94.31 Abnormal electrocardiogram [ECG] [EKG]; K21.9 Gastro-esophageal reflux disease without esophagitis; E05.90 Thyrotoxicosis, unspecified without thyrotoxic crisis or storm; Z85.3 Personal history of malignant neoplasm of breast; Z85.71 Personal history of Hodgkin lymphoma
CPT/HCPCS: 71045; 80048; 83735; 83880; 84484; 85025; 85610; 93005; 99285

== ENCOUNTER 2018-02-02 02:02 | Observation (INO) | payer BC ==
[~2018-02-02] VITALS: Ht 180.3 cm; Wt 70.0 kg
[2018-02-02] VITALS (12 sets, daily range): BP systolic 93–113; BP diastolic 50–98; PULSE 69–89; RESP 16–20; TEMP 97.7–98.9; O2SAT 96–98
[~2018-02-02 02:02] MED LIST changes: +ATOR20TA15 PO; +OMEP20TA93 PO; -PROT40TA PO; -TRAM50 PO
[2018-02-02] MEDS ORDERED: MECL-62 PO (02:08)
[2018-02-02] MEDS ORDERED: FAMOTIDINE 20 MG/2 ML VIAL IV PUSH SCH (02:30)
[2018-02-02] MEDS ORDERED: ASPIRIN 81 MG CHEW TAB CHEW ONE (02:30)
--- NOTE | 2018-02-02 02:44 | RADRPT ---
EXAM DATE/TIME: 02/02/2018 02:18 [place] COMPARISON: CHEST SINGLE AP, January 19, 2018, 18:41. INDICATIONS : Chest pain. MEDICAL HISTORY : Gastroesophageal reflux disease. Carcinoma, breast. Lymphoma. SURGICAL HISTORY : Cholecystectomy. Hysterectomy. Cardiac ablation. ENCOUNTER: Initial ACUITY: 1 day PAIN SCORE: 8/10 LOCATION: Left chest FINDINGS: A single view of the chest demonstrates the lungs to be symmetrically aerated without evidence of mas s, infiltrate or effusion. Scattered parenchymal scarring with apical pleural thickening. The cardio mediastinal contours are unremarkable. Osseous structures are intact. CONCLUSION: 1. Mild parenchymal scarring and apical pleural thickening. No active disease. Damian Ricks MD on February 02, 2018 at 2:41 Board Certified Radiologist. This report was verified electronically.
[2018-02-02 02:47] LABS: ALBUMIN 3.8 GM/DL (3.4-5.0); ALT (GPT) 25 U/L (10-53); AST (GOT) 25 U/L (15-37); BLOOD UREA NITROGEN 17 MG/DL (7-18); CALCIUM 8.8 MG/DL (8.5-10.1); CHLORIDE 106 MEQ/L (98-107); CREATININE 0.69 MG/DL (0.50-1.00); GLOMERULAR FILTRATION RATE 88 ML/MIN (>89); GLUCOSE,RANDOM 96 MG/DL (74-106); SODIUM (NA) 141 MEQ/L (136-145)
[2018-02-02 02:51] LABS: ALKALINE PHOSPHATASE 97 U/L (45-117); TOTAL BILIRUBIN ADULT 0.4 MG/DL (0.2-1.0); TOTAL PROTEIN 7.6 GM/DL (6.4-8.2); TROPONIN I LESS THAN 0.02 NG/ML (0.02-0.05)
[2018-02-02 02:54] LABS: BASOPHIL % 0.5 % (0.0-2.0); EOSINOPHIL # 0.2 TH/MM3 (0-0.4); EOSINOPHIL % 2.4 % (0.0-4.0); HEMATOCRIT 36.7 % (35.0-46.0); HEMOGLOBIN 12.4 GM/DL (11.6-15.3); LYMPH % 33.9 % (9.0-44.0); LYMPHOCYTE # 2.4 TH/MM3 (1.0-4.8); MEAN CELL VOLUME 85.1 FL (80.0-100.0); MEAN CORPUSCULAR HEMOGLOBIN 28.8 PG (27.0-34.0); MEAN CORPUSCULAR HGB CONC 33.9 % (32.0-36.0); MEAN PLATELET VOLUME 8.6 FL (7.0-11.0); MONO % 6.7 % (0.0-8.0); MONOCYTE # 0.5 TH/MM3 (0-0.9); NEUT % 56.5 % (16.0-70.0); PLATELET COUNT 186 TH/MM3 (150-450); RED BLOOD COUNT 4.32 MIL/MM3 (4.00-5.30); RED CELL DISTRIBUTION WIDTH 12.8 % (11.6-17.2); WHITE BLOOD COUNT 7.2 TH/MM3 (4.0-11.0)
[2018-02-02] MEDS ORDERED: LORazepam 2 MG/ML VIAL IV PUSH ONE (03:15)
[2018-02-02] MEDS ORDERED: DIATRIZOATE MEGLUM/DIATRIZOATE SOD 120 ML BTL (for RAD DIAG) PO ONE (05:42)
[2018-02-02] MEDS ORDERED: IOHEXOL 350 MG/ML 10 ML VIAL (for RAD DIAG) IVCONTRAST ONE (05:42)
[2018-02-02] MEDS ORDERED: SODIUM CHLORIDE 0.9% FLUSH 10 ML FLUSH IV FLUSH PRN (05:45)
[2018-02-02 05:59] LABS: TROPONIN I LESS THAN 0.02 NG/ML (0.02-0.05)
--- NOTE | 2018-02-02 07:21 | PD ---
HPI Chief Complaint: Chest Pain Time Seen by Provider: 02:11 Travel History International Travel<30 days: No Contact w/Intl Traveler<30days: No Traveled to known affect area: No History of Present Illness HPI pt has sudden onset of substernal burning CP no radiation and it started 2 hrs prior to presentation to ER , it awoke her from sleep no sweating no vomit , She has mild pleuritic pain with Deep inspiration and no risks for PE , EKG ordered trop negative d-dimer negative , pt hold chest central when I enter exam room . WORSENED WITH DEEP INSPIRATION APPEARS ANXIOUS , ASKS IF IT COULD BE A PE , Pt heart rate is 76 PFSH Past Medical History Hx Anticoagulant Therapy: Yes (Aspirin) Arthritis: No Heart Rhythm Problems: Yes (VT, SVT, had ablation ) Cancer: Yes (BREAST CANCER 1997, HODGKINS LYMPHOMA 2001) Cardiac Catheterization: Yes (APR 2017, ABLATION SEP 2017) Cardiovascular Problems: Yes (PVC, Mitral Valve Prolapse) High Cholesterol: Yes Chemotherapy: Yes (1997,2001) Chest Pain: Yes (CHEST PAIN) Congestive Heart Failure: No Cerebrovascular Accident: No Diabetes: No Diminished Hearing: No Endocrine: Yes Gastrointestinal Disorders: Yes GERD: Yes Genitourinary: Yes Headaches: No Hypertension: No Musculoskeletal: Yes Neurologic: Yes (VERTIGO) Psychiatric: No Reproductive: Yes Respiratory: No Immunizations Current: Yes Migraines: Yes Pancreatitis: Yes Radiation Therapy: Yes Seizures: No Sickle Cell Disease: No Thyroid Disease: Yes (HYPERTHYROID) Influenza Vaccination: No Menopausal: Yes : 0 Past Surgical History Abdominal Surgery: Yes (Gall bladder removal) AICD: No Appendectomy: Yes Arteriovenous Shunt: No Body Medical Devices: surgical clamps from breast surgery Cardiac Surgery: No Cholecystectomy: Yes Ear Surgery: No Endocrine Surgery: No Eye Surgery: No Gynecologic Surgery: Yes (Total hysterectomy) Hysterectomy: Yes Insulin Pump: No Joint Replacement: No Oral Surgery: No Pacemaker: No Thoracic Surgery: No Tonsillectomy: Yes (AND ADENOIDS) Other Surgery: Yes (Lumpectomy with nodes) Social History Alcohol Use: No Tobacco Use: No Substance Use: No Allergies-Medications (Allergen,Severity, Reaction): Coded Allergies: codeine (Unverified Allergy, Intermediate, NASUSEA/VOMITING, 02/02/18) adhesive (Unverified Adverse Reaction, Unknown, RASH, 02/02/18) Reported Meds & Prescriptions Reported Meds & Active Scripts Active Aspirin EC (Aspirin) 81 Mg Tabdr 81 Mg PO DAILY 90 Days Reported Cephalexin 500 Mg Cap 500 Mg PO Q12H Meclizine (Meclizine HCl) 25 Mg Tab 25 Mg PO DIRECTED PRN Omeprazole 20 Mg Tab 20 Mg PO EVERY OTHER DAY Atorvastatin (Atorvastatin Calcium) 20 Mg Tab 20 Mg PO HS Alprazolam 0.5 Mg Tab 0.5 Tab PO Q6H PRN Flecainide (Flecainide Acetate) 50 Mg Tab 100 Mg PO BID Tapazole (Methimazole) 5 Mg Tab 5 Mg PO DAILY Review of Systems Except as stated in HPI: all other systems reviewed are Neg Cardiovascular: Positive: Chest Pain or Discomfort Respiratory: Positive: Shortness of Breath Physical Exam Narrative GENERAL: appears anxious HR 76 SKIN: Warm and dry. HEAD: Atraumatic. Normocephalic. EYES: Pupils equal and round. No scleral icterus. No injection or drainage. ENT: No nasal bleeding or discharge. Mucous membranes pink and moist. NECK: Trachea midline. No JVD. CARDIOVASCULAR: Regular rate and rhythm. RESPIRATORY: No accessory muscle use. Clear to auscultation. Breath sounds equal bilaterally. GASTROINTESTINAL: Abdomen soft, non-tender, nondistended. Hepatic and splenic margins not palpable. MUSCULOSKELETAL: Extremities without clubbing, cyanosis, or edema. No obvious deformities. NEUROLOGICAL: Awake and alert. No obvious cranial nerve deficits. Motor grossly within normal limits. Five out of 5 muscle strength in the arms and legs. Normal speech. PSYCHIATRIC: Appropriate mood and affect; insight and judgment normal. Data Data Last Documented VS Vital Signs Date Time Temp Pulse Resp B/P (MAP) Pulse Ox O2 Delivery O2 Flow Rate FiO2 02/02/18 02:17 84 02/02/18 02:08 98.9 18 113/57 (75) 97 Orders Orders Complete Blood Count With Diff (02/02/18 02:12) Comprehensive Metabolic Panel (02/02/18 02:12) Ckmb (Isoenzyme) Profile (02/02/18 02:12) Troponin I (02/02/18 02:12) Lipase (02/02/18 02:12) Electrocardiogram (02/02/18 ) Chest, Single Ap (02/02/18 ) Famotidine Inj (Pepcid Inj) (02/02/18 02:30) Aspirin Chew (Aspirin Chew) (02/02/18 02:30) D-Dimer (02/02/18 03:03) Lorazepam Inj (Ativan Inj) (02/02/18 03:15) Troponin I (02/02/18 05:18) Ckmb (Isoenzyme) Profile (02/02/18 05:18) Electrocardiogram (02/02/18 ) Place In Observation (02/02/18 05:38) Activity Bed Rest With Brp (02/02/18 05:38) Vital Signs (Adult) Q4H (02/02/18 05:38) Cardiac Rhythm .As Directed (02/02/18 05:38) Notify Dr: Other .PRN (02/02/18 05:38) Notify Dr. Parameters (02/02/18 05:38) Resp Oxygen Nasal Cannula (02/02/18 ) Ckmb (Isoenzyme) Profile (02/02/18 08:38) Troponin I (02/02/18 08:24) Electrocardiogram (02/02/18 08:38) ^ Obtain (02/02/18 05:38) Sodium Chloride 0.9% Flush (Ns Flush) (02/02/18 05:45) Sodium Chloride 0.9% Flush (Ns Flush) (02/02/18 09:00) Enterprise Application Developer / Telemetry [email or web address] (02/02/18 05:38) Admit Order (Ed Use Only) (02/02/18 05:40) Labs Laboratory Tests Test 02/02/18 02:15 02/02/18 03:12 02/02/18 05:20 White Blood Count 7.2 TH/MM3 Red Blood Count 4.32 MIL/MM3 Hemoglobin 12.4 GM/DL Hematocrit 36.7 % Mean Corpuscular Volume 85.1 FL Mean Corpuscular Hemoglobin 28.8 PG Mean Corpuscular Hemoglobin Concent 33.9 % Red Cell Distribution Width 12.8 % Platelet Count 186 TH/MM3 Mean Platelet Volume 8.6 FL Neutrophils (%) (Auto) 56.5 % Lymphocytes (%) (Auto) 33.9 % Monocytes (%) (Auto) 6.7 % Eosinophils (%) (Auto) 2.4 % Basophils (%) (Auto) 0.5 % Neutrophils # (Auto) 4.0 TH/MM3 Lymphocytes # (Auto) 2.4 TH/MM3 Monocytes # (Auto) 0.5 TH/MM3 Eosinophils # (Auto) 0.2 TH/MM3 Basophils # (Auto) 0.0 TH/MM3 CBC Comment DIFF FINAL Differential Comment Blood Urea Nitrogen 17 MG/DL Creatinine 0.69 MG/DL Random Glucose 96 MG/DL Total Protein 7.6 GM/DL Albumin 3.8 GM/DL Calcium Level 8.8 MG/DL Alkaline Phosphatase 97 U/L Aspartate Amino Transf (AST/SGOT) 25 U/L Alanine Aminotransferase (ALT/SGPT) 25 U/L Total Bilirubin 0.4 MG/DL Sodium Level 141 MEQ/L Potassium Level 4.0 MEQ/L Chloride Level 106 MEQ/L Carbon Dioxide Level 26.0 MEQ/L Anion Gap 9 MEQ/L Estimat Glomerular Filtration Rate 88 ML/MIN Total Creatine Kinase 43 U/L 36 U/L Troponin I LESS THAN 0.02 NG/ML LESS THAN 0.02 NG/ML Lipase 239 U/L D-Dimer Quantitative (PE/DVT) 0.26 MG/L [facility]U [facility] Medical Decision Making Medical Screen Exam Complete: Yes Emergency Medical Condition: Yes Medical Record Reviewed: Yes Differential Diagnosis cp of ischemia vs gerd vs PE cs anxiety PNA other Narrative Course EKG NSR AND TROP NEGATIVE AND D-DIMER NEGATIVE PEPCID FOR GERD NO IMPROVEMENT [facility] AND [facility] Diagnosis Primary Impression: Atypical chest pain Admitting Information Admitting Physician Requests: Observation Scripts Loratadine (Claritin) 10 Mg Cap 10 MG PO DAILY for Allergy Management, #30 CAP 0 Refills Prov: Vadim Walsh MD 02/04/18 Fluticasone Nasal Chamberlain (Flonase Nasal Chamberlain) 50 Mcg/Act [place] 100 MCG EACH NARE QD for Allergies, #1 BOTTLE 0 Refills Prov: Vadim Walsh MD 02/04/18 Pantoprazole (Pantoprazole) 40 Mg Tab 40 MG PO DAILY for Manage Heartburn, #30 TAB Prov: Vadim Walsh MD 02/04/18 Moustapha Fernández MD February 02, 2018 07:21
[2018-02-02] MEDS ORDERED: NITROGLYCERIN 0.4 MG SL 25 TABS/BTL SL PRN (07:30)
[2018-02-02] MEDS ORDERED: ACETAMINOPHEN 500 MG CPLT PO PRN (07:30)
[2018-02-02] MEDS ORDERED: ONDANSETRON ODT 4 MG TAB PO PRN (07:30)
[2018-02-02] MEDS ORDERED: PILL SPLITTER OTHER PRN (08:30)
[2018-02-02] MEDS ORDERED: FLECAINIDE ACETATE 100 MG TAB PO SCH ×2 (09:00→21:00)
[2018-02-02] MEDS ORDERED: METHIMAZOLE 5 MG TAB PO ONE (09:00)
[2018-02-02] MEDS ORDERED: FLECAINIDE ACETATE 100 MG TAB PO ONE (09:00)
[2018-02-02] MEDS: SODIUM CHLORIDE 0.9% FLUSH 10 ML FLUSH IV FLUSH SCH ×2 (09:23→20:56)
[2018-02-02] MEDS: ASPIRIN EC 81 MG TABEC PO SCH (09:23)
[2018-02-02 09:28] LABS: TROPONIN I LESS THAN 0.02 NG/ML (0.02-0.05)
--- NOTE | 2018-02-02 09:31 | MB ---
cc: Charli Raymond MD DATE: 02/02/2018 HISTORY OF PRESENT ILLNESS: Sol is a very pleasant 57-year-old lady with history of mild coronary disease by heart catheterization on 12/06/2016 by myself. She underwent cardiac ablation treatment by Dr. Feldman in 09/2017. She presents with severe substernal chest pain, worse with a deep breath. She cannot perform a complete tidal volume due to the severity of the chest pain. She describes it as a tightness sensation. She otherwise denies any fevers, chills, cough, GI or bleeding, PND, orthopnea, syncope or dizziness. PAST MEDICAL HISTORY: As per history of present illness. Cardiac catheterization on 12/06/2016, EF of 60%. LVDP was 7. There was a 20% stenosis in a small first diagonal vessel in the proximal segment. Past medical history also includes SVT, breast cancer, Hodgkin lymphoma 2001, mitral valve prolapse, hyperlipidemia, chemotherapy in 1997, 2001; migraine headaches, pancreatitis radiation therapy, hypothyroidism, menopausal, cholecystectomy, total hysterectomy, lumpectomy, adenoidectomy. SOCIAL HISTORY: Denies tobacco or alcohol use. ALLERGIES: 1. CODEINE. 2. ADHESIVES. MEDICATIONS PRIOR TO ADMISSION: 1. Aspirin 81 mg daily. 2. Meclizine. 3. Omeprazole. 4. Atorvastatin 20 mg at bedtime. 5. Alprazolam. 6. Flecainide 100 mg b.i.d. 7. Tapazole 5 mg daily. PHYSICAL EXAMINATION: VITAL SIGNS: Blood pressure 99/56, pulse 72, respiratory rate 16, temperature 97.7, sats 97% on room air. GENERAL: She is alert and oriented x 3, in no acute distress. NECK: Supple. No JVD. No bruit. CARDIOVASCULAR: S1, S2. No murmurs, rubs or gallops. LUNGS: Clear to auscultation bilaterally. ABDOMEN: Soft, nontender and nondistended with positive bowel sounds. EXTREMITIES: No lower extremity edema. DIAGNOSTIC STUDIES: EKG is not available in the computer to interpret. Chest x-ray shows mild parenchymal scarring and apical pleural thickening. No active disease. LABORATORY STUDIES: Sodium 141, potassium 4.0, chloride 106, bicarbonate 26.0, BUN 17, creatinine 0.69, glucose 88, AST 25, ALT 25. Troponin less than 0.02 x 2. INR 0.26. White count 7.2, hemoglobin 12.4, hematocrit 36.7, platelet count 186. DIAGNOSES: 1. Chest pain. 2. Coronary artery disease. 3. History of ventricular tachycardia. 4. Status post ablation 09/2017. 5. History of breast cancer. 6. History of lymphoma. 7. Status post chemotherapy. 8. Status post radiation therapy. 9. History of supraventricular tachycardia. 10. Arrhythmia. 11. History of pancreatitis. 12. History of hyperthyroidism. DISCUSSION: At this point in time, there is no objective evidence of ischemia by troponin levels. EKG is not available. We will check another troponin now. I am going to get a CT of the chest given the history of radiation therapy, Hodgkin lymphoma, and breast cancer and also get a GI consult, although it does not appear by history, the patient has an atrial fibrillation ablation. I just want him make certain that there is no possibility of esophageal perforation due to the previous ablations which are unlikely if they are for ventricular fibrillation or SVT. Nevertheless, we will take the precaution. Recommend telemetry monitoring. Also order EKG. Further recommendations based on her troponin trend, EKG, CTA findings and GI recommendations. Otherwise, recommend continue aspirin. We will also restart the patient's flecainide, which has not been ordered in the hospital yet. We will decrease her aspirin from 325 to 81 mg daily. Also, continue atorvastatin 20 mg at bedtime. MD SONJA Irvin/PANCHO , 08:13 AM , 09:30 AM
--- NOTE | 2018-02-02 09:37 | HHI.HP ---
HPI Primary Care Physician Berny Sheikh MD Chief Complaint Chest pain History of Present Illness 57 year old female with history of SVT and hyperthyroidism presents to ER for further evaluation of chest pain. Onset 100am, awakened from sleep. Location left anterior chest. Characterized as squeezing. Radiation left side of neck and left arm. Duration 5 hours. Associated symptoms of diaphoreses. Denies nausea, vomiting, or dyspnea. Hurt to take a deep breath in substernal and epigastric area. No particular movements makes pain better or worse. Denies similar pain in the past. Reports rapid heart rate of 120, however did not feel like her "normal SVT episodes." Current chest pain free, however breathing continues to hurt with inspiration. Endorses current sinus infection, currently on antibiotics. Denies any cough or chest congestion. Review of Systems General: No fatigue,weakness, fever, chills. Currently being treated with antibiotics, today being day 3 of antibiotics use. HEENT: No POWER. Current nasal congestion. No dysphasia CV: As stated above. No current CP or pressure. Longstanding history of palpitations and cardiac ablation 10/17/17 (Dr. Feldman), reports palpations and frequent PVC continue and rope walker recently increased Flecainide from 50 mg bid to 100 mg bid. RESP: Substernal chest sharpness during inspiration. No SOB, cough, wheeze, or recent upper respiratory infection. GI: No nausea, vomiting, or bowel changes. : No dysuria, urgency, or frequency EXT: No lower leg edema, no paraesthesias MS: No discomfort or change in ROM NEURO: No change in memory, dizziness, difficulty with balance, LOC, or motor/ sensory deficits PSYCH: No anxiety, depression, or suicidal ideation SKIN: No rashes, no concerning lesions Past Family Social History Allergies: Coded Allergies: codeine (Unverified Allergy, Intermediate, NASUSEA/VOMITING, 02/02/18) adhesive (Unverified Adverse Reaction, Unknown, RASH, 02/02/18) Past Medical History Breast cancer (remission 1997-radiation treatments), hyperthyroidism, Hodgkin's lymphoma (remission 2001), MVP, GERD, chronic back pain, migraines, vertigo Past Surgical History Hysterectomy, cholecystectomy, appendectomy, lumpectomy Reported Medications Reported Meds & Active Scripts Active Aspirin EC (Aspirin) 81 Mg Tabdr 81 Mg PO DAILY 90 Days Reported Meclizine (Meclizine HCl) 25 Mg Tab 25 Mg PO DIRECTED PRN Omeprazole 20 Mg Tab 20 Mg PO EVERY OTHER DAY Atorvastatin (Atorvastatin Calcium) 20 Mg Tab 20 Mg PO HS Alprazolam 0.5 Mg Tab 0.5 Tab PO Q6H PRN Flecainide (Flecainide Acetate) 50 Mg Tab 100 Mg PO BID Tapazole (Methimazole) 2.5 Mg PO DAILY Active Ordered Medications Current Medications Medications (Trade) Dose Ordered Sig/Keiko Route Start Time Stop Time Status Last Admin (Pepcid Inj) 20 mg ONCE IV PUSH 02/02/18 02:30 02/02/18 02:29 (NS Flush) 2 ml UNSCH PRN IV FLUSH 02/02/18 05:45 (NS Flush) 2 ml BID IV FLUSH 02/02/18 09:00 (Tylenol) 500 mg Q4H PRN PO 02/02/18 07:30 (Zofran Odt) 4 mg Q6H PRN PO 02/02/18 07:30 (Nitrostat Sl) 0.4 mg Q5M PRN SL 02/02/18 07:30 (Ecotrin Ec) 81 mg DAILY PO 02/02/18 09:00 (Lipitor) 20 mg HS PO 02/02/18 21:00 (Pill Splitter) 1 ea UNSCH PRN OTHER 02/02/18 08:30 Family History Noncontributory for early onset cardiovascular disease Social History No known hypertension, diabetes, or hyperlipidemia. Lifelong nonsmoker. Denies any alcohol use. . Past cardiac testing 10/17/17 Cardiac ablation (Gaston Navarro) 05/08/17 Cardiac catheterization (Dr. Raymond) Conclusions: 1. Angiographically mild one-vessel coronary disease and eight dominant system as detailed above. 2. Normal LV systolic function with ejection fraction 65%. 3. History V. tach. 4. Recommended follow up with Dr. Feldman for further evaluation and management of arrhythmia. Patient's rope walker is Dr. Raymond and Dr. Feldman (EP). Reports seeing Dr. Moreno recently for a second opinion, plans to keep following with Dr. Raymond. Physical Exam Vital Signs Vital Signs Date Time Temp Pulse Resp B/P (MAP) Pulse Ox O2 Delivery O2 Flow Rate FiO2 02/02/18 06:36 97.7 72 16 99/56 (70) 97 02/02/18 06:10 74 16 111/59 (76) 98 02/02/18 05:52 98 Nasal Cannula 2.00 02/02/18 02:17 84 02/02/18 02:08 98.9 85 18 113/57 (75) 97 Physical Exam GENERAL: Alert WN, WD, NAD, pleasant, female who appears older than stated age HEAD: NC, AT CV: RRR, without murmur, rub, gallop, no JVD, S1-S2 no S3-S4. Chest wall nontender with palpation. RESP: Clear lungs throughout bilateral, no crackles, wheeze, rhonchi, symmetrical chest rise, nonlabored, able to speak in full sentences ABD: Soft, NT, ND, no masses, positive bowel tones EXT: Pulses +2x4, no dependent edema MS: Normal tone x4 extremities, nontender, no obvious deformities, full range of motion NEURO: CN II through CN XII grossly intact, motor strength 5/5 PSYCH: A+O x3, flat affect, appropriate speech, mood, insight and judgment SKIN: Normal turgor, normal texture, no lesions, no rashes, brisk cap refill, even hair distribution Laboratory Laboratory Tests Test 02/02/18 02:15 02/02/18 03:12 02/02/18 05:20 02/02/18 08:30 White Blood Count 7.2 Red Blood Count 4.32 Hemoglobin 12.4 Hematocrit 36.7 Mean Corpuscular Volume 85.1 Mean Corpuscular Hemoglobin 28.8 Mean Corpuscular Hemoglobin Concent 33.9 Red Cell Distribution Width 12.8 Platelet Count 186 Mean Platelet Volume 8.6 Neutrophils (%) (Auto) 56.5 Lymphocytes (%) (Auto) 33.9 Monocytes (%) (Auto) 6.7 Eosinophils (%) (Auto) 2.4 Basophils (%) (Auto) 0.5 Neutrophils # (Auto) 4.0 Lymphocytes # (Auto) 2.4 Monocytes # (Auto) 0.5 Eosinophils # (Auto) 0.2 Basophils # (Auto) 0.0 CBC Comment DIFF FINAL Differential Comment Blood Urea Nitrogen 17 Creatinine 0.69 Random Glucose 96 Total Protein 7.6 Albumin 3.8 Calcium Level 8.8 Alkaline Phosphatase 97 Aspartate Amino Transf (AST/SGOT) 25 Alanine Aminotransferase (ALT/SGPT) 25 Total Bilirubin 0.4 Sodium Level 141 Potassium Level 4.0 Chloride Level 106 Carbon Dioxide Level 26.0 Anion Gap 9 Estimat Glomerular Filtration Rate 88 Total Creatine Kinase 43 36 Troponin I LESS THAN 0.02 LESS THAN 0.02 Lipase 239 D-Dimer Quantitative (PE/DVT) 0.26 Result Diagram: 02/02/18 0215 02/02/18 0215 Imaging Last 48 hours Impressions Chest X-Ray 02/02/18 0000 Signed Impressions: Service Date/Time: Friday, February 02, 2018 02:18 - CONCLUSION: 1. Mild parenchymal scarring and apical pleural thickening. No active disease. Damian Ricks MD Course EKG Normal sinus rhythm, normal axis, no ST-T segment change Caprini VTE Risk Assessment Caprini VTE Risk Assessment: No/Low Risk (score <= 1) Caprini Risk Assessment Model Point Value = 1 Point Value = 2 Point Value = 3 Point Value = 5 Age 41-60 Minor surgery BMI > 25 kg/m2 Swollen legs Varicose veins or History of unexplained or recurrent spontaneous Oral contraceptives or hormone replacement Sepsis (< 1 month) Serious lung disease, including pneumonia (< 1 month) Abnormal pulmonary function Acute myocardial infarction Congestive heart failure (< 1 month) History of inflammatory bowel disease Medical patient at bed rest Age 61-74 Arthroscopic surgery Major open surgery (> 45 min) Laparoscopic surgery (> 45 min) Malignancy Confined to bed (> 72 hours) Immobilizing plaster cast Central venous access Age >= 75 History of VTE Family history of VTE Factor V Leiden Prothrombin [id number] Lupus anticoagulant Anticardiolipin antibodies Elevated serum homocysteine Heparin-induced thrombocytopenia Other congenital or acquired thrombophilia Stroke (< 1 month) Elective arthroplasty Hip, pelvis, or leg fracture Acute spinal cord injury (< 1 month) Prophylaxis Regimen Total Risk Factor Score Risk Level Prophylaxis Regimen 0-1 Low Early ambulation 2 Moderate Order ONE of the following: *Sequential Compression Device (SCD) *Heparin 5000 units SQ BID 3-4 Higher Order ONE of the following medications: *Heparin 5000 units SQ TID *Enoxaparin/Lovenox 40 mg SQ daily (WT < 150 kg, CrCl > 30 mL/min) *Enoxaparin/Lovenox 30 mg SQ daily (WT < 150 kg, CrCl > 10-29 mL/min) *Enoxaparin/Lovenox 30 mg SQ BID (WT < 150 kg, CrCl > 30 mL/min) AND/OR *Sequential Compression Device (SCD) 5 or more Highest Order ONE of the following medications: *Heparin 5000 units SQ TID (Preferred with Epidurals) *Enoxaparin/Lovenox 40 mg SQ daily (WT < 150 kg, CrCl > 30 mL/min) *Enoxaparin/Lovenox 30 mg SQ daily (WT < 150 kg, CrCl > 10-29 mL/min) *Enoxaparin/Lovenox 30 mg SQ BID (WT < 150 kg, CrCl > 30 mL/min) AND *Sequential Compression Device (SCD) Assessment and Plan Assessment and Plan #1 Atypical chest pain-admitted chest pain center. Continue ruling out ACS protocol. Discomfort pleuritic in nature. Recent cardiac catheterization showing mild one-vessel coronary artery disease. Will be seen and evaluated by Dr. Andre Cochran. Discussed likely discharge later this morning after third set of EKGs and cardiac enzymes completed. Follow with with PCP to determine and discuss possible causes of noncardiac chest discomfort. Continue Flecainide. #2 History of hyperthyroidism-continue Tapazole #3 History of GERD-continued Protonix Jovita Leavitt February 02, 2018 09:37
[2018-02-02] MEDS ORDERED: KETOROLAC TROMETHAMINE 30 MG/ML (IVP) VIAL IV PUSH ONE (10:15)
--- NOTE | 2018-02-02 11:27 | PD.CONS ---
History of Present Illness Service Hospitalist Consult Requested By Cardiology Primary Care Physician Berny Sheikh MD Diagnoses: History of Present Illness In summary this is a 57-year-old female with a history of coronary artery disease and A. fib who presented to the hospital for chest pain. The patient was admitted to the chest pain center. Opponent have been negative 3. D- dimer 0.26. Chest x-ray with no active disease. Cardiology wants to be sure to rule out a esophageal perforation given her radiation therapy. CT of the chest was ordered. GI was also consulted. Hospitalist were consulted for medical management. Currently patient continues to have chest pain that is worse with inspiration. She states walking to the sink also ilicits the pain. She endorses nausea with no vomiting. Pain is significant for the patient but is improved from yesterday. Pain is improved with toradol. Review of Systems Constitutional: COMPLAINS OF: Chills, Dizziness, DENIES: Fever Eyes: DENIES: Blurred vision, Diplopia Ears, nose, mouth, throat: DENIES: Throat pain Respiratory: DENIES: Cough, Shortness of breath Cardiovascular: COMPLAINS OF: Chest pain, Dyspnea on Exertion Gastrointestinal: COMPLAINS OF: Nausea, DENIES: Abdominal pain, Vomiting Musculoskeletal: DENIES: Joint pain Neurologic: DENIES: Abnormal gait, Localized weakness Past Family Social History Allergies: Coded Allergies: codeine (Unverified Allergy, Intermediate, NASUSEA/VOMITING, 02/02/18) adhesive (Unverified Adverse Reaction, Unknown, RASH, 02/02/18) Past Medical History SVT Hyperthyroid Breast Cancer Hodgkin lymphoma GERD MVP Migraines Vertigo Chronic back pain Past Surgical History Lumpectomy R breast Appendectomy Cholecystectomy Active Ordered Medications Reported Meds & Active Scripts Active Aspirin EC (Aspirin) 81 Mg Tabdr 81 Mg PO DAILY 90 Days Reported Meclizine (Meclizine HCl) 25 Mg Tab 25 Mg PO DIRECTED PRN Omeprazole 20 Mg Tab 20 Mg PO EVERY OTHER DAY Atorvastatin (Atorvastatin Calcium) 20 Mg Tab 20 Mg PO HS Alprazolam 0.5 Mg Tab 0.5 Tab PO Q6H PRN Flecainide (Flecainide Acetate) 50 Mg Tab 100 Mg PO BID Tapazole (Methimazole) 5 Mg Tab 5 Mg PO DAILY Physical Exam Vital Signs Vital Signs Date Time Temp Pulse Resp B/P (MAP) Pulse Ox O2 Delivery O2 Flow Rate FiO2 02/02/18 10:51 97.8 87 20 106/61 (76) 96 02/02/18 07:58 70 02/02/18 06:36 97.7 72 16 99/56 (70) 97 02/02/18 06:10 74 16 111/59 (76) 98 02/02/18 05:52 98 Nasal Cannula 2.00 02/02/18 02:17 84 02/02/18 02:08 98.9 85 18 113/57 (75) 97 Physical Exam GENERAL: This is a well-nourished, well-developed patient, appears uncomfortable. SKIN: No rashes, ecchymoses or lesions. Cool and dry. HEAD: Atraumatic. Normocephalic. No temporal or scalp tenderness. EYES: Pupils equal round and reactive. Extraocular motions intact. No scleral icterus. No injection or drainage. ENT: Nose without bleeding, purulent drainage or septal hematoma. Throat without erythema, tonsillar hypertrophy or exudate. Uvula midline. Airway patent. NECK: Trachea midline. No JVD or lymphadenopathy. Supple, nontender, no meningeal signs. CARDIOVASCULAR: Regular rate and rhythm without murmurs, gallops, or rubs. RESPIRATORY: Clear to auscultation. Breath sounds equal bilaterally. No wheezes , rales, or rhonchi. GASTROINTESTINAL: Abdomen soft, non-tender, nondistended. No hepato-splenomegaly , or palpable masses. No guarding. MUSCULOSKELETAL: Extremities without clubbing, cyanosis, or edema. No joint tenderness, effusion, or edema noted. No calf tenderness. . NEUROLOGICAL: Awake and alert. Motor and sensory grossly within normal limits. Normal speech. Laboratory Laboratory Tests Test 02/02/18 02:15 02/02/18 03:12 02/02/18 05:20 02/02/18 08:30 White Blood Count 7.2 Red Blood Count 4.32 Hemoglobin 12.4 Hematocrit 36.7 Mean Corpuscular Volume 85.1 Mean Corpuscular Hemoglobin 28.8 Mean Corpuscular Hemoglobin Concent 33.9 Red Cell Distribution Width 12.8 Platelet Count 186 Mean Platelet Volume 8.6 Neutrophils (%) (Auto) 56.5 Lymphocytes (%) (Auto) 33.9 Monocytes (%) (Auto) 6.7 Eosinophils (%) (Auto) 2.4 Basophils (%) (Auto) 0.5 Neutrophils # (Auto) 4.0 Lymphocytes # (Auto) 2.4 Monocytes # (Auto) 0.5 Eosinophils # (Auto) 0.2 Basophils # (Auto) 0.0 CBC Comment DIFF FINAL Differential Comment Blood Urea Nitrogen 17 Creatinine 0.69 Random Glucose 96 Total Protein 7.6 Albumin 3.8 Calcium Level 8.8 Alkaline Phosphatase 97 Aspartate Amino Transf (AST/SGOT) 25 Alanine Aminotransferase (ALT/SGPT) 25 Total Bilirubin 0.4 Sodium Level 141 Potassium Level 4.0 Chloride Level 106 Carbon Dioxide Level 26.0 Anion Gap 9 Estimat Glomerular Filtration Rate 88 Total Creatine Kinase 43 36 44 Troponin I LESS THAN 0.02 LESS THAN 0.02 LESS THAN 0.02 Lipase 239 D-Dimer Quantitative (PE/DVT) 0.26 Result Diagram: 02/02/18 0215 02/02/18 0215 Imaging Last Impressions Chest X-Ray 02/02/18 0000 Signed Impressions: Service Date/Time: Sunday, February 02, 2018 02:18 - CONCLUSION: 1. Mild parenchymal scarring and apical pleural thickening. No active disease. Damian Ricks MD Assessment and Plan Problem List: (1) Hyperthyroidism ICD Codes: E05.90 - Thyrotoxicosis, unspecified without thyrotoxic crisis or storm Status: Chronic (2) GERD (gastroesophageal reflux disease) ICD Codes: K21.9 - Gastro-esophageal reflux disease without esophagitis Status: Chronic (3) Chest pain ICD Codes: R07.9 - Chest pain, unspecified Status: Acute Assessment and Plan This is a 57-year-old female patient who is admitted to the chest pain center for chest pain. Chest pain -ACS negative -Cardiology following, wants to rule out esophageal perforation. GI plans for Gastrografin swallow, possible EGD depending on findings, Protonix Unintentional weight loss -Patient is lost 18 pounds in April. She is a family history of pancreatic cancer. She has never had an EGD or colonoscopy. GERD -Well-controlled on an outpatient basis by omeprazole Atrial fibrillation -Followed by cardiology. Patient's flecainide resumed. Hyperthyroidism -Continue methimazole Coronary artery disease -Continue statin, aspirin Discussed Condition With Patient and her nurse. Discharge Planning D/C pending further workup. Kelly Nair MD February 02, 2018 11:27
--- NOTE | 2018-02-02 11:58 | EKG ---
Date Performed: 02/02/2018 Time Performed: 02:10:29 PTAGE: 57 years EKG: Sinus rhythm NORMAL ECG Since PREVIOUS TRACING , no significant change noted DOCTOR: Andre Cochran Interpretating Date/Time 02/02/2018 11:57:08
--- NOTE | 2018-02-02 12:03 | EKG ---
Date Performed: 02/02/2018 Time Performed: 05:29:30 PTAGE: 57 years EKG: Sinus rhythm NORMAL ECG PREVIOUS TRACING : 01/19/2018 18.29 Since previous tracing, no significant change noted DOCTOR: Andre Cochran Interpretating Date/Time 02/02/2018 12:02:21
--- NOTE | 2018-02-02 12:05 | PD.CONS ---
HPI History of Present Illness This is a 57 year old F with PMH significant for breast cancer S/P chemo, radiation and lumpectomy, and Hodgkin lymphoma in remission, SVT with last ablation done in September by Dr. Carroll and hyperthyroidism who presented to the ER early this morning with complaints of chest pain that woke her up out of her sleep. Describes pain as squeezing, located in her left anterior chest, radiates to left side of neck and down arm. Our service has been consulted by cardiology to rule out the possibility of esophageal perforation from previous ablation. Denies any associated nausea or vomiting. Pt denies abdominal pain, dysphagia, odynophagia, states BMs are regular. Does have GERD but states generally well controlled with Omeprazole, occasionally has to take Gas-X as well. Pt has never had EGD or colonoscopy. Family history significant for mother with pancreatic cancer, states her mother was not a drinker. Also maternal grandmother who had colon cancer. (Guera Aguillon) PFSH Past Medical History SVT Hyperthyroid Breast Cancer Hodgkin lymphoma GERD MVP Migraines Vertigo Chronic back pain Past Surgical History Lumpectomy R breast Appendectomy Cholecystectomy (Guera Aguillon) Coded Allergies: codeine (Unverified Allergy, Intermediate, NASUSEA/VOMITING, 02/02/18) adhesive (Unverified Adverse Reaction, Unknown, RASH, 02/02/18) Social History Denies ETOH, smoking (Guera Aguillon) Review of Systems Gastrointestinal: COMPLAINS OF: Heartburn, DENIES: Abdominal pain, Bloody stools, Constipation, Diarrhea, Nausea, Vomiting, Difficulty Swallowing, Odynophagia, Swelling of Abdomen, Hematemesis (Guera Aguillon) GI Exam Vitals I&O Vital Signs Date Time Temp Pulse Resp B/P (MAP) Pulse Ox O2 Delivery O2 Flow Rate FiO2 02/02/18 10:51 97.8 87 20 106/61 (76) 96 02/02/18 07:58 70 02/02/18 06:36 97.7 72 16 99/56 (70) 97 02/02/18 06:10 74 16 111/59 (76) 98 02/02/18 05:52 98 Nasal Cannula 2.00 02/02/18 02:17 84 02/02/18 02:08 98.9 85 18 113/57 (75) 97 Imaging Last Impressions Chest X-Ray 02/02/18 0000 Signed Impressions: Service Date/Time: Friday, February 02, 2018 02:18 - CONCLUSION: 1. Mild parenchymal scarring and apical pleural thickening. No active disease. Damian Ricks MD Laboratory Test 02/02/18 02:15 02/02/18 03:12 02/02/18 05:20 02/02/18 08:30 White Blood Count 7.2 TH/MM3 Red Blood Count 4.32 MIL/MM3 Hemoglobin 12.4 GM/DL Hematocrit 36.7 % Mean Corpuscular Volume 85.1 FL Mean Corpuscular Hemoglobin 28.8 PG Mean Corpuscular Hemoglobin Concent 33.9 % Red Cell Distribution Width 12.8 % Platelet Count 186 TH/MM3 Mean Platelet Volume 8.6 FL Neutrophils (%) (Auto) 56.5 % Lymphocytes (%) (Auto) 33.9 % Monocytes (%) (Auto) 6.7 % Eosinophils (%) (Auto) 2.4 % Basophils (%) (Auto) 0.5 % Neutrophils # (Auto) 4.0 TH/MM3 Lymphocytes # (Auto) 2.4 TH/MM3 Monocytes # (Auto) 0.5 TH/MM3 Eosinophils # (Auto) 0.2 TH/MM3 Basophils # (Auto) 0.0 TH/MM3 CBC Comment DIFF FINAL Differential Comment Blood Urea Nitrogen 17 MG/DL Creatinine 0.69 MG/DL Random Glucose 96 MG/DL Total Protein 7.6 GM/DL Albumin 3.8 GM/DL Calcium Level 8.8 MG/DL Alkaline Phosphatase 97 U/L Aspartate Amino Transf (AST/SGOT) 25 U/L Alanine Aminotransferase (ALT/SGPT) 25 U/L Total Bilirubin 0.4 MG/DL Sodium Level 141 MEQ/L Potassium Level 4.0 MEQ/L Chloride Level 106 MEQ/L Carbon Dioxide Level 26.0 MEQ/L Anion Gap 9 MEQ/L Estimat Glomerular Filtration Rate 88 ML/MIN Total Creatine Kinase 43 U/L 36 U/L 44 U/L Troponin I LESS THAN 0.02 NG/ML LESS THAN 0.02 NG/ML LESS THAN 0.02 NG/ML Lipase 239 U/L D-Dimer Quantitative (PE/DVT) 0.26 MG/L FEU Physical Examination HEENT: Normocephalic; atraumatic CHEST: Even/unlabored CARDIAC: RRR ABDOMEN: Soft, nondistended, nontender; bowel sounds active EXTREMITIES: No clubbing, cyanosis, or edema. SKIN: Normal; no rash; no jaundice. TECHNICAL COMMUNICATION TEACHER: No focal deficits; alert and oriented times three. (Guera Aguillon) Assessment and Plan Plan Assessment: - Chest pain started at 1 am, woke her up out of her sleep History of SVT S/P ablation in September by Dr. Feldman, on Flecanide and pt states has been well controlled - Rule out esophageal perforation- cardiology consult to rule out esophageal perforation after ablation in September Pt has never had EGD. Denies nausea, vomiting, dysphagia, odynophagia. GERD normally well controlled with Omeprazole has to take Gas-X occasionally - Unintentional weight loss, lost 18 pounds in April when she first started having issues with her heart, says she has gained back 4 pounds and has sustained there - Family history of pancreatic cancer, mother who she states was not a drinker. Maternal grandmother had colon cancer. Pt has never had colonoscopy. - Hyperthyroid- on Methimazole - History of breast cancer S/P chemo, radiation and lumpectomy History of Hodgkin lymphoma S/P chemo in remission Plan: Gastrografin swallow Possible EGD depending on findings Protonix Cardiology following Further recommendations based on findings of above and clinical course Pt has been seen and examined by myself and Dr. Barrios and this note is written on her behalf (Guera Aguillon) Physician Comments seen, examined agree with above CTA chest if the above negative consider egd (Maggie Barrios MD) Guera Aguillon February 02, 2018 12:04 Maggie Barrios MD February 02, 2018 15:00
[2018-02-02] MEDS: METHIMAZOLE 5 MG TAB PO SCH ×2 (14:00→14:58)
[2018-02-02] MEDS: FLECAINIDE ACETATE 100 MG TAB PO SCH ×2 (14:58→20:56)
--- NOTE | 2018-02-02 16:35 | RADRPT ---
EXAM DATE/TIME: 02/02/2018 15:53 [facility] COMPARISON: No previous studies available for comparison. INDICATIONS : Left side chest pain and shortness of breath. IV CONTRAST: 60 cc Omnipaque 350 (iohexol) IV RADIATION DOSE: 10.61 CTDIvol (mGy) MEDICAL HISTORY : Carcinoma, breast. Lymphoma. Gastroesophageal reflux disease. SURGICAL HISTORY : Tonsillectomy. Cholecystectomy.Appendectomy.Bilateral lumpectomies with radiation. ENCOUNTER: Initial ACUITY: 2 days PAIN SCALE: 4/10 LOCATION: Left upper chest TECHNIQUE: Volumetric scanning of the chest was performed using a pulmonary embolism protocol MIP images were re constructed. Using automated exposure control and adjustment of the mA and/or kV according to patien t size, radiation dose was kept as low as reasonably achievable to obtain optimal diagnostic quality images. DICOM format image data is available electronically for review and comparison. Follow-up recommendations for detected pulmonary nodules are based at a minimum on nodule size and pa tient risk factors according to Fleischner Society Guidelines. FINDINGS: PULMONARY ARTERIES: No filling defects are seen in the pulmonary arteries through the segmental level. LUNGS: Biapical scarring. Minimal groundglass opacities at the lung bases likely reflecting volume loss. PLEURAE: There is no pleural thickening or pleural effusion. MEDIASTINUM: There is good visualization of the great vessels of the middle mediastinum. No evidence of mediastin al or hilar adenopathy/mass. MUSCULOSKELETAL: Within normal limits for patient age. MISCELLANEOUS: The visualized upper abdominal organs demonstrate no acute abnormality. CONCLUSION: 1. No CT evidence for pulmonary artery embolism through the segmental level. 2. Biapical scarring with minimal bibasilar atelectasis. 3. Otherwise, no acute abnormality. Spenser Antonio MD on February 02, 2018 at 16:30 Board Certified Radiologist. This report was verified electronically.
[2018-02-02] MEDS ORDERED: CEPH500C PO (17:47)
[2018-02-02] MEDS ORDERED: IBUPROFEN 600 MG TAB PO PRN (18:30)
[2018-02-02] MEDS: ATORVASTATIN 20 MG TAB PO SCH (20:56)
[2018-02-02] MEDS: CEPHALEXIN MONOHYDRATE 500 MG CAP PO SCH (20:56)
[2018-02-03] VITALS (11 sets, daily range): BP systolic 66–114; BP diastolic 41–67; PULSE 61–76; RESP 16–20; TEMP 95.5–98.3; O2SAT 96–98
[2018-02-03] MEDS ORDERED: ASPIRIN 325 MG TAB PO SCH (09:00)
[2018-02-03 09:02] LABS: AUTOMATED NEUTROPHIL # 3.5 TH/MM3 (1.8-7.7); BASOPHIL % 0.1 % (0.0-2.0); EOSINOPHIL # 0.2 TH/MM3 (0-0.4); EOSINOPHIL % 2.6 % (0.0-4.0); HEMOGLOBIN 12.4 GM/DL (11.6-15.3); LYMPHOCYTE # 2.2 TH/MM3 (1.0-4.8); MEAN CORPUSCULAR HEMOGLOBIN 28.9 PG (27.0-34.0); MEAN CORPUSCULAR HGB CONC 33.6 % (32.0-36.0); MEAN PLATELET VOLUME 9.3 FL (7.0-11.0); MONO % 7.5 % (0.0-8.0); MONOCYTE # 0.5 TH/MM3 (0-0.9); NEUT % 54.8 % (16.0-70.0); PLATELET COUNT 163 TH/MM3 (150-450); RED CELL DISTRIBUTION WIDTH 12.9 % (11.6-17.2); WHITE BLOOD COUNT 6.3 TH/MM3 (4.0-11.0)
[2018-02-03] MEDS: CEPHALEXIN MONOHYDRATE 500 MG CAP PO SCH ×2 (09:13→20:38)
[2018-02-03] MEDS: ASPIRIN EC 81 MG TABEC PO SCH (09:14)
[2018-02-03] MEDS: PANTOPRAZOLE SOD 40 MG DELAYED RELEASE TAB PO SCH (09:14)
[2018-02-03] MEDS: METHIMAZOLE 5 MG TAB PO SCH (09:14)
[2018-02-03] MEDS: FLECAINIDE ACETATE 100 MG TAB PO SCH ×2 (09:17→20:43)
[2018-02-03] MEDS: SODIUM CHLORIDE 0.9% FLUSH 10 ML FLUSH IV FLUSH SCH ×2 (09:17→20:44)
[2018-02-03 09:38] LABS: BICARBONATE 24.6 MEQ/L (21.0-32.0); CALCIUM 8.9 MG/DL (8.5-10.1); CREATININE 0.65 MG/DL (0.50-1.00)
--- NOTE | 2018-02-03 10:16 | PD.CARD.PN ---
Subjective Subjective Remarks chest pain improved, appears comfortable eating breakfast Objective Medications Current Medications Medications (Trade) Dose Ordered Sig/Keiko Route Start Time Stop Time Status Last Admin (NS Flush) 2 ml UNSCH PRN IV FLUSH 02/02/18 05:45 (NS Flush) 2 ml BID IV FLUSH 02/02/18 09:00 02/03/18 09:17 (Tylenol) 500 mg Q4H PRN PO 02/02/18 07:30 (Zofran Odt) 4 mg Q6H PRN PO 02/02/18 07:30 (Nitrostat Sl) 0.4 mg Q5M PRN SL 02/02/18 07:30 (Ecotrin Ec) 81 mg DAILY PO 02/02/18 09:00 02/03/18 09:14 (Lipitor) 20 mg HS PO 02/02/18 21:00 02/02/18 20:56 (Pill Splitter) 1 ea UNSCH PRN OTHER 02/02/18 08:30 (Protonix) 40 mg DAILY PO 02/03/18 09:00 02/03/18 09:14 (Tapazole) 5 mg DAILY PO 02/02/18 14:00 02/03/18 09:14 (Tambocor) 100 mg Q12HR PO 02/02/18 15:00 02/03/18 09:17 (Keflex) 500 mg Q12H PO 02/02/18 20:00 02/03/18 09:13 (Motrin) 600 mg Q6H PRN PO 02/02/18 18:30 02/02/18 19:06 Vital Signs / I&O Vital Signs Date Time Temp Pulse Resp B/P (MAP) Pulse Ox O2 Delivery O2 Flow Rate FiO2 02/03/18 09:37 96 21 02/03/18 07:50 96.7 71 20 89/60 (70) 97 02/03/18 03:53 98.0 76 16 96/55 (69) 96 02/02/18 23:12 97.9 80 16 106/56 (73) 96 02/02/18 23:00 69 02/02/18 20:06 97.9 89 18 104/98 (100) 98 02/02/18 20:06 18 02/02/18 15:18 97.7 80 20 93/50 (64) 97 02/02/18 14:53 81 02/02/18 12:13 86 02/02/18 10:51 97.8 87 20 106/61 (29) 96 Laboratory GENERAL: SKIN: Warm and dry. HEAD: Normocephalic. EYES: No scleral icterus. No injection or drainage. NECK: Supple, trachea midline. No JVD or lymphadenopathy. CARDIOVASCULAR: Regular rate and rhythm without murmurs, gallops, or rubs. RESPIRATORY: Breath sounds equal bilaterally. No accessory muscle use. GASTROINTESTINAL: Abdomen soft, non-tender, nondistended. MUSCULOSKELETAL: No cyanosis, or edema. BACK: Nontender without obvious deformity. No CVA tenderness. Laboratory Tests Test 02/03/18 06:33 White Blood Count 6.3 TH/MM3 Red Blood Count 4.30 MIL/MM3 Hemoglobin 12.4 GM/DL Hematocrit 37.0 % Mean Corpuscular Volume 86.0 FL Mean Corpuscular Hemoglobin 28.9 PG Mean Corpuscular Hemoglobin Concent 33.6 % Red Cell Distribution Width 12.9 % Platelet Count 163 TH/MM3 Mean Platelet Volume 9.3 FL Neutrophils (%) (Auto) 54.8 % Lymphocytes (%) (Auto) 35.0 % Monocytes (%) (Auto) 7.5 % Eosinophils (%) (Auto) 2.6 % Basophils (%) (Auto) 0.1 % Neutrophils # (Auto) 3.5 TH/MM3 Lymphocytes # (Auto) 2.2 TH/MM3 Monocytes # (Auto) 0.5 TH/MM3 Eosinophils # (Auto) 0.2 TH/MM3 Basophils # (Auto) 0.0 TH/MM3 CBC Comment DIFF FINAL Differential Comment Blood Urea Nitrogen 16 MG/DL Creatinine 0.65 MG/DL Random Glucose 65 MG/DL Calcium Level 8.9 MG/DL Sodium Level 139 MEQ/L Potassium Level 4.3 MEQ/L Chloride Level 106 MEQ/L Carbon Dioxide Level 24.6 MEQ/L Anion Gap 8 MEQ/L Estimat Glomerular Filtration Rate 94 ML/MIN Assessment and Plan Problem List: (1) Personal history of cardiac arrhythmia ICD Codes: Z86.79 - Personal history of other diseases of the circulatory system Status: Acute (2) Atypical chest pain ICD Codes: R07.89 - Other chest pain Status: Acute (3) Chest pain ICD Codes: R07.9 - Chest pain, unspecified Status: Acute (4) GERD (gastroesophageal reflux disease) ICD Codes: K21.9 - Gastro-esophageal reflux disease without esophagitis Status: Chronic Assessment and Plan 1.) Chest pain - improving, f/u GI eval, moderate risk for noncardiac procedure Charli Raymond MD February 03, 2018 10:16
--- NOTE | 2018-02-03 11:07 | RADRPT ---
EXAM DATE/TIME: 02/03/2018 10:12 [facility] COMPARISON: No previous studies available for comparison. INDICATIONS : Evaluate for essophageal perforation. FLUORO TIME: 1.1 minutes IMAGE COUNT: 5 CONTRAST: 1. Gastrografin (Diatrizoate Meglumine and Diatrizoate Sodium) MEDICAL HISTORY : Gastroesophageal reflux disease. Carcinoma, breast. Hodgkins Lymphoma SURGICAL HISTORY : None. ENCOUNTER: Initial ACUITY: 3 days PAIN SCORE: 0/10 LOCATION: Bilateral esophagus FINDINGS: The patient was observed during swallowing of water soluble contrast. There is normal diameter to th e esophagus a normal pharyngeal coordination. The contrast passes promptly into the stomach. No muc osal abnormality. No evidence of extravasation. CONCLUSION: Negative water soluble barium swallow without evidence of perforation or extravasation. Dequan Zhao MD on February 03, 2018 at 11:04 Board Certified Radiologist. This report was verified electronically.
[2018-02-03] MEDS ORDERED: SODIUM CHLOR 0.9% 1000 ML INJ 1,000 ML IV ONE (11:45)
[2018-02-03] MEDS ORDERED: HYDROmorphone HCL PF 0.5 MG/0.5 ML SYRINGE IV PUSH ONE (11:45)
[2018-02-03] MEDS ORDERED: LIDOCAINE VISCOUS 2% SOLN 15 ML UDC SWISH-SWAL PRN (11:45)
--- NOTE | 2018-02-03 11:59 | HHI.PR ---
Subjective Remarks Mrs. Izaguirre is a 57 year old female. She was originally admitted for chest pain. Chest pain workup is negative. She has had a recent ablation and evaluation with Gastrografin for possible esophageal perforation is also negative today. GI is following and there is a plan for EGD tomorrow. The patient continues to complain of intermittent left middle chest pain. Objective Vital Signs Date Time Temp Pulse Resp B/P (MAP) Pulse Ox O2 Delivery O2 Flow Rate FiO2 02/03/18 11:46 66 95/57 (70) 02/03/18 11:40 95.5 61 20 66/41 (49) 98 02/03/18 09:37 96 21 02/03/18 07:50 96.7 71 20 89/60 (70) 97 02/03/18 07:15 65 02/03/18 03:53 98.0 76 16 96/55 (69) 96 02/02/18 23:12 97.9 80 16 106/56 (73) 96 02/02/18 23:00 69 02/02/18 20:06 97.9 89 18 104/98 (100) 98 02/02/18 20:06 18 02/02/18 15:18 97.7 80 20 93/50 (64) 97 02/02/18 14:53 81 02/02/18 12:13 86 Result Diagram: 02/03/18 0633 02/03/18 0633 Objective Remarks GENERAL: NAD, A&Ox3 HEAD: Normocephalic. NECK: Supple, trachea midline. No lymphadenopathy. EYES: No scleral icterus. No injection or drainage. CARDIOVASCULAR: Regular rate and rhythm without murmurs, gallops, or rubs. RESPIRATORY: Breath sounds equal bilaterally. No accessory muscle use. GASTROINTESTINAL: Abdomen soft, non-tender, nondistended. MUSCULOSKELETAL: No cyanosis, or edema. SKIN: Warm and dry. NEURO: No focal neurological deficitis. A/P Problem List: (1) Chest pain ICD Code: R07.9 - Chest pain, unspecified Status: Acute (2) GERD (gastroesophageal reflux disease) ICD Code: K21.9 - Gastro-esophageal reflux disease without esophagitis Status: Chronic (3) Atypical chest pain ICD Code: R07.89 - Other chest pain Status: Acute Assessment and Plan 57-year-old female admitted secondary to atypical chest pain Atypical chest pain Cardiac evaluation is negative Possible GI etiology Normal Gastrografin, no evidence of perforation EGD tomorrow to screen for ulcer versus gastritis versus esophagitis versus other Hypothyroidism Continue Tapazole Check TSH, T3, T4 in a.m. Gastroesophageal reflux disease May be contributory Continue Protonix DVT prophylaxis NELLYs Lex Woodruff MD February 03, 2018 11:59
[2018-02-03] MEDS: SUCRALFATE 1 GM/10 ML CUP PO SCH ×3 (12:00→20:39)
--- NOTE | 2018-02-03 14:36 | HHI.PR ---
Subjective Remarks not seen for cp Objective Vitals Vital Signs Date Time Temp Pulse Resp B/P (MAP) Pulse Ox O2 Delivery O2 Flow Rate FiO2 02/03/18 12:29 66 114/67 (83) 02/03/18 11:46 66 95/57 (70) 02/03/18 11:40 95.5 61 20 66/41 (49) 98 02/03/18 09:37 96 21 02/03/18 07:50 96.7 71 20 89/60 (70) 97 02/03/18 07:15 65 02/03/18 03:53 98.0 76 16 96/55 (69) 96 02/02/18 23:12 97.9 80 16 106/56 (73) 96 02/02/18 23:00 69 02/02/18 20:06 97.9 89 18 104/98 (100) 98 02/02/18 20:06 18 02/02/18 15:18 97.7 80 20 93/50 (64) 97 02/02/18 14:53 81 Result Diagram: 02/03/18 0633 02/03/18 0633 Imaging Last Impressions Upper GI/Barium Swallow X-Ray 02/03/18 0000 Signed Impressions: Service Date/Time: Saturday, February 03, 2018 10:12 - CONCLUSION: Negative water soluble barium swallow without evidence of perforation or extravasation. Dequan Zhao MD Chest X-Ray 02/02/18 0000 Signed Impressions: Service Date/Time: Friday, February 02, 2018 02:18 - CONCLUSION: 1. Mild parenchymal scarring and apical pleural thickening. No active disease. Damian Ricks MD CT Angiography 02/02/18 0000 Signed Impressions: Service Date/Time: Friday, February 02, 2018 15:53 - CONCLUSION: 1. No CT evidence for pulmonary artery embolism through the segmental level. 2. Biapical scarring with minimal bibasilar atelectasis. 3. Otherwise, no acute abnormality. Spenser Antonio MD Objective Remarks GENERAL: NAD, A&Ox3 HEAD: Normocephalic. NECK: Supple, trachea midline. No lymphadenopathy. EYES: No scleral icterus. No injection or drainage. CARDIOVASCULAR: Regular rate and rhythm without murmurs, gallops, or rubs. RESPIRATORY: Breath sounds equal bilaterally. No accessory muscle use. GASTROINTESTINAL: Abdomen soft, non-tender, nondistended. MUSCULOSKELETAL: No cyanosis, or edema. SKIN: Warm and dry. NEURO: No focal neurological deficits. A/P Problem List: (1) Chest pain ICD Code: R07.9 - Chest pain, unspecified Status: Acute Assessment and Plan 57-year-old female admitted secondary to atypical chest pain Atypical chest pain Cardiac evaluation is negative but hx 1v CAD and SVT Possible GI etiology Normal Gastrografin, no evidence of perforation EGD tomorrow to screen for ulcer versus gastritis versus esophagitis versus other Hyperthyroidism Continue Tapazole Check TSH, T3, T4 in a.m. Gastroesophageal reflux disease May be contributory Continue Protonix DVT prophylaxis SCDs Vadim Walsh MD February 03, 2018 14:35
--- NOTE | 2018-02-03 17:08 | RADRPT ---
EXAM DATE/TIME: 02/03/2018 15:35 [facility] COMPARISON: No previous studies available for comparison. INDICATIONS : Abdominal pain. MEDICAL HISTORY : Hypothyroidism. Vertigo. Anticoagulant therapy. Chest pain. Pancreatitis. Urinary tract infection . Osteopenia. Breast cancer. Hodgkins lymphoma. Chemotherapy. SURGICAL HISTORY : Tonsillectomy. Cholecystectomy. Appendectomy. Adenoidectomy. Hysterectomy. Left knee arthoroscopy. Viktoriya mpectomy. ENCOUNTER: Initial ACUITY: 1 day PAIN SCORE: 7/10 LOCATION: Bilateral upper quadrant MEASUREMENTS: LIVER: 16.3 cm length COMMON DUCT: 5 mm RIGHT KIDNEY: 9.3 x 5.4 x 3.6 cm SPLEEN: 8.8 cm length FINDINGS: LIVER: Normal echotexture without focal lesion or ductal dilatation. COMMON DUCT: No intraluminal mass or stone visualized. GALLBLADDER: Surgically absent. PANCREAS: The visualized portions are within normal limits. RIGHT KIDNEY: No hydronephrosis, stone or mass. Slight increased renal cortical echogenicity. SPLEEN: No focal lesion. CONCLUSION: 1. Slight increased right renal cortical echogenicity may reflect medical renal disease. 2. Status post cholecystectomy. 3. Otherwise, unremarkable right upper quadrant ultrasound. Spenser Antonio MD on February 03, 2018 at 17:05 Board Certified Radiologist. This report was verified electronically.
--- NOTE | 2018-02-03 20:21 | HHI.GIFU ---
GI Follow-up Note Consult Follow-up Subjective: late entry-Patient seen earlier today .Just returned from study- negative.Complaining of nausea, epigastric pain, radiating to the back.CTA, UGI series negative .Cardiology evaluation negative so far as cause of her pain Objective: PHYSICAL EXAMINATION: Vitals signs stable No fever Vital Signs Date Time Temp Pulse Resp B/P (MAP) Pulse Ox O2 Delivery O2 Flow Rate FiO2 02/03/18 15:30 70 02/03/18 15:22 96.6 75 20 114/66 (82) 98 02/03/18 12:29 66 114/67 (83) HEENT: Pupils round and reactive to light; normocephalic; atraumatic; no jaundice. Throat is clear. NECK: Neck is supple, no JVD, no lymphadenopathy. CHEST: Chest is clear to auscultation and percussion. CARDIAC: Regular rate and rhythm with no murmur gallop or rubs. ABDOMEN: Soft, nondistended, nontender; no hepatosplenomegaly; bowel sounds are present in all four quadrants. EXTREMITIES: No clubbing, cyanosis, or edema. SKIN: Normal; no rash; no jaundice. DOCTOR OF NAPRAPATHY: No focal deficits; alert and oriented times three. Available Data (labs, X- Rays, Procedues) : Laboratory Tests Test 02/02/18 02:15 02/02/18 03:12 02/02/18 05:20 02/02/18 08:30 White Blood Count 7.2 TH/MM3 Red Blood Count 4.32 MIL/MM3 Hemoglobin 12.4 GM/DL Hematocrit 36.7 % Mean Corpuscular Volume 85.1 FL Mean Corpuscular Hemoglobin 28.8 PG Mean Corpuscular Hemoglobin Concent 33.9 % Red Cell Distribution Width 12.8 % Platelet Count 186 TH/MM3 Mean Platelet Volume 8.6 FL Neutrophils (%) (Auto) 56.5 % Lymphocytes (%) (Auto) 33.9 % Monocytes (%) (Auto) 6.7 % Eosinophils (%) (Auto) 2.4 % Basophils (%) (Auto) 0.5 % Neutrophils # (Auto) 4.0 TH/MM3 Lymphocytes # (Auto) 2.4 TH/MM3 Monocytes # (Auto) 0.5 TH/MM3 Eosinophils # (Auto) 0.2 TH/MM3 Basophils # (Auto) 0.0 TH/MM3 CBC Comment DIFF FINAL Differential Comment Blood Urea Nitrogen 17 MG/DL Creatinine 0.69 MG/DL Random Glucose 96 MG/DL Total Protein 7.6 GM/DL Albumin 3.8 GM/DL Calcium Level 8.8 MG/DL Alkaline Phosphatase 97 U/L Aspartate Amino Transf (AST/SGOT) 25 U/L Alanine Aminotransferase (ALT/SGPT) 25 U/L Total Bilirubin 0.4 MG/DL Sodium Level 141 MEQ/L Potassium Level 4.0 MEQ/L Chloride Level 106 MEQ/L Carbon Dioxide Level 26.0 MEQ/L Anion Gap 9 MEQ/L Estimat Glomerular Filtration Rate 88 ML/MIN Total Creatine Kinase 43 U/L 36 U/L 44 U/L Troponin I LESS THAN 0.02 NG/ML LESS THAN 0.02 NG/ML LESS THAN 0.02 NG/ML Lipase 239 U/L D-Dimer Quantitative (PE/DVT) 0.26 MG/L FEU Test 02/03/18 06:33 White Blood Count 6.3 TH/MM3 Red Blood Count 4.30 MIL/MM3 Hemoglobin 12.4 GM/DL Hematocrit 37.0 % Mean Corpuscular Volume 86.0 FL Mean Corpuscular Hemoglobin 28.9 PG Mean Corpuscular Hemoglobin Concent 33.6 % Red Cell Distribution Width 12.9 % Platelet Count 163 TH/MM3 Mean Platelet Volume 9.3 FL Neutrophils (%) (Auto) 54.8 % Lymphocytes (%) (Auto) 35.0 % Monocytes (%) (Auto) 7.5 % Eosinophils (%) (Auto) 2.6 % Basophils (%) (Auto) 0.1 % Neutrophils # (Auto) 3.5 TH/MM3 Lymphocytes # (Auto) 2.2 TH/MM3 Monocytes # (Auto) 0.5 TH/MM3 Eosinophils # (Auto) 0.2 TH/MM3 Basophils # (Auto) 0.0 TH/MM3 CBC Comment DIFF FINAL Differential Comment Blood Urea Nitrogen 16 MG/DL Creatinine 0.65 MG/DL Random Glucose 65 MG/DL Calcium Level 8.9 MG/DL Sodium Level 139 MEQ/L Potassium Level 4.3 MEQ/L Chloride Level 106 MEQ/L Carbon Dioxide Level 24.6 MEQ/L Anion Gap 8 MEQ/L Estimat Glomerular Filtration Rate 94 ML/MIN ASSESSMENT/PLAN: atypical chest pain -cardiac work-up negative nausea -after ba study Recommendations EGD/dilatation in am gi cocktail abd us lfts, lipase ppi It was a pleasure seeing Sol Izaguirre. Thank you for this consult. Entered by: Maggie Mendosa MD February 03, 2018 20:21
[2018-02-03] MEDS: ATORVASTATIN 20 MG TAB PO SCH (20:38)
--- NOTE | 2018-02-03 21:41 | EKG ---
Date Performed: 02/02/2018 Time Performed: 08:46:40 PTAGE: 57 years EKG: Sinus rhythm NORMAL ECG PREVIOUS TRACING : 02/02/2018 05.29 Since the previous tracing, no significant change noted DOCTOR: Cruzito Harrison Interpretating Date/Time 02/03/2018 21:39:28
[2018-02-04] VITALS (7 sets, daily range): BP systolic 97–115; BP diastolic 53–64; PULSE 66–80; RESP 16–18; TEMP 97.8–98.3; O2SAT 95–96
[2018-02-04] MEDS ORDERED: POVIDONE IODINE 5% (ANTISEPSIS KIT) 4 APPLICATIONS EACH NARE PRN (00:30)
[2018-02-04] MEDS ORDERED: CHLORHEXIDINE GLUCONATE 2 % 1 PACK (2 CLOTHS) TOPICAL PRN (00:30)
[2018-02-04] MEDS ORDERED: LACTATED RINGER'S 1000 ML IV PRN (00:30)
[2018-02-04] MEDS ORDERED: METOPROLOL TARTRATE 25 MG TAB PO PRN (00:30)
[2018-02-04] MEDS ORDERED: SODIUM CHLORID 0.9% 500 ML IV PRN (00:30)
[2018-02-04 06:59] LABS: AUTOMATED NEUTROPHIL # 4.4 TH/MM3 (1.8-7.7); BASOPHIL % 0.2 % (0.0-2.0); EOSINOPHIL # 0.1 TH/MM3 (0-0.4); EOSINOPHIL % 1.4 % (0.0-4.0); HEMATOCRIT 37.9 % (35.0-46.0); HEMOGLOBIN 12.7 GM/DL (11.6-15.3); LYMPH % 22.7 % (9.0-44.0); LYMPHOCYTE # 1.4 TH/MM3 (1.0-4.8); MEAN CELL VOLUME 85.7 FL (80.0-100.0); MEAN CORPUSCULAR HEMOGLOBIN 28.7 PG (27.0-34.0); MEAN CORPUSCULAR HGB CONC 33.5 % (32.0-36.0); MEAN PLATELET VOLUME 8.9 FL (7.0-11.0); MONO % 7.1 % (0.0-8.0); MONOCYTE # 0.5 TH/MM3 (0-0.9); NEUT % 68.6 % (16.0-70.0); PLATELET COUNT 187 TH/MM3 (150-450); RED BLOOD COUNT 4.42 MIL/MM3 (4.00-5.30); RED CELL DISTRIBUTION WIDTH 13.2 % (11.6-17.2); WHITE BLOOD COUNT 6.4 TH/MM3 (4.0-11.0)
[2018-02-04 07:41] LABS: ALBUMIN 3.6 GM/DL (3.4-5.0); ALKALINE PHOSPHATASE 129 U/L (45-117); ALT (GPT) 58 U/L (10-53); AST (GOT) 61 U/L (15-37); BICARBONATE 27.6 MEQ/L (21.0-32.0); BLOOD UREA NITROGEN 15 MG/DL (7-18); CALCIUM 8.9 MG/DL (8.5-10.1); CHLORIDE 106 MEQ/L (98-107); CREATININE 0.68 MG/DL (0.50-1.00); FREE T3 2.21 PG/ML (2.18-3.98); GLOMERULAR FILTRATION RATE 89 ML/MIN (>89); GLUCOSE,RANDOM 79 MG/DL (74-106); SODIUM (NA) 142 MEQ/L (136-145); THYROXINE (T4) 13.5 MCG/DL (4.8-13.9); TOTAL BILIRUBIN ADULT 0.6 MG/DL (0.2-1.0); TOTAL PROTEIN 7.6 GM/DL (6.4-8.2)
[2018-02-04] MEDS: FLECAINIDE ACETATE 100 MG TAB PO SCH (09:40)
[2018-02-04] MEDS ORDERED: LIDOCAINE HCL 1% PF 5 ML SYRINGE OTHER ONE (12:00)
[2018-02-04] MEDS ORDERED: PROPOFOL 200 MG/20 ML AMP IV ONE (12:00)
--- NOTE | 2018-02-04 12:23 | PD.CARD.PN ---
Subjective Subjective Remarks chest resolved, appears comfortable s/p endoscopy Objective Medications Current Medications Medications (Trade) Dose Ordered Sig/Keiko Route Start Time Stop Time Status Last Admin (NS Flush) 2 ml UNSCH PRN IV FLUSH 02/02/18 05:45 (NS Flush) 2 ml BID IV FLUSH 02/02/18 09:00 02/03/18 20:44 (Tylenol) 500 mg Q4H PRN PO 02/02/18 07:30 (Zofran Odt) 4 mg Q6H PRN PO 02/02/18 07:30 02/03/18 11:27 (Nitrostat Sl) 0.4 mg Q5M PRN SL 02/02/18 07:30 (Ecotrin Ec) 81 mg DAILY PO 02/02/18 09:00 02/03/18 09:14 (Lipitor) 20 mg HS PO 02/02/18 21:00 02/03/18 20:38 (Pill Splitter) 1 ea UNSCH PRN OTHER 02/02/18 08:30 (Protonix) 40 mg DAILY PO 02/03/18 09:00 02/03/18 09:14 (Tapazole) 5 mg DAILY PO 02/02/18 14:00 02/03/18 09:14 (Tambocor) 100 mg Q12HR PO 02/02/18 15:00 02/04/18 09:40 (Keflex) 500 mg Q12H PO 02/02/18 20:00 02/03/18 20:38 (Motrin) 600 mg Q6H PRN PO 02/02/18 18:30 02/02/18 19:06 (Carafate Liq) 1 gm ACHS PO 02/03/18 12:00 02/03/18 20:39 (Xylocaine 2% Viscous) 15 ml Q4H PRN SWISH-SWAL 02/03/18 11:45 Lactated Ringer's 1,000 ml @ 30 mls/hr Q24H PRN IV 02/04/18 00:30 02/07/18 00:29 Sodium Chloride 500 ml @ 30 mls/hr [id number] PRN IV 02/04/18 00:30 02/07/18 00:29 (Lopressor) 25 mg MUSHROOM FARMER PRN PO 02/04/18 00:30 02/07/18 00:29 (Betadine 5% Antisepsis Kit) 1 applic MUSHROOM FARMER PRN EACH NARE 02/04/18 00:30 02/07/18 00:29 (Chlorhexidine 2% Cloth) 3 pack MUSHROOM FARMER PRN TOPICAL 02/04/18 00:30 02/07/18 00:29 Vital Signs / I&O Vital Signs Date Time Temp Pulse Resp B/P (MAP) Pulse Ox O2 Delivery O2 Flow Rate FiO2 02/04/18 12:11 97.9 73 18 107/65 (79) 99 02/04/18 07:29 68 02/04/18 07:23 97.9 66 16 99/58 (72) 96 02/04/18 04:17 98.3 76 18 114/64 (81) 95 02/04/18 02:00 69 02/04/18 01:45 97.8 76 18 115/62 (79) 96 02/03/18 22:32 98.3 73 18 110/66 (81) 97 02/03/18 22:29 72 02/03/18 15:30 70 02/03/18 15:22 96.6 75 20 114/66 (82) 98 02/03/18 12:29 66 114/67 (83) I/O 02/03/18 02/03/18 02/03/18 02/04/18 02/04/18 02/04/18 07:00 15:00 23:00 07:00 15:00 23:00 Intake Total 700 ml Balance 700 ml Other 700 ml # Voids 1 Laboratory GENERAL: SKIN: Warm and dry. HEAD: Normocephalic. EYES: No scleral icterus. No injection or drainage. NECK: Supple, trachea midline. No JVD or lymphadenopathy. CARDIOVASCULAR: Regular rate and rhythm without murmurs, gallops, or rubs. RESPIRATORY: Breath sounds equal bilaterally. No accessory muscle use. GASTROINTESTINAL: Abdomen soft, non-tender, nondistended. MUSCULOSKELETAL: No cyanosis, or edema. BACK: Nontender without obvious deformity. No CVA tenderness. Laboratory Tests Test 02/04/18 06:14 White Blood Count 6.4 TH/MM3 Red Blood Count 4.42 MIL/MM3 Hemoglobin 12.7 GM/DL Hematocrit 37.9 % Mean Corpuscular Volume 85.7 FL Mean Corpuscular Hemoglobin 28.7 PG Mean Corpuscular Hemoglobin Concent 33.5 % Red Cell Distribution Width 13.2 % Platelet Count 187 TH/MM3 Mean Platelet Volume 8.9 FL Neutrophils (%) (Auto) 68.6 % Lymphocytes (%) (Auto) 22.7 % Monocytes (%) (Auto) 7.1 % Eosinophils (%) (Auto) 1.4 % Basophils (%) (Auto) 0.2 % Neutrophils # (Auto) 4.4 TH/MM3 Lymphocytes # (Auto) 1.4 TH/MM3 Monocytes # (Auto) 0.5 TH/MM3 Eosinophils # (Auto) 0.1 TH/MM3 Basophils # (Auto) 0.0 TH/MM3 CBC Comment DIFF FINAL Differential Comment Blood Urea Nitrogen 15 MG/DL Creatinine 0.68 MG/DL Random Glucose 79 MG/DL Total Protein 7.6 GM/DL Albumin 3.6 GM/DL Calcium Level 8.9 MG/DL Alkaline Phosphatase 129 U/L Aspartate Amino Transf (AST/SGOT) 61 U/L Alanine Aminotransferase (ALT/SGPT) 58 U/L Total Bilirubin 0.6 MG/DL Sodium Level 142 MEQ/L Potassium Level 3.8 MEQ/L Chloride Level 106 MEQ/L Carbon Dioxide Level 27.6 MEQ/L Anion Gap 8 MEQ/L Estimat Glomerular Filtration Rate 89 ML/MIN Lipase 169 U/L Thyroxine (T4) 13.5 MCG/DL Free Triiodothyronine (T3) pg/dL 2.21 PG/ML Thyroid Stimulating Hormone 3rd Gen 2.510 uIU/ML Assessment and Plan Problem List: (1) Personal history of cardiac arrhythmia ICD Codes: Z86.79 - Personal history of other diseases of the circulatory system Status: Acute (2) Atypical chest pain ICD Codes: R07.89 - Other chest pain Status: Acute (3) Chest pain ICD Codes: R07.9 - Chest pain, unspecified Status: Acute (4) GERD (gastroesophageal reflux disease) ICD Codes: K21.9 - Gastro-esophageal reflux disease without esophagitis Status: Chronic Assessment and Plan 1.) Chest pain - resolved, gastritis found on egd, stable and assymptomatic post endoscopy, advised patient to f/u with 02/06/18; she has f/u with Dr Feldman 02/05/18 Charli Raymond MD February 04, 2018 12:23
[2018-02-04] MEDS: METHIMAZOLE 5 MG TAB PO SCH (12:45)
[2018-02-04] MEDS: PANTOPRAZOLE SOD 40 MG DELAYED RELEASE TAB PO SCH (12:45)
[2018-02-04] MEDS: CEPHALEXIN MONOHYDRATE 500 MG CAP PO SCH (12:48)
[2018-02-04] MEDS: ASPIRIN EC 81 MG TABEC PO SCH (12:48)
--- NOTE | 2018-02-04 12:48 | PD.PROCEDR ---
GI Procedure PROCEDURE PERFORMED EGD with biopsies INDICATION FOR PROCEDURE Chest pain, history of reflux, patient on PPI PROCEDURE: The procedure, risks and benefits were discussed with Patient/POA and informed consent was obtained. Anesthesia sedated Patient with Diprivan. Patient was placed in the left lateral decubitus position. EGD: The Pentax videoscope was introduced through the oropharynx and advanced to the second portion of the duodenum under direct visualization. Retroflexion was performed in the stomach. FINDINGS: The esophagus this appeared to be unremarkable the Z line appeared to be irregular this would be a short segment Urena's if confirmed this was biopsied The stomach there was some mild patchy erythema in the antrum no ulcerations or erosions this was biopsied the rest of the stomach was unremarkable The duodenum this was normal ESTIMATED BLOOD LOSS: None SPECIMENS REMOVED: Esophageal and gastric biopsies COMPLICATIONS: None IMPRESSION: Irregular Z line Mild gastritis PLAN: Await biopsies Continue PPI Follow-up with GI post discharge Not much to add from a GI perspective we will sign off Gurvinder Duarte MD February 04, 2018 12:48
[2018-02-04] MEDS: SODIUM CHLORIDE 0.9% FLUSH 10 ML FLUSH IV FLUSH SCH (12:49)
[2018-02-04] MEDS: SUCRALFATE 1 GM/10 ML CUP PO SCH ×2 (12:50→13:38)
--- NOTE | 2018-02-04 14:14 | HHI.DCPOC ---
Discharge Care Plan Diagnosis: (1) Atypical chest pain Your Health Problems Are: Difficulty with ADL Exercise Tolerance Goals to Promote Your Health * To prevent worsening of your condition and complications * To maintain your health at the optimal level Directions to Meet Your Goals Take your medications as prescribed Follow your dietary instruction Follow activity as directed Keep your appointments as scheduled Take your immunizations and boosters as scheduled If your symptoms worsen call your PCP, if no PCP go to Urgent Care Center or Emergency Room Smoking is Dangerous to Your Health. Avoid second hand smoke Call the 24-hour hour crisis hotline for domestic abuse at Vadim Walsh MD February 04, 2018 14:14
[2018-02-04] MEDS ORDERED: CLAR10CA3 PO (14:18)
[2018-02-04] MEDS ORDERED: PANT40TA3 PO (14:18)
[2018-02-04] MEDS ORDERED: FLUT1SPR5 EACH NARE (14:18)
--- NOTE | 2018-02-04 14:22 | HHI.PR ---
Subjective Remarks Follow-up chest pain. No further chest pain tolerated EGD. Results discussed with patient. Antireflux mechanisms discussed with patient. Complains of PND and cough. Already been evaluated by ENT. Requesting refill of Claritin and Flonase Objective Vitals Vital Signs Date Time Temp Pulse Resp B/P (MAP) Pulse Ox O2 Delivery O2 Flow Rate FiO2 02/04/18 13:53 78 16 108/61 (77) 96 02/04/18 12:11 97.9 73 18 107/65 (79) 99 02/04/18 07:29 68 02/04/18 07:23 97.9 66 16 99/58 (72) 96 02/04/18 04:17 98.3 76 18 114/64 (81) 95 02/04/18 02:00 69 02/04/18 01:45 97.8 76 18 115/62 (79) 96 02/03/18 22:32 98.3 73 18 110/66 (81) 97 02/03/18 22:29 72 02/03/18 15:30 70 02/03/18 15:22 96.6 75 20 114/66 (82) 98 I/O 02/03/18 02/03/18 02/03/18 02/04/18 02/04/18 02/04/18 07:00 15:00 23:00 07:00 15:00 23:00 Intake Total 700 ml Balance 700 ml Other 700 ml # Voids 1 Result Diagram: 02/04/18 0614 02/04/18 0614 Imaging Last Impressions Upper GI/Barium Swallow X-Ray 02/03/18 0000 Signed Impressions: Service Date/Time: Saturday, February 03, 2018 10:12 - CONCLUSION: Negative water soluble barium swallow without evidence of perforation or extravasation. Dequan Zhao MD Liver Ultrasound 02/03/18 0000 Signed Impressions: Service Date/Time: Saturday, February 03, 2018 15:35 - CONCLUSION: 1. Slight increased right renal cortical echogenicity may reflect medical renal disease. 2. Status post cholecystectomy. 3. Otherwise, unremarkable right upper quadrant ultrasound. Spenser Antonio MD Chest X-Ray 02/02/18 0000 Signed Impressions: Service Date/Time: Friday, February 02, 2018 02:18 - CONCLUSION: 1. Mild parenchymal scarring and apical pleural thickening. No active disease. Damian Ricks MD CT Angiography 02/02/18 0000 Signed Impressions: Service Date/Time: Friday, February 02, 2018 15:53 - CONCLUSION: 1. No CT evidence for pulmonary artery embolism through the segmental level. 2. Biapical scarring with minimal bibasilar atelectasis. 3. Otherwise, no acute abnormality. Spenser Antonio MD Objective Remarks GENERAL: NAD, A&Ox3 CARDIOVASCULAR: Regular rate and rhythm without murmurs, gallops, or rubs. RESPIRATORY: Breath sounds equal bilaterally. No accessory muscle use. GASTROINTESTINAL: Abdomen soft, non-tender, nondistended. MUSCULOSKELETAL: No cyanosis, or edema. SKIN: Warm and dry. NEURO: No focal neurological deficits. Procedures EGD A/P Problem List: (1) Chest pain ICD Code: R07.9 - Chest pain, unspecified Status: Acute Assessment and Plan 57-year-old female admitted secondary to atypical chest pain Atypical chest pain Cardiac evaluation is negative but hx 1v CAD and SVT, continue aspirin and consider beta-rena if tolerated Possible GI etiology Normal Gastrografin, no evidence of perforation EGD with irregular Z line status post biopsy and gastritis. Continue PPI and follow-up biopsy results. Antireflux measures discussed with patient Gastroesophageal reflux disease May be contributory As above Mild transaminitis. Asymptomatic. Ultrasound shows unremarkable liver surgically absent gallbladder Continue to monitor patient on statin Hyperthyroidism Continue Tapazole Unremarkable thyroid function test DVT prophylaxis Vadim Mack MD February 04, 2018 14:22
--- NOTE | 2018-02-04 14:54 | HHI.DS ---
Discharge Summary Admission Date February 02, 2018 at 05:41 Discharge Date: February 04, 2018 Admitting Diagnosis chest pain (1) Chest pain ICD Code: R07.9 - Chest pain, unspecified Diagnosis: Principal Status: Acute Procedures EGD Brief History - From Admission 57 year old female with history of SVT and hyperthyroidism presents to ER for further evaluation of chest pain. Onset 100am, awakened from sleep. Location left anterior chest. Characterized as squeezing. Radiation left side of neck and left arm. Duration 5 hours. Associated symptoms of diaphoreses. Denies nausea, vomiting, or dyspnea. Hurt to take a deep breath in substernal and epigastric area. No particular movements makes pain better or worse. Denies similar pain in the past. Reports rapid heart rate of 120, however did not feel like her "normal SVT episodes." Current chest pain free, however breathing continues to hurt with inspiration. Endorses current sinus infection, currently on antibiotics. Denies any cough or chest congestion. CBC/BMP: 02/04/18 0614 02/04/18 0614 Significant Findings Laboratory Tests Test 02/02/18 02:15 02/02/18 03:12 02/02/18 05:20 02/02/18 08:30 Estimat Glomerular Filtration Rate 88 ML/MIN (>89) Troponin I LESS THAN 0.02 NG/ML LESS THAN 0.02 NG/ML LESS THAN 0.02 NG/ML Test 02/03/18 06:33 02/04/18 06:14 Random Glucose 65 MG/DL (74-106) Alkaline Phosphatase 129 U/L (45-117) Aspartate Amino Transf (AST/SGOT) 61 U/L (15-37) Alanine Aminotransferase (ALT/SGPT) 58 U/L (10-53) Imaging Last Impressions Upper GI/Barium Swallow X-Ray 02/03/18 0000 Signed Impressions: Service Date/Time: Saturday, February 03, 2018 10:12 - CONCLUSION: Negative water soluble barium swallow without evidence of perforation or extravasation. Dequan Zhao MD Liver Ultrasound 02/03/18 0000 Signed Impressions: Service Date/Time: Saturday, February 03, 2018 15:35 - CONCLUSION: 1. Slight increased right renal cortical echogenicity may reflect medical renal disease. 2. Status post cholecystectomy. 3. Otherwise, unremarkable right upper quadrant ultrasound. Spenser Antonio MD Chest X-Ray 02/02/18 0000 Signed Impressions: Service Date/Time: Friday, February 02, 2018 02:18 - CONCLUSION: 1. Mild parenchymal scarring and apical pleural thickening. No active disease. Damian Ricks MD CT Angiography 02/02/18 0000 Signed Impressions: Service Date/Time: Friday, February 02, 2018 15:53 - CONCLUSION: 1. No CT evidence for pulmonary artery embolism through the segmental level. 2. Biapical scarring with minimal bibasilar atelectasis. 3. Otherwise, no acute abnormality. Spenser Antonio MD PE at Discharge GENERAL: NAD, A&Ox3 CARDIOVASCULAR: Regular rate and rhythm without murmurs, gallops, or rubs. RESPIRATORY: Breath sounds equal bilaterally. No accessory muscle use. GASTROINTESTINAL: Abdomen soft, non-tender, nondistended. MUSCULOSKELETAL: No cyanosis, or edema. SKIN: Warm and dry. NEURO: No focal neurological deficits. Hospital Course 57-year-old female admitted secondary to atypical chest pain Atypical chest pain Cardiac evaluation is negative but hx 1v CAD and SVT, continue aspirin and consider beta-rena if tolerated Possible GI etiology Normal Gastrografin, no evidence of perforation EGD with irregular Z line status post biopsy and gastritis. Continue PPI and follow-up biopsy results. Antireflux measures discussed with patient Gastroesophageal reflux disease May be contributory As above Mild transaminitis. Asymptomatic. Ultrasound shows unremarkable liver surgically absent gallbladder Continue to monitor patient on statin Hyperthyroidism Continue Tapazole Unremarkable thyroid function test DVT prophylaxis SCDs Pt Condition on Discharge: Stable Discharge Disposition: Discharge Home Discharge Time: > 30 minutes Discharge Instructions DIET: Follow Instructions for: Heart Healthy Diet Activities you can perform: Regular-No Restrictions Activities to Avoid: Driving Follow up Referrals: Cardiology - 1 Week Gastroenterology - 1 Week PCP Follow-up - 1 Week New Medications: Fluticasone Nasal [place] (Flonase Nasal [place]) 50 Mcg/Act [place] 100 MCG EACH NARE QD for Allergies, #1 BOTTLE 0 Refills Loratadine (Claritin) 10 Mg Cap 10 MG PO DAILY for Allergy Management, #30 CAP 0 Refills Pantoprazole (Pantoprazole) 40 Mg Tab 40 MG PO DAILY for Manage Heartburn, #30 TAB Continued Medications: Alprazolam (Alprazolam) 0.5 Mg Tab 0.5 TAB PO Q6H PRN for ANXIETY, TAB [address] (Aspirin EC) 81 Mg Tabdr 81 MG PO DAILY for Blood Clot Prevention for 90 Days, #90 TAB 0 Refills Atorvastatin (Atorvastatin) 20 Mg Tab 20 MG PO HS for Cholesterol Management, #30 TAB 0 Refills Cephalexin (Cephalexin) 500 Mg Cap 500 MG PO Q12H for Infection, CAP 0 Refills Flecainide (Flecainide) 50 Mg Tab 100 MG PO BID for Regulate Heart Beat, #60 TAB 0 Refills Meclizine (Meclizine) 25 Mg Tab 25 MG PO DIRECTED PRN for VERTIGO, TAB 0 Refills Methimazole (Tapazole) 5 Mg Tab 5 MG PO DAILY for Thyroid, #30 TAB 0 Refills Vadim Walsh MD February 04, 2018 14:54
== END 2018-02-04 16:45 | disposition home or self-care (01) ==
LOC: NEPE 02:02 → NEDA 05:41 → NEPFCDU 06:24
PROVIDERS: ADMIT Internal Medicine; ATTEND Internal Medicine
DX: R07.89 Other chest pain (principal); K29.50 Unspecified chronic gastritis without bleeding; I25.10 Atherosclerotic heart disease of native coronary artery without angina pectoris; I48.91 Unspecified atrial fibrillation; I49.3 Ventricular premature depolarization; R11.0 Nausea; R74.0 Nonspecific elevation of levels of transaminase and lactic acid dehydrogenase [LDH]; R91.8 Other nonspecific abnormal finding of lung field; E05.90 Thyrotoxicosis, unspecified without thyrotoxic crisis or storm; K21.9 Gastro-esophageal reflux disease without esophagitis; M54.9 Dorsalgia, unspecified; G89.29 Other chronic pain; Z85.3 Personal history of malignant neoplasm of breast; Z85.71 Personal history of Hodgkin lymphoma; Z92.3 Personal history of irradiation; Z79.899 Other long term (current) drug therapy; Z79.82 Long term (current) use of aspirin
CPT/HCPCS: 00731; 43239; 71045; 71275; 74220; 76705; 76937; 80048; 80053; 82550; 83690; 84436; 84443; 84481; 84484; 85025; 85379; 88305; 88312; 93005; 96361; 96374; 96375; 99285; G0378; J1885; J2060; J7030; Q9963; Q9967